=== PATIENT | male | born 1990 | race Caucasian/White ===

== ENCOUNTER 2016-06-25 06:15 | Emergency (ER) | payer SELFPAY ==
[2016-06-25] MEDS ORDERED: IPRATROPIUM/ALBUTEROL 0.5-2.5 MG/3 ML AMPUL NEB ONE (06:36)
[2016-06-25] MEDS ORDERED: NORMAL SALINE 1000 ML 1,000 ML IV ONE ×2 (06:36→07:51)
--- NOTE | 2016-06-25 06:57 | ER Document Report ---
ED Respiratory Problem - General Mode of Arrival: Medic Information source: Patient, Emergency Med Personnel TRAVEL OUTSIDE OF THE [place] IN LAST 30 DAYS: No - HPI Patient complains to provider of: Asthma Onset: Last week Duration: Continuous, Worse/persistent Initiating Event: Allergy - Possible dog allergy Context: Hx asthma, Hx COPD At home treatment: Bronchodilators EMS treatments: Bronchodilators, CPAP, Solumedrol Associated symptoms: Congestion, Cough, Difficulty breathing, Short of breath, Wheezing <PERLA MORGAN - Last Filed: 06/25/16 06:51> <COLETTE ENRIQUE - Last Filed: 06/25/16 10:31> - General Chief Complaint: Breathing Difficulty Stated Complaint: RESPIRATORY DISTRESS Notes: Patient is a 26-year-old male, with history including asthma and COPD, presenting to the emergency department via EMS with concerns of difficulty breathing onset last week, acutely worse this morning. Patient reports taking 150 "hits" on his inhaler, and it has stopped working. EMS administered 125 Solu-Medrol, 2 g magnesium, 1 A&A, 2 albuterol, patient on CPAP en route. EMS reports patient's O2 saturation being in the 80s when they first arrived. Patient states that he now is feeling much better. Patient admits to cough, but states he cannot get anything out. Patient does not know if he has been sick, but he does admit that his dog has been staying inside because he ran away last week, and he is allergic to dog and cat dander. Patient quit smoking in 2014, takes Advair and albuterol at home, and states that it has been 6 months since he was last on prednisone. (PERLA MORGAN) - Related Data Allergies/Adverse Reactions: peanut [Peanut] Allergy (Intermediate, Verified 10/08/15 09:58) ITCHY THROAT Past Medical History - General Information source: Patient - Social History Smoking Status: Former Smoker - Quit 2014 Family History: Reviewed & Not Pertinent Pulmonary Medical History: Reports: Hx Asthma, Hx COPD GI Medical History: Reports: Hx Gastroesophageal Reflux Disease Skin Medical History: Reports Hx Eczema - Immunizations Hx Diphtheria, Pertussis, Tetanus Vaccination: No Hx Pneumococcal Vaccination: 03/03/13 <PERLA MORGAN - Last Filed: 06/25/16 06:51> Review of Systems - Review of Systems Constitutional: No symptoms reported EENT: No symptoms reported Cardiovascular: No symptoms reported Respiratory: See HPI, Cough, Short of breath, Wheezing Gastrointestinal: No symptoms reported Genitourinary: No symptoms reported Male Genitourinary: No symptoms reported Musculoskeletal: No symptoms reported Skin: No symptoms reported Hematologic/Lymphatic: No symptoms reported Neurological/Psychological: No symptoms reported -: Yes All other systems reviewed and negative <PERLA MORGAN - Last Filed: 06/25/16 06:51> Physical Exam - General General appearance: Appears well, Alert - HEENT Head: Normocephalic, Atraumatic Eyes: Normal Pupils: PERRL - Respiratory Respiratory status: No respiratory distress Chest status: Nontender Breath sounds: Wheezing - Right-mild wheezes and rhonchi. Left- Very tight with more significant wheezing Chest palpation: Normal - Cardiovascular Rhythm: Regular Heart sounds: Normal auscultation Murmur: No - Abdominal Inspection: Normal Distension: No distension Bowel sounds: Normal Tenderness: Nontender Organomegaly: No organomegaly - Back Back: Normal, Nontender - Extremities General upper extremity: Normal inspection, Nontender General lower extremity: Normal inspection, Nontender - Neurological Neuro grossly intact: Yes Cognition: Normal Orientation: AAOx4 Wallace Coma Scale Eye Opening: Spontaneous Wallace Coma Scale Verbal: Oriented Clinton Coma Scale Motor: Obeys Commands Wallace Coma Scale Total: 15 Speech: Normal - Psychological Associated symptoms: Normal affect, Normal mood - Skin Skin Temperature: Warm Skin Moisture: Dry Skin Color: Normal <PERLA MORGAN - Last Filed: 06/25/16 06:51> Course <PERLA MORGAN - Last Filed: 06/25/16 06:51> - Laboratory Result Diagrams: 06/25/16 06:20 06/25/16 06:20 - Diagnostic Test Radiology reviewed: Image reviewed, Reports reviewed - Chest x-ray does not show an acute process - EKG Interpretation by Nc EKG shows normal: Sinus rhythm, Lutz, Intervals, QRS Complexes, ST-T Waves Rate: Normal - 99 Rhythm: Arrthymia <COLETTE ENRIQUE - Last Filed: 06/25/16 10:31> - Re-evaluation Re-evalutation: 06/25/16 10:28 At this time the patient states his breathing feels back to normal for him. There is only very slight faint wheezes noted. His pulse ox is 90% on room air , but he states this feels normal to him. He understands the need to have the dog outside of the house. He states he still has plenty of Advair at this time. (COLETTE ENRIQUE) - Vital Signs Vital signs: Temp Pulse Resp BP Pulse Ox 98.1 F 104 H 25 H 113/71 94 06/25/16 07:58 06/25/16 07:45 06/25/16 09:01 06/25/16 09:01 06/25/16 09:01 - Laboratory Laboratory results interpreted by me: 06/25/16 06/25/16 06/25/16 06:20 06:20 08:18 WBC 10.8 H Eosinophils % 6.7 H Absolute Eosinophils 0.7 H Sodium 146.6 H Chloride 108 H Urine Ketones TRACE H Discharge <PERLA MORGAN - Last Filed: 06/25/16 06:51> <COLETTE ENRIQUE - Last Filed: 06/25/16 10:31> - Discharge Clinical Impression: Acute severe exacerbation of asthma Condition: Stable Disposition: HOME, SELF-CARE Additional Instructions: Start the prednisone as prescribed tomorrow. Continue your Advair. Use the albuterol inhaler as needed for wheezing. Follow-up with a local medical doctor to help manage your asthma. RETURN TO THE EMERGENCY ROOM IF ANY NEW OR WORSENING SYMPTOMS. Prescriptions: Albuterol Sulfate [Proair HFA] 1 - 2 puff IH Q4 PRN #1 inhaler PRN Reason: Prednisone [Deltasone 10 mg Tablet] 10 mg PO ASDIR PRN #21 tablet PRN Reason: Scribe Attestation: 06/25/16 10:31 I personally performed the services described in the documentation, reviewed and edited the documentation which was dictated to the scribe in my presence, and it accurately records my words and actions. (COLETTE ENRIQUE)
[2016-06-25] MEDS ORDERED: PREDNISONE 20 MG TABLET PO ONE (07:45)
[2016-06-25 08:03] LABS: ABSOLUTE BASOPHILS # (AUTO) 0.1 10^3/uL (0.0-0.2); ABSOLUTE EOSINOPHILS # (AUTO) 0.7 10^3/uL (0.0-0.6); ABSOLUTE LYMPHOCYTES (AUTO) 1.8 10^3/uL (0.5-4.7); ABSOLUTE MONOCYTES (AUTO) 0.7 10^3/uL (0.1-1.4); ABSOLUTE NEUT (AUTO) 7.5 10^3/uL (1.7-8.2); BASOPHILS % (AUTO) 0.6 % (0-2); EOSINOPHILS % (AUTO) 6.7 % (0-6); HEMATOCRIT 46.5 % (37.9-51.0); HEMOGLOBIN 16.2 g/dL (13.5-17.0); HGB HCT DIFFERENCE 2.1; LYMPHOCYTES % (AUTO) 16.8 % (13-45); MEAN CORPUSCULAR HEMOGLOBIN 29.5 pg (27.0-33.4); MEAN CORPUSCULAR HGB CONC 34.8 g/dL (32.0-36.0); MEAN CORPUSCULAR VOLUME 85 fl (80-97); MONOCYTES % (AUTO) 6.8 % (3-13); RED BLOOD COUNT 5.48 10^6/uL (4.35-5.55); SEGMENTED NEUTROPHILS % (AUTO) 69.1 % (42-78); WHITE BLOOD COUNT 10.8 10^3/uL (4.0-10.5)
[2016-06-25 08:22] LABS: ALANINE AMINOTRANSFERASE 34 U/L (21-72); ALBUMIN 4.5 g/dL (3.5-5.0); ALKALINE PHOSPHATASE 108 U/L (38-126); ANION GAP 15 (5-19); ASPARTATE AMINO TRANSFERASE 23 U/L (17-59); BILIRUBIN,DIRECT 0.2 mg/dL (0.0-0.4); BILIRUBIN,TOTAL 0.7 mg/dL (0.2-1.3); BLOOD UREA NITROGEN 8 mg/dL (7-20); CALCIUM 9.6 mg/dL (8.4-10.2); CARBON DIOXIDE 24 mmol/L (22-30); CHLORIDE 108 mmol/L (98-107); CREATININE RESULT 0.97 mg/dL (0.52-1.25); GLUCOSE 94 mg/dL (75-110); POTASSIUM 4.3 mmol/L (3.6-5.0); SODIUM 146.6 mmol/L (137-145); TOTAL PROTEIN 7.3 g/dL (6.3-8.2)
[2016-06-25 08:42] LABS: APPEARANCE,URINE CLEAR; BILIRUBIN,URINE NEGATIVE (NEGATIVE); GLUCOSE, URINE NEGATIVE (NEGATIVE); KETONES,URINE TRACE mg/dL (NEGATIVE); LEUKOCYTE ESTERASE,URINE NEGATIVE (NEGATIVE); NITRITE,URINE NEGATIVE (NEGATIVE); PROTEIN,URINE NEGATIVE (NEGATIVE); URINE SPECIFIC GRAVITY 1.008; UROBILINOGEN,URINE NEGATIVE mg/dL (<2.0)
[2016-06-25] MEDS ORDERED: ALBUTEROL SULFATE 0.083% NEB 2.5 MG/3 ML AMPUL NEB ONE (09:13)
[2016-06-25 10:33] VITALS: BP 123/86
[2016-06-25] MEDS ORDERED: ALBUTEROL SULFATE HFA (90 MCG/PUFF) 8 GM MDI (1 MDI/ER DISP) IH ONE (10:37)
== END 2016-06-25 10:46 | disposition home or self-care (01) ==
LOC: ER 06:15
DX: J45.901 Unspecified asthma with (acute) exacerbation (principal); R06.02 Shortness of breath; J44.9 Chronic obstructive pulmonary disease, unspecified; Z79.899 Other long term (current) drug therapy; Z87.891 Personal history of nicotine dependence
CPT/HCPCS: 94640 ×2; 99285; 96360; 96361; 36415; 85025; 80053; 81001; 71010; J7512; J7030; J3490; J7620

== ENCOUNTER 2017-04-04 01:03 | Inpatient (IN) | payer SELFPAY ==
[2017-04-04] MEDS ORDERED: NORMAL SALINE 1000 ML 1,000 ML IV ONE (01:24)
[2017-04-04] MEDS ORDERED: MAGNESIUM SULFATE/D5W 1 GM/100 ML RTUPB IV SCH (01:30)
[2017-04-04] MEDS ORDERED: IPRATROPIUM/ALBUTEROL 0.5-2.5 MG/3 ML AMPUL NEB ONE ×2 (01:31→03:39)
--- NOTE | 2017-04-04 01:31 | ER Document Report ---
ED Respiratory Problem - General Mode of Arrival: Ambulatory Information source: Patient TRAVEL OUTSIDE OF THE [place] IN LAST 30 DAYS: No <MARCO WOLFF - Last Filed: 04/04/17 03:01> <VIRGINIA AUGUST - Last Filed: 04/04/17 05:50> - General Stated Complaint: FEVER Time Seen by Provider: 04/04/17 01:20 Notes: Patient is a 27 year old male that presents to the emergency department today with complaints of shortness of breath. Patient states he woke up from a sleep "drenched in sweat". He has a history of asthma. Patient complains of nasal congestion. (MARCO WOLFF) - Related Data Allergies/Adverse Reactions: peanut [Peanut] Allergy (Intermediate, Verified 10/08/15 09:58) ITCHY THROAT Past Medical History - General Information source: Patient - Social History Smoking Status: Never Smoker Cigarette use (# per day): No Frequency of alcohol use: None Drug Abuse: None Lives with: Family Family History: Reviewed & Not Pertinent Pulmonary Medical History: Reports: Hx Asthma, Hx COPD GI Medical History: Reports: Hx Gastroesophageal Reflux Disease Skin Medical History: Reports Hx Eczema Surgical Hx: Negative - Immunizations Hx Diphtheria, Pertussis, Tetanus Vaccination: No Hx Pneumococcal Vaccination: 03/03/13 <MARCO WOLFF - Last Filed: 04/04/17 03:01> Review of Systems - Review of Systems Constitutional: See HPI, Fever EENT: No symptoms reported Cardiovascular: No symptoms reported Respiratory: See HPI, Short of breath Gastrointestinal: No symptoms reported Genitourinary: No symptoms reported Male Genitourinary: No symptoms reported Musculoskeletal: No symptoms reported Skin: No symptoms reported Hematologic/Lymphatic: No symptoms reported Neurological/Psychological: No symptoms reported -: Yes All other systems reviewed and negative <MARCO WOLFF - Last Filed: 04/04/17 03:01> Physical Exam - Vital signs Interpretation: Tachycardic, Tachypneic, Febrile <MARCO WOLFF - Last Filed: 04/04/17 03:01> <VIRGINIA AUGUST - Last Filed: 04/04/17 05:50> - Vital signs Vitals: Resp Pulse Ox 23 H 92 04/04/17 01:11 04/04/17 01:11 - Notes Notes: Physical Exam: General: Alert, mild distress. HEENT: Normocephalic. Atraumatic. PERRL. Extraocular movements intact. Oropharynx clear. Neck: Supple. Non-tender. Respiratory: Mild respiratory distress. Wheezing throughout bilaterally. Tachypneic. Cardiovascular: Tachycardic, regular rhythm.3 Abdominal: Normal Inspection. Non-tender. No distension. Normal Bowel Sounds. Back: Non-tender. No deformity or step off. Extremities: Moves all four extremities. Upper extremities: Normal inspection. Normal ROM. Lower extremities: Normal inspection. No edema. Normal ROM. Neurological: Normal cognition. AAOx4. Normal speech. Psychological: Normal affect. Normal Mood. Skin: Warm. Dry. Normal color. (MARCO WOLFF) Course - Laboratory Result Diagrams: 04/04/17 01:45 04/04/17 01:45 <MARCO WOLFF - Last Filed: 04/04/17 03:01> - Laboratory Result Diagrams: 04/04/17 01:45 04/04/17 01:45 - Diagnostic Test Radiology reviewed: Image reviewed, Reports reviewed <VIRGINIA AUGUST - Last Filed: 04/04/17 05:50> - Re-evaluation Re-evalutation: 04/04/17 Patient is a 27-year-old male who comes in with upper respiratory symptoms. Flu swab negative. Blood work within normal limits. Patient has been intubated in the past for flu. Blood gas within normal limits however the patient is still wheezing. Ambulated in the department and oxygen saturation drops to 80s. Patient will be admitted. Placed on BiPAP so that the patient could rest. Discussed with the hospitalist service and will accept the patient for admission. Patient agrees with this plan. Stable time of admission. (VIRGINIA AUGUST) - Vital Signs Vital signs: Temp Pulse Resp BP Pulse Ox 100.6 F H 128 H 14 115/75 96 04/04/17 01:30 04/04/17 01:30 04/04/17 05:01 04/04/17 05:01 04/04/17 05:01 - Laboratory Laboratory results interpreted by nv: 04/04/17 04/04/17 04/04/17 01:45 01:45 01:45 Plt Count 134 L Seg Neuts % (Manual) 95 H Band Neutrophils % 1 L Lymphocytes % (Manual) 2 L Monocytes % (Manual) 2 L Abs Lymphs (Manual) 0.1 L VBG pCO2 34.8 L Potassium 3.3 L Glucose 167 H Critical Care Note - Critical Care Note Total time excluding time spent on procedures (mins): 45 - Evaluation and management of respiratory distress with multiple re-evaluations, management of status asthmaticus, coordination of admission, counseling of patient <VIRGINIA AUGUST - Last Filed: 04/04/17 05:50> Discharge <MARCO WOLFF - Last Filed: 04/04/17 03:01> - Discharge Admitting Provider: [facility] Unit Admitted: [facility] <VIRGINIA AUGUST - Last Filed: 04/04/17 05:50> - Discharge Clinical Impression: Status asthmaticus Qualifiers: Asthma severity: moderate Asthma persistence: persistent Qualified Code(s): J45.42 - Moderate persistent asthma with status asthmaticus Fever Qualifiers: Fever type: unspecified Qualified Code(s): R50.9 - Fever, unspecified Condition: Stable Disposition: ADMITTED INPATIENT Scribe Attestation: 04/04/17 05:50 I personally performed the services described in the documentation, reviewed and edited the documentation which was dictated to the scribe in my presence, and it accurately records my words and actions. (VIRGINIA AUGUST) Scribe Documentation - Scribe Written by Brittaneyibramirez:: Katharine Paige, 04/04/2017 0258 acting as scribe for :: Pooja <MARCO WOLFF - Last Filed: 04/04/17 03:01>
--- NOTE | 2017-04-04 02:21 | RADIOLOGY REPORT (SQ) ---
EXAM DESCRIPTION: CHEST SINGLE VIEW COMPLETED DATE/TIME: 04/04/2017 1:46 am REASON FOR STUDY: sob COMPARISON: Chest x-ray 06/25/2016. EXAM PARAMETERS: NUMBER OF VIEWS: One view. TECHNIQUE: 2 frontal radiographic views of the chest acquired. RADIATION DOSE: NA LIMITATIONS: None. FINDINGS: LUNGS AND PLEURA: No consolidation, pneumothorax or pleural effusion. MEDIASTINUM AND HILAR STRUCTURES: No masses. Contour normal. HEART AND VASCULAR STRUCTURES: Heart normal in size. Normal vasculature. BONES: No acute findings. HARDWARE: None in the chest. IMPRESSION: No acute radiographic finding in the chest. TECHNICAL DOCUMENTATION: JOB ID: [id number] 2010 [employer]- All Rights Reserved
[2017-04-04 02:22] LABS: HEMATOCRIT 41.3 % (37.9-51.0); HEMOGLOBIN 14.3 g/dL (13.5-17.0); MEAN CORPUSCULAR HEMOGLOBIN 29.8 pg (27.0-33.4); MEAN CORPUSCULAR HGB CONC 34.6 g/dL (32.0-36.0); MEAN CORPUSCULAR VOLUME 86 fl (80-97); PLATELET COUNT 134 10^3/uL (150-450); RED BLOOD COUNT 4.79 10^6/uL (4.35-5.55); WHITE BLOOD COUNT 6.8 10^3/uL (4.0-10.5)
[2017-04-04 02:24] LABS: INTERNATIONAL RATION (INR) 1.05; PROTHROMBIN TIME 14.4 SEC (11.4-15.4)
[2017-04-04 02:37] LABS: A TYPE INFLUENZA AG NEGATIVE (NEGATIVE); B INFLUENZA AG NEGATIVE (NEGATIVE)
[2017-04-04 02:52] LABS: VENOUS BLOOD BASE EXCESS -1.9 mmol/L; VENOUS BLOOD HCO3 21.9 mmol/L (20-32); VENOUS BLOOD PCO2 34.8 mmHg (35-63); VENOUS BLOOD PH 7.42 (7.30-7.42)
[2017-04-04 02:56] LABS: ABSOLUTE LYMPHOCYTES# (MANUAL) 0.1 10^3/uL (0.5-4.7); ABSOLUTE MONOCYTES # (MANUAL) 0.1 10^3/uL (0.1-1.4); ABSOLUTE NEUTROPHILS# (MANUAL) 6.5 10^3/uL (1.7-8.2); BAND NEUTROPHILS % (MANUAL) 1 % (3-5); BASOPHILS % (MANUAL) 0 % (0-2); EOSINOPHILS % (MANUAL) 0 % (0-6); LYMPHOCYTES % (MANUAL) 2 % (13-45); MONOCYTES % (MANUAL) 2 % (3-13); SEGMENTED NEUTROPHILS % (MAN) 95 % (42-78); TOTAL CELLS COUNTED 100
[2017-04-04 02:57] LABS: OVALOCYTES SLIGHT; POIKILOCYTOSIS SLIGHT
[2017-04-04 02:58] LABS: PLATELET COMMENT DECREASED; TEAR DROP CELLS SLIGHT
[2017-04-04 03:15] LABS: ALANINE AMINOTRANSFERASE 29 U/L (21-72); ALBUMIN 4.3 g/dL (3.5-5.0); ALKALINE PHOSPHATASE 78 U/L (38-126); ANION GAP 13 (5-19); ASPARTATE AMINO TRANSFERASE 25 U/L (17-59); BILIRUBIN,DIRECT 0.2 mg/dL (0.0-0.4); BILIRUBIN,TOTAL 0.6 mg/dL (0.2-1.3); BLOOD UREA NITROGEN 10 mg/dL (7-20); CARBON DIOXIDE 22 mmol/L (22-30); CHLORIDE 105 mmol/L (98-107); GLUCOSE 167 mg/dL (75-110); POTASSIUM 3.3 mmol/L (3.6-5.0); SODIUM 139.5 mmol/L (137-145); TOTAL PROTEIN 6.7 g/dL (6.3-8.2)
[2017-04-04] MEDS ORDERED: TERBUTALINE SULFATE INJ/PF 1 MG/1 ML SDV SUBCUT ONE (03:39)
[2017-04-04 03:41] LABS: APPEARANCE,URINE CLEAR; BILIRUBIN,URINE NEGATIVE (NEGATIVE); COLOR,URINE YELLOW; GLUCOSE, URINE NEGATIVE (NEGATIVE); KETONES,URINE NEGATIVE (NEGATIVE); LEUKOCYTE ESTERASE,URINE NEGATIVE (NEGATIVE); NITRITE,URINE NEGATIVE (NEGATIVE); PROTEIN,URINE NEGATIVE (NEGATIVE); URINE SPECIFIC GRAVITY 1.008; UROBILINOGEN,URINE NEGATIVE mg/dL (<2.0)
[2017-04-04] MEDS ORDERED: ALBUTEROL SULFATE 0.083% NEB 2.5 MG/3 ML AMPUL NEB ONE (04:13)
[2017-04-04] MEDS ORDERED: HYDRALAZINE HCL INJ/PF 20 MG/1 ML SDV IV PRN (04:40)
[2017-04-04] MEDS ORDERED: ACETAMINOPHEN 325 MG TABLET PO PRN (04:40)
[2017-04-04] MEDS ORDERED: AZITHROMYCIN INJ 500 MG VIAL IV ONE (04:40)
[2017-04-04] MEDS ORDERED: IPRATROPIUM/ALBUTEROL 0.5-2.5 MG/3 ML AMPUL NEB PRN (04:40)
[2017-04-04] MEDS ORDERED: CEFTRIAXONE 1 GM/D5W RTU 1 GM/50 ML RTUPB IV ONE (04:40)
[2017-04-04] MEDS ORDERED: CHLORPHENIRAMINE MALEATE 4 MG TABLET PO ONE (04:40)
[2017-04-04] MEDS ORDERED: NORMAL SALINE 1000 ML 1,000 ML IV PRN (04:45)
[2017-04-04] MEDS ORDERED: FLUTICASONE NASAL SPRAY 50 MCG/SPRY 120 SPRAY/16 GM NASL ONE (05:00)
[2017-04-04] MEDS ORDERED: METHYLPREDNISOLONE INJ 125 MG/2 ML SDV IV ONE (05:00)
[2017-04-04] MEDS ORDERED: FLUTICASONE NASAL SPRAY 50 MCG/SPRY 120 SPRAY/16 GM ONE (05:37)
[2017-04-04] MEDS ORDERED: CHLORPHENIRAMINE MALEATE 4 MG TABLET ONE (05:37)
[2017-04-04] MEDS ORDERED: CEFTRIAXONE INJ 1000 MG VIAL IV ONE (05:47)
--- NOTE | 2017-04-04 06:15 | PDOC H&P ---
History of Present Illness Admission Date/PCP: 04/04/17 04:50 Patient complains of: Shortness of breath and wheeze History of Present Illness: NIGEL RAMOS is a 27 year old male with a past medical history of exercise and cold weather induced asthma. Patient presents with 12 hours of rhinorrhea fever and shortness of breath. He admits history of requiring intubation for asthma exacerbation 2 years ago. He denies change in medications and otherwise client with medication regiment. In the emergency room he is found to have severe tachypnea with poor air movement, global wheeze, fever, paroxysms of cough and unable to speak full sentences. He receives continuous albuterol and placed on BiPAP and referred to the hospitalist for admission. Past Medical History Pulmonary Medical History: Reports: Asthma, Chronic Obstructive Pulmonary Disease (COPD) Denies: Tuberculosis GI Medical History: Reports: Gastroesophageal Reflux Disease Skin Medical History: Reports: Eczema Psychiatric Medical History: Denies: Depression Social History Lives with: Family Smoking Status: Never Smoker Frequency of Alcohol Use: None Hx Recreational Drug Use: Yes Drugs: Marijuana Hx Prescription Drug Abuse: No - Advance Directive Resuscitation Status: Full Code Family History Family History: COPD Parental Family History Reviewed: Yes Children Family History Reviewed: Yes Sibling(s) Family History Reviewed.: Yes Medication/Allergy Home Medications: Albuterol Sulfate [Albuterol Sulfate Hfa] 1 - 2 puff IH Q4 PRN 08/13/14 Fluticasone/Salmeterol [Advair 250-50 Diskus 28 dose] 1 inh IH Q12H #1 inhaler 10/10/15 Ipratropium/Albuterol Sulfate [Duoneb 3 ml Ampul] 3 ml NEB RTQ3HP PRN #60 vial.neb 10/10/15 Prednisone [Sterapred Ds] 1 pkg PO ASDIR PRN 12 Days tab.ds.pk 10/10/15 Ipratropium/Albuterol Sulfate [Duoneb 3 ml Ampul] 3 ml NEB RTQ2HP PRN #30 vial.neb 01/08/16 Prednisone 40 mg PO DAILY #8 tablet 01/08/16 Albuterol Sulfate [Proair HFA] 1 - 2 puff IH Q4 PRN #1 inhaler 06/25/16 Prednisone [Deltasone 10 mg Tablet] 10 mg PO ASDIR PRN #21 tablet 06/25/16 Allergies/Adverse Reactions: peanut [Peanut] Allergy (Intermediate, Verified 10/08/15 09:58) ITCHY THROAT Review of Systems Constitutional: ABSENT: chills, fever(s), headache(s), weight gain, weight loss Eyes: ABSENT: visual disturbances Ears: ABSENT: hearing changes Cardiovascular: ABSENT: chest pain, dyspnea on exertion, edema, orthropnea, palpitations Respiratory: ABSENT: cough, hemoptysis Gastrointestinal: ABSENT: abdominal pain, constipation, diarrhea, hematemesis, hematochezia, nausea, vomiting Genitourinary: ABSENT: dysuria, hematuria Musculoskeletal: ABSENT: joint swelling Integumentary: ABSENT: rash, wounds Neurological: ABSENT: abnormal gait, abnormal speech, confusion, dizziness, focal weakness, syncope Psychiatric: ABSENT: anxiety, depression, homidical ideation, suicidal ideation Endocrine: ABSENT: cold intolerance, heat intolerance, polydipsia, polyuria Hematologic/Lymphatic: ABSENT: easy bleeding, easy bruising Physical Exam Vital Signs: Temp Pulse Resp BP Pulse Ox 100.6 F H 128 H 14 115/75 96 04/04/17 01:30 04/04/17 01:30 04/04/17 05:01 04/04/17 05:01 04/04/17 05:01 General appearance: PRESENT: cooperative, severe distress Head exam: PRESENT: atraumatic, normocephalic Eye exam: PRESENT: conjunctiva pink, EOMI, PERRLA. ABSENT: scleral icterus Ear exam: PRESENT: normal external ear exam Mouth exam: PRESENT: moist, tongue midline Neck exam: ABSENT: carotid bruit, JVD, lymphadenopathy, thyromegaly Respiratory exam: PRESENT: accessory muscle use, crackles, prolonged expiratory phas, retraction, symmetrical, tachypnea, wheezes. ABSENT: chest wall tenderness, clear to auscultation charanjit, stridor Cardiovascular exam: PRESENT: RRR. ABSENT: diastolic murmur, rubs, systolic murmur Pulses: PRESENT: normal dorsalis pedis pul Vascular exam: PRESENT: normal capillary refill GI/Abdominal exam: PRESENT: normal bowel sounds, soft. ABSENT: distended, guarding, mass, organolmegaly, rebound, tenderness Rectal exam: PRESENT: deferred Extremities exam: PRESENT: full ROM. ABSENT: calf tenderness, clubbing, pedal edema Neurological exam: PRESENT: alert, awake, oriented to person, oriented to place , oriented to time, oriented to situation, CN II-XII grossly intact. ABSENT: motor sensory deficit Psychiatric exam: PRESENT: appropriate affect, normal mood. ABSENT: homicidal ideation, suicidal ideation Skin exam: PRESENT: dry, intact, warm. ABSENT: cyanosis, rash Results Impressions: Chest X-Ray 04/04/17 00:00 IMPRESSION: No acute radiographic finding in the chest. Assessment & Plan - Diagnosis (1) Asthma exacerbation Is this a current diagnosis for this admission?: Yes Plan: Albuterol and Atrovent, incentive spirometry, Solu-Medrol, peak flow evaluation. (2) Acute bronchitis Is this a current diagnosis for this admission?: Yes Plan: Flutter valve and empiric antibiotics, Flonase, (3) Tobacco abuse Is this a current diagnosis for this admission?: Yes Plan: Tobacco Dependence patient received tobacco cessation counseling and offered nicotine replacement options - Time Time Spent: 50 to 70 Minutes - Inpatient Certification Medical Necessity: Need Close Monitoring Due to Risk of Patient Decompensation
[2017-04-04] MEDS: LANSOPRAZOLE 30 MG TAB.RAP.DR PO SCH ×2 (07:03→18:09)
[2017-04-04] MEDS: HEPARIN SOD (PORCINE) 5,000 UNIT/ML 1 ML SYRINGE SUBCUT SCH ×3 (07:03→21:04)
[2017-04-04] MEDS: IPRATROPIUM/ALBUTEROL 0.5-2.5 MG/3 ML AMPUL NEB SCH ×3 (07:58→19:53)
--- NOTE | 2017-04-04 08:06 | EKG REPORT ---
SEVERITY:- ABNORMAL ECG - SINUS TACHYCARDIA BORDERLINE RIGHT AXIS DEVIATION NONSPECIFIC REPOL ABNORMALITY, INFERIOR LEADS : Confirmed by: Denzel Drake MD 04-Apr-2017 08:05:53
[2017-04-04] MEDS: LEVOFLOXACIN 750 MG/D5W RTU 750 MG/150 ML RTUPB IV SCH (09:46)
[2017-04-04] MEDS: METHYLPREDNISOLONE INJ 125 MG/2 ML SDV IV SCH ×2 (13:45→21:03)
[2017-04-04] MEDS ORDERED: INFLUENZA ADLT QUAD (36MOS+) 2017-18 VAC 0.5 ML SYR IM PRN (14:46)
--- NOTE | 2017-04-04 18:39 | Progress Note ---
Provider Note Provider Note: This is a 27 yo man with hx asthma and intubation for exacerbation who was admitted to hospitalist service today for PNA and asthma excaerbation after being exposed to sick coworkers. THis am on my eval he is breathing better, no new dyspnea, has dry burning cough, no phlegm, no fever or chills. No other acute pain. Has been able to eat today. Feels exhausted. On exam he si AAO and in NAD, on bipapa but takes it off and does well for a few minutes. EOMi, mucous membranes somewhat dry, neck supple, with tigh neck musculature. Fair air movement with no wheezes, ronchi or rales. Cardica mild tachy and no murmurs. AD soft NT and ND with normal bowel sounds. No LE edema. Assessment and plan: overall imrpoved and will cont orders entered on admission, await cultures. Encoursge po intake. Possible DC tomorrow.
[2017-04-04] MEDS: FLUTICASONE NASAL SPRAY 50 MCG/SPRY 120 SPRAY/16 GM NASL SCH (21:48)
[2017-04-05] MEDS: IPRATROPIUM/ALBUTEROL 0.5-2.5 MG/3 ML AMPUL NEB SCH ×4 (01:27→20:08)
[2017-04-05] MEDS: HEPARIN SOD (PORCINE) 5,000 UNIT/ML 1 ML SYRINGE SUBCUT SCH ×3 (05:04→22:21)
[2017-04-05] MEDS: LANSOPRAZOLE 30 MG TAB.RAP.DR PO SCH ×2 (05:08→16:07)
[2017-04-05] MEDS: METHYLPREDNISOLONE INJ 125 MG/2 ML SDV IV SCH ×3 (05:08→22:25)
[2017-04-05 08:00] LABS: ABSOLUTE LYMPHOCYTES (AUTO) 0.9 10^3/uL (0.5-4.7); ABSOLUTE MONOCYTES (AUTO) 0.5 10^3/uL (0.1-1.4); ABSOLUTE NEUT (AUTO) 14.5 10^3/uL (1.7-8.2); HEMATOCRIT 40.9 % (37.9-51.0); LYMPHOCYTES % (AUTO) 5.5 % (13-45); MEAN CORPUSCULAR HEMOGLOBIN 29.8 pg (27.0-33.4); MEAN CORPUSCULAR HGB CONC 34.2 g/dL (32.0-36.0); MEAN CORPUSCULAR VOLUME 87 fl (80-97); MONOCYTES % (AUTO) 3.2 % (3-13); PLATELET COUNT 165 10^3/uL (150-450); RED CELL DISTRIBUTION WIDTH 13.2 % (11.5-14.0); SEGMENTED NEUTROPHILS % (AUTO) 91.3 % (42-78); TOTAL CELLS COUNTED % (AUTO) 100 %
[2017-04-05 08:02] LABS: WHITE BLOOD COUNT 15.9 10^3/uL (4.0-10.5)
[2017-04-05 08:10] LABS: ANION GAP 12 (5-19); BLOOD UREA NITROGEN 14 mg/dL (7-20); CALCIUM 9.2 mg/dL (8.4-10.2); CARBON DIOXIDE 27 mmol/L (22-30); CHLORIDE 107 mmol/L (98-107); GLUCOSE 152 mg/dL (75-110); POTASSIUM 4.1 mmol/L (3.6-5.0); SODIUM 146.1 mmol/L (137-145)
[2017-04-05] MEDS: FLUTICASONE NASAL SPRAY 50 MCG/SPRY 120 SPRAY/16 GM NASL SCH ×2 (10:16→22:26)
[2017-04-05] MEDS: LEVOFLOXACIN 750 MG/D5W RTU 750 MG/150 ML RTUPB IV SCH (10:16)
--- NOTE | 2017-04-05 16:45 | PDOC PROGRESS REPORT ---
Subjective Progress Note for:: 04/05/17 Subjective:: Feeling better but not back to baseline. Continues to be wheezy. Notes that he had sick contacts at home which likely tipped off acute asthma exacerbation. Denies fevers, chills, CP, NV. PO intake decent. NO other complaints. Reason For Visit: ASTHMA ATTACK, PNEUMONIA Physical Exam Vital Signs: Temp Pulse Resp BP Pulse Ox 97.4 F 101 H 16 121/71 95 04/05/17 16:05 04/05/17 16:05 04/05/17 16:05 04/05/17 16:05 04/05/17 16:05 Intake & Output 04/04/17 04/05/17 04/06/17 06:59 06:59 06:59 Intake Total 10 780 Output Total 1485 Balance -1475 780 Weight 90.7 kg General appearance: PRESENT: no acute distress Head exam: PRESENT: atraumatic, normocephalic Mouth exam: PRESENT: moist Respiratory exam: PRESENT: unlabored, wheezes, other - On Supplemental O2 Cardiovascular exam: PRESENT: +S1, +S2, tachycardia Neurological exam: PRESENT: alert, awake, CN II-XII grossly intact Psychiatric exam: ABSENT: anxious Results Laboratory Results: 04/05/17 06:26 04/05/17 06:26 04/05/17 04/05/17 06:26 06:26 WBC 15.9 H D RBC 4.70 Hgb 14.0 Hct 40.9 MCV 87 MCH 29.8 MCHC 34.2 RDW 13.2 Plt Count 165 Seg Neutrophils % 91.3 H Lymphocytes % 5.5 L Monocytes % 3.2 Eosinophils % 0.0 Basophils % 0.0 Absolute Neutrophils 14.5 H Absolute Lymphocytes 0.9 Absolute Monocytes 0.5 Absolute Eosinophils 0.0 Absolute Basophils 0.0 Sodium 146.1 H Potassium 4.1 Chloride 107 Carbon Dioxide 27 Anion Gap 12 BUN 14 Creatinine 0.89 Est GFR ( Amer) > 60 Est GFR (Non-Af Amer) > 60 Glucose 152 H Calcium 9.2 Impressions: Chest X-Ray 04/04/17 00:00 IMPRESSION: No acute radiographic finding in the chest. Assessment & Plan - Diagnosis (1) Asthma exacerbation Qualifiers: Asthma severity: moderate Asthma persistence: persistent Qualified Code(s ): J45.41 - Moderate persistent asthma with (acute) exacerbation Is this a current diagnosis for this admission?: Yes Plan: Improving, continue treatment for acute asthma exacerbation - Will d/c IV steroid tonight and start PO Prednisone 60mg daily for 5 additional days - Continue Duonebs, Flonase, - On Levaquin, will continue for 5 day course - Wean O2 as tolerated - Encouraged to ambulate (2) Acute bronchitis Is this a current diagnosis for this admission?: Yes Plan: Will continue to treated with Levaquin for 5 days total - Blood cultures NGTD - Treatment per above (3) Leukocytosis Qualifiers: Leukocytosis type: other Qualified Code(s): D72.828 - Other elevated white blood cell count Is this a current diagnosis for this admission?: Yes Plan: Due to steroid use. - Time Time Spent with patient: Less than 15 minutes Anticipated discharge: Home Within: within 24 hours
[2017-04-06] MEDS: IPRATROPIUM/ALBUTEROL 0.5-2.5 MG/3 ML AMPUL NEB SCH ×2 (02:01→08:49)
[2017-04-06 04:53] LABS: HEMATOCRIT 40.2 % (37.9-51.0); HEMOGLOBIN 13.7 g/dL (13.5-17.0); MEAN CORPUSCULAR HEMOGLOBIN 29.8 pg (27.0-33.4); MEAN CORPUSCULAR HGB CONC 34.2 g/dL (32.0-36.0); MEAN CORPUSCULAR VOLUME 87 fl (80-97); PLATELET COUNT 159 10^3/uL (150-450); RED BLOOD COUNT 4.61 10^6/uL (4.35-5.55); RED CELL DISTRIBUTION WIDTH 13.3 % (11.5-14.0); WHITE BLOOD COUNT 12.8 10^3/uL (4.0-10.5)
[2017-04-06] MEDS: HEPARIN SOD (PORCINE) 5,000 UNIT/ML 1 ML SYRINGE SUBCUT SCH ×2 (05:08→13:17)
[2017-04-06] MEDS: LANSOPRAZOLE 30 MG TAB.RAP.DR PO SCH (05:19)
[2017-04-06] MEDS: FLUTICASONE NASAL SPRAY 50 MCG/SPRY 120 SPRAY/16 GM NASL SCH (09:29)
[2017-04-06] MEDS: LEVOFLOXACIN 750 MG/D5W RTU 750 MG/150 ML RTUPB IV SCH (09:29)
[2017-04-06] MEDS ORDERED: PREDNISONE 20 MG TABLET PO SCH (10:00)
[2017-04-06 12:10] VITALS: BP 126/70
--- NOTE | 2017-04-06 18:38 | PDOC DISCHARGE SUMMARY ---
General - Admit/Disc Date/PCP Admission Date/Primary Care Provider: 04/04/17 04:50 Discharge Date: 04/06/17 - Discharge Diagnosis (1) Asthma exacerbation Is this a current diagnosis for this admission?: Yes Summary: Severe asthma with frequent admission. Less over last year now that he stopped smoking and out of house with mold. On day of discharge, Improved Outpatient plan - Script given for PO Prednisone 60mg daily for 4 additional days. Also gave script for Singulair 10mg PO at night - SCript given for Levofloxacin for 4 additional day - Continue home Advair and Albuterol PNR - Should follow up with PCP, list of local providers given (2) Acute bronchitis Is this a current diagnosis for this admission?: Yes Summary: Improved. Will continue to treated with Levaquin for 5 days total, Blood cultures NGTD (3) Leukocytosis Is this a current diagnosis for this admission?: Yes Summary: Downtrending, due to steroids, has been afebrile - Additional Information Resuscitation Status: Full Code Discharge Diet: Regular Discharge Activity: Activity As Tolerated Prescriptions: Montelukast Sodium [Singulair] 10 mg PO QHS 30 Days #30 tablet Prednisone [Deltasone 20 mg Tablet] 60 mg PO DAILY 4 Days #12 tablet Home Medications: Albuterol Sulfate [Proair HFA] 1 puff IH Q4HP PRN 04/04/17 Fluticasone/Salmeterol [Advair 250-50 Diskus 28 dose] 1 puff IH Q12 04/04/17 Multivitamin [Multiple Vitamins] 1 tab PO DAILY 04/04/17 Montelukast Sodium [Singulair] 10 mg PO QHS 30 Days #30 tablet 04/06/17 Prednisone [Deltasone 20 mg Tablet] 60 mg PO DAILY 4 Days #12 tablet 04/06/17 History of Present Illness Patient complains of: SOB History of Present Illness: NIGEL RAMOS is a 27 year old male with a past medical history of exercise and cold weather induced asthma. Patient presents with 12 hours of rhinorrhea fever and shortness of breath. He admits history of requiring intubation for asthma exacerbation 2 years ago. He denies change in medications and otherwise client with medication regiment. In the emergency room he is found to have severe tachypnea with poor air movement, global wheeze, fever, paroxysms of cough and unable to speak full sentences. He receives continuous albuterol and placed on BiPAP and referred to the hospitalist for admission. Physical Exam Vital Signs: Temp Pulse Resp BP Pulse Ox 98.0 F 92 16 126/70 H 94 04/06/17 12:52 04/06/17 12:52 04/06/17 12:52 04/06/17 12:52 04/06/17 12:52 Intake & Output 04/05/17 04/06/17 04/07/17 06:59 06:59 06:59 Intake Total 10 1664 720 Output Total 1485 Balance -1475 1664 720 Weight 90.7 kg 90.7 kg General appearance: PRESENT: no acute distress, well-developed, well-nourished Mouth exam: PRESENT: moist Respiratory exam: PRESENT: unlabored, wheezes - Scattered inspiratory, other - Off supplemental O2. ABSENT: crackles, stridor Cardiovascular exam: ABSENT: systolic murmur, tachycardia GI/Abdominal exam: PRESENT: soft Musculoskeletal exam: PRESENT: ambulatory Neurological exam: PRESENT: alert, awake, CN II-XII grossly intact Psychiatric exam: ABSENT: anxious Results Laboratory Results: 04/06/17 03:56 04/05/17 06:26 04/06/17 03:56 WBC 12.8 H RBC 4.61 Hgb 13.7 Hct 40.2 MCV 87 MCH 29.8 MCHC 34.2 RDW 13.3 Plt Count 159 Impressions: Chest X-Ray 04/04/17 00:00 IMPRESSION: No acute radiographic finding in the chest.
== END 2017-04-06 13:49 | disposition home or self-care (01) | DRG 202 ==
LOC: ER 01:03 → EH 04:50 → 5 14:11
PROVIDERS: ADMIT Internal Medicine; ATTEND Internal Medicine
DX: J20.9 Acute bronchitis, unspecified (principal); J45.41 Moderate persistent asthma with (acute) exacerbation; T38.0X5A Adverse effect of glucocorticoids and synthetic analogues, initial encounter; D72.829 Elevated white blood cell count, unspecified; Z87.891 Personal history of nicotine dependence
CPT/HCPCS: 36415; 71045; 80048; 80053; 81001; 82803; 83605; 85025; 85027; 85610; 87040; 87086; 87804; 90686; 93005; 93010; 94640; 94660; 96360; 96372; 99291; J0456; J0696; J1644; J1956; J2930; J3105; J3490; J7030; J7512; J7620

== ENCOUNTER 2017-10-01 04:59 | Emergency (ER) | payer SELFPAY ==
[2017-10-01] MEDS ORDERED: ALBUTEROL SULFATE 0.083% NEB 2.5 MG/3 ML AMPUL NEB ONE (05:06)
--- NOTE | 2017-10-01 05:09 | ER Document Report ---
Doctor's Note Notes: 10/01/17 05:07 Performed a quick triage evaluation the patient. Patient is a pleasant 27-year- old male who presents with complaint of difficulty breathing, tightness in the lungs, wheezing, rhonchorous breath sounds. He says for the last 1-2 days he has had worsening difficulty breathing as have been using his inhaler much more frequently. Tonight he went to bed and then woke up with significant distress. He is sweating and working very hard to breathe. He called the ambulance. Paramedics gave him 2 DuoNeb treatments as well as Solu-Medrol. Apparently when they arrived he was in a tripod position working very hard.. On exam now the patient is able speak in full sentences while seeing his current breathing treatment. His lung weldon are still tight and wheezing with fair air movement. I have ordered magnesium IV. I have ordered baseline blood work. I have ordered repeat breathing treatments. Dictation of this chart was performed using voice recognition software; therefore, there may be some unintended grammatical errors. 10/01/17 05:09
[2017-10-01] MEDS: MAGNESIUM SULFATE/D5W 1 GM/100 ML RTUPB IV SCH ×2 (05:22→06:31)
[2017-10-01 05:54] LABS: ABSOLUTE EOSINOPHILS # (AUTO) 0.6 10^3/uL (0.0-0.6); ABSOLUTE LYMPHOCYTES (AUTO) 1.3 10^3/uL (0.5-4.7); ABSOLUTE MONOCYTES (AUTO) 0.5 10^3/uL (0.1-1.4); ABSOLUTE NEUT (AUTO) 8.2 10^3/uL (1.7-8.2); BASOPHILS % (AUTO) 0.2 % (0-2); EOSINOPHILS % (AUTO) 5.5 % (0-6); HEMATOCRIT 42.9 % (37.9-51.0); HEMOGLOBIN 14.7 g/dL (13.5-17.0); LYMPHOCYTES % (AUTO) 11.8 % (13-45); MEAN CORPUSCULAR HEMOGLOBIN 29.6 pg (27.0-33.4); MEAN CORPUSCULAR HGB CONC 34.2 g/dL (32.0-36.0); MEAN CORPUSCULAR VOLUME 87 fl (80-97); PLATELET COUNT 168 10^3/uL (150-450); RED BLOOD COUNT 4.95 10^6/uL (4.35-5.55); RED CELL DISTRIBUTION WIDTH 13.6 % (11.5-14.0); SEGMENTED NEUTROPHILS % (AUTO) 77.5 % (42-78); TOTAL CELLS COUNTED % (AUTO) 100 %; WHITE BLOOD COUNT 10.6 10^3/uL (4.0-10.5)
[2017-10-01 06:15] LABS: ANION GAP 13 (5-19); BLOOD UREA NITROGEN 8 mg/dL (7-20); CARBON DIOXIDE 23 mmol/L (22-30); CHLORIDE 111 mmol/L (98-107); GLUCOSE 88 mg/dL (75-110); POTASSIUM 3.8 mmol/L (3.6-5.0); SODIUM 146.9 mmol/L (137-145)
[2017-10-01] MEDS ORDERED: METHYLPREDNISOLONE INJ 125 MG/2 ML SDV IV ONE (06:46)
--- NOTE | 2017-10-01 07:25 | RADIOLOGY REPORT (SQ) ---
EXAM DESCRIPTION: XR CHEST 1 VIEW COMPLETED DATE/TME: 10/01/2017 06:44 CLINICAL HISTORY: 27 years Male, sob COMPARISON: 2.2.18 NUMBER OF VIEWS/TECHNIQUE: 1/AP FINDINGS: Increased lung volume, clear parenchyma, normal cardiac silhouette, and intact bony thorax. IMPRESSION: No acute cardiopulmonary findings.
--- NOTE | 2017-10-01 07:26 | ER Document Report ---
ED Respiratory Problem - General Chief Complaint: Asthma Exacerbation Stated Complaint: DIFFICULTY BREATHING Time Seen by Provider: 10/01/17 05:06 TRAVEL OUTSIDE OF THE [place] IN LAST 30 DAYS: No - HPI Notes: 27-year-old male who presents with complaint of difficulty breathing, tightness in the chest, wheezing, breath sounds. He says for the last 1-2 days he has had worsening difficulty breathing as have been using his inhaler much more frequently. Tonight he went to bed and then woke up with significant distress. He is sweating and working very hard to breathe. He called the ambulance. Paramedics gave him 2 DuoNeb treatments as well as Solu-Medrol. Apparently when they arrived he was in a tripod position. Patient stated the aerosol treatments at the medics gave him has significantly helped he is able to move some air in breathe. He denies any fever chills sore throat. Denies calf pain or leg swelling. Denies any recent hospitalizations or long trips. - Related Data Allergies/Adverse Reactions: peanut [Peanut] Allergy (Intermediate, Verified 10/08/15 09:58) ITCHY THROAT Past Medical History - Social History Smoking Status: Never Smoker Chew tobacco use (# tins/day): No Frequency of alcohol use: None Drug Abuse: Marijuana Family History: COPD Patient has suicidal ideation: No Patient has homicidal ideation: No Pulmonary Medical History: Reports: Hx Asthma, Hx COPD Denies: Hx Tuberculosis Renal/ Medical History: Denies: Hx Peritoneal Dialysis GI Medical History: Reports: Hx Gastroesophageal Reflux Disease Skin Medical History: Reports Hx Eczema, Denies Hx MRSA Psychiatric Medical History: Reports: Hx Depression - Immunizations Hx Diphtheria, Pertussis, Tetanus Vaccination: No Hx Pneumococcal Vaccination: 03/03/13 Review of Systems - Review of Systems Constitutional: denies: Chills, Fever Cardiovascular: denies: Chest pain, Palpitations Respiratory: Short of breath, Wheezing Gastrointestinal: denies: Abdominal pain, Nausea, Vomiting Skin: denies: Rash -: Yes All other systems reviewed and negative Physical Exam - Vital signs Vitals: Pulse Ox 100 10/01/17 05:04 - Notes Notes: GENERAL_APPEARANCE: well_nourished, alert, cooperative, obvious respiratory distress VITALS: reviewed, see vital signs table. HEAD: no_swelling\tenderness on the head. EYES: PERRL, EOMI, conjunctiva_clear. NOSE: no_nasal_discharge. MOUTH: (-)decreased moisture. THROAT: no_throat_inflammation, no_airway_obstruction. no_lymphadenopathy NECK: supple, no_neck_tenderness, (-)thyromegaly. BACK: no_back_tenderness. CHEST_WALL: no_chest_tenderness. LUNGS: Scattered_wheezing, no_rales, no_rhonchi, positive accessory muscle use , there air exchange bilateral. HEART: normal_rate, normal_rhythm, normal_S1, normal_S2, (-)S3, (-)S4, no_ murmur, no_rub. ABDOMEN: soft, no_abd_tenderness, (-)guarding, (-)rebound, no_organomegaly, no_ abd_masses. EXTREMITIES: good pulses in all_extremities, no_swelling\tenderness in the extremities, no_edema. SKIN: warm, dry, good_color, no_rash. MENTAL_STATUS: speech_clear, oriented_X_3, normal_affect, responds_ appropriately to questions. Course - Re-evaluation Re-evalutation: 10/01/17 07:25 27-year-old male presents with acute asthma exacerbation. Patient given aerosol treatment steroids. Chest x-ray suspicion is low for PE. He has improved with treatment. - Vital Signs Vital signs: Temp Pulse Resp BP Pulse Ox 98.0 F 27 H 143/82 H 100 10/01/17 05:10 10/01/17 06:02 10/01/17 06:02 10/01/17 06:02 - Laboratory Result Diagrams: 10/01/17 05:35 10/01/17 05:35 Laboratory results interpreted by me: 10/01/17 10/01/17 05:35 05:35 WBC 10.6 H Lymphocytes % 11.8 L Sodium 146.9 H Chloride 111 H - Diagnostic Test Radiology reviewed: Image reviewed Radiology results interpreted by me: 10/01/17 09:05 Chest X-Ray 10/01/17 06:44 IMPRESSION: No acute cardiopulmonary findings. Discharge - Discharge Clinical Impression: Asthma exacerbation Qualifiers: Asthma severity: moderate Asthma persistence: unspecified Qualified Code(s): J45.901 - Unspecified asthma with (acute) exacerbation Condition: Good Disposition: HOME, SELF-CARE Instructions: Asthma ([facility]), Inhaled Bronchodilators ([facility]) Prescriptions: Albuterol Sulfate [Proair HFA Inhalation Aerosol 8.5 gm MDI] 2 puff IH Q4H PRN # 1 mdi PRN Reason: Prednisone [Deltasone 20 mg Tablet] 3 tab PO DAILY 5 Days tablet
[2017-10-01] MEDS ORDERED: IPRATROPIUM/ALBUTEROL 0.5-2.5 MG/3 ML AMPUL NEB ONE (08:19)
[2017-10-01 09:26] VITALS: BP 131/87
--- NOTE | 2017-10-01 22:07 | EKG REPORT ---
SEVERITY:- NORMAL ECG - SINUS RHYTHM : Confirmed by: Belinda Pitts 01-Oct-2017 22:05:49
== END 2017-10-01 09:40 | disposition home or self-care (01) ==
LOC: ER 04:59
DX: J45.901 Unspecified asthma with (acute) exacerbation (principal); J44.9 Chronic obstructive pulmonary disease, unspecified; F12.10 Cannabis abuse, uncomplicated; R07.89 Other chest pain; R61 Generalized hyperhidrosis; Z91.010 Allergy to peanuts
CPT/HCPCS: 93005; 94640; 99285; 96365; 36415; 85025; 80048; 71045; 93010; J3475

== ENCOUNTER 2017-12-03 22:59 | Inpatient (IN) | payer SELFPAY ==
[2017-12-03] MEDS ORDERED: KETAMINE HCL INJ 500 MG/10 ML VIAL ONE ×2 (23:05→23:23)
[2017-12-03] MEDS ORDERED: EPINEPHRINE INJ/PF 1 MG/1 ML AMPULE ONE (23:23)
[2017-12-03] MEDS ORDERED: IPRATROPIUM/ALBUTEROL 0.5-2.5 MG/3 ML AMPUL NEB ONE (23:23)
[2017-12-03] MEDS ORDERED: MAGNESIUM SULFATE/D5W 1 GM/100 ML RTUPB IV ONE (23:23)
[2017-12-03] MEDS ORDERED: ETOMIDATE INJ/PF 20 MG/10 ML SDV IV ONE (23:23)
[2017-12-03] MEDS ORDERED: PROPOFOL 1,000 MG/100 ML INFUS..BTL IV ONE (23:25)
[2017-12-03] MEDS ORDERED: KETAMINE HCL INJ 500 MG/10 ML VIAL IV ONE (23:25)
[2017-12-03] MEDS ORDERED: PROPOFOL INJ 200 MG/20 ML VIAL IV ONE (23:25)
[2017-12-03 23:26] LABS: ABSOLUTE BASOPHILS # (AUTO) 0.1 10^3/uL (0.0-0.2); ABSOLUTE EOSINOPHILS # (AUTO) 1.4 10^3/uL (0.0-0.6); ABSOLUTE LYMPHOCYTES (AUTO) 3.6 10^3/uL (0.5-4.7); ABSOLUTE MONOCYTES (AUTO) 1.4 10^3/uL (0.1-1.4); ABSOLUTE NEUT (AUTO) 9.3 10^3/uL (1.7-8.2); BASOPHILS % (AUTO) 0.8 % (0-2); EOSINOPHILS % (AUTO) 8.7 % (0-6); HEMATOCRIT 46.9 % (37.9-51.0); LYMPHOCYTES % (AUTO) 22.5 % (13-45); MEAN CORPUSCULAR HEMOGLOBIN 29.6 pg (27.0-33.4); MEAN CORPUSCULAR HGB CONC 34.2 g/dL (32.0-36.0); MEAN CORPUSCULAR VOLUME 87 fl (80-97); MONOCYTES % (AUTO) 8.8 % (3-13); PLATELET COUNT 256 10^3/uL (150-450); RED BLOOD COUNT 5.42 10^6/uL (4.35-5.55); RED CELL DISTRIBUTION WIDTH 13.8 % (11.5-14.0); SEGMENTED NEUTROPHILS % (AUTO) 59.2 % (42-78); TOTAL CELLS COUNTED % (AUTO) 100 %; WHITE BLOOD COUNT 15.8 10^3/uL (4.0-10.5)
[2017-12-03] MEDS ORDERED: MIDAZOLAM HCL 50 MG/100 ML RTUINJ IV PRN (23:26)
[2017-12-03] MEDS ORDERED: ALBUTEROL SULFATE 0.083% NEB 2.5 MG/3 ML AMPUL NEB ONE (23:28)
[2017-12-03 23:32] LABS: INTERNATIONAL RATION (INR) 1.02; PROTHROMBIN TIME 13.9 SEC (11.4-15.4)
[2017-12-03 23:34] LABS: VENOUS BLOOD BASE EXCESS -5.6 mmol/L; VENOUS BLOOD HCO3 27.2 mmol/L (20-32)
[2017-12-03] MEDS ORDERED: KETAMINE HCL INJ 500 MG/10 ML VIAL IV PRN (23:34)
--- NOTE | 2017-12-03 23:38 | ER Document Report ---
ED General - General Chief Complaint: Shortness Of Breath Stated Complaint: BREATHING PROBLEMS Notes: Patient is a 27-year-old male who presents with severe respiratory distress. He is about asthmatic has been intubated several times. He does not see a compliance representative because he cannot afford one. He says he quit smoking about 5 years ago. He has had worsening difficulty breathing for last 2 days that became much worse tonight. He called the ambulance. When the paramedics arrived he was already very diaphoretic and working hard to breathe. They tried CPAP but is not tolerant to CPAP and. They placed him on continuous DuoNeb treatment, gave him Solu-Medrol 125 mg, and started 1 g of magnesium. The also gave him 0.3 mg IM of epinephrine. Patient is only able to speak in 2 word sentences therefore history is very short. He said that he "feels like he is going to ". TRAVEL OUTSIDE OF THE [place] IN LAST 30 DAYS: No - Related Data Allergies/Adverse Reactions: peanut [Peanut] Allergy (Intermediate, Verified 10/08/15 09:58) ITCHY THROAT Past Medical History - Social History Smoking Status: Former Smoker Frequency of alcohol use: None Drug Abuse: None Family History: COPD Pulmonary Medical History: Reports: Hx Asthma, Hx COPD Denies: Hx Tuberculosis Renal/ Medical History: Denies: Hx Peritoneal Dialysis GI Medical History: Reports: Hx Gastroesophageal Reflux Disease Skin Medical History: Reports Hx Eczema, Denies Hx MRSA Psychiatric Medical History: Reports: Hx Depression - Immunizations Hx Diphtheria, Pertussis, Tetanus Vaccination: No Hx Pneumococcal Vaccination: 03/03/13 Review of Systems - Review of Systems Notes: My Normal Review Basic REVIEW OF SYSTEMS: CONSTITUTIONAL : Denies fever, chills, or sweats. Denies recent illness. RESPIRATORY: Severe respiratory distress. Wheezing. GASTROINTESTINAL: Denies abdominal pain. Denies nausea, vomiting, or diarrhea. MUSCULOSKELETAL: Denies neck or back pain or joint pain or swelling. NEUROLOGICAL: Denies altered mental status or loss of consciousness. ALL OTHER SYSTEMS REVIEWED AND NEGATIVE. Physical Exam - Vital signs Vitals: Resp Pulse Ox 34 H 97 12/03/17 23:04 12/03/17 23:04 - Notes Notes: General Appearance: Severe respiratory distress. Patient able speak in 1-2 word sentences. Very diaphoretic and soaked with sweat. Fatigued appearing. Vitals: reviewed, See vital signs table. Head: no swelling or tenderness to the head Eyes: PERRL, EOMI, Conjuctiva clear Mouth: No decreasd moisture Throat: No tonsillar inflammation, No airway obstruction, No lymphadenopathy Neck: Supple, no neck swelling Lungs: Very poor air movement with tight wheezing on expiration. And very poor air intake on inspiration. Heart: Tachycardic rate, Regular rythm, No murmur, no rub Abdomen: Normal BS, soft, No rigidity, No abdominal tenderness, No guarding, no rebound, no abdominal masses, no organomegaly Extremities: good pulses in all extremities no edema. Skin: warm, dry, appropriate color, no rash Neuro: speech clear, oriented x 3, normal affect, responds appropriately to questions. Course - Re-evaluation Re-evalutation: 12/03/17 23:53 Patient came in in severe respiratory distress. Speaking 1-2 word sentences. Is very diaphoretic and sweating. He was already very fatigued. He did not tolerate CPAP on the ambiens. He has had to be intubated several times. He is already at the point where intubation was needed as he was already very fatigued. Patient given 25 mg of ketamine which calmed down some of his anxiety. Patient then intubated. Patient sedated with etomidate and succinylcholine. Patient placed on the ventilator. Patient initially started on propofol drip because his blood pressure was too high to do a ketamine drip. Patient initially, he had no medical allergies. I went back he has peanut allergy which has the possibility of causing allergic reaction. Although I think this possibility is very small the patient is already in a severe asthmatic and bronchospasm medics state and therefore I have stopped the propofol and place him on Versed. Patient started to espinoza against the vent and therefore gave him a dose of rocuronium which only lasted approximately 5 minutes. We will therefore place metabolic drip as the patient is much better ventilated when he is paralyzed. He is now on Versed with ketamine being that his pressure has improved. He still tachycardic. I have placed his ventilator with a quick inspiratory time so he has a prolonged expiratory phase to try to help prevent breath stacking. Currently there is not any breath stacking on a ventilator. I will obtain ABG in 10 minutes to see if these vent settings are improving him. 12/04/17 00:07 Patient's he has clear sounds upon inspiration. He still has wheezing and tightness with expiration but he is able to finish full expiration phase before the ventilator starts inhalation. His oxygen saturation has improved. I have been able to decrease his FiO2 from 60% to 50%. We will continue to slowly decrease his FiO2 as tolerated. He is now on a rocuronium drip and his ventilations are very well controlled. 12/04/17 00:33 Patient continues to improve on the vent. His heart rate is now down to the 130s-150s. His oxygen saturation is 98% with FiO2 of 50%. He is continuing to slowly improve his lung auscultation and having better air movement. 12/04/17 00:59 I called and spoke with Dr. Fish, compliance representative extrusion engineer. He feels comfortable keeping the patient here helping manage the patient here at our hospital. I did go over the vent settings with him. He says to make sure that the vent is on PRBC SIMV as this will help maintain a lower peak airway pressure. I did go back and recheck the vent and is currently on PRVC and his peak airway pressure is now 27. I will call the hospitalist for consideration for admission. 12/04/17 01:05 I called and spoke with the hospitalist, Dr. Pace, who agrees to evaluate the patient for admission. Dictation of this chart was performed using voice recognition software; therefore, there may be some unintended grammatical errors. - Vital Signs Vital signs: Temp Pulse Resp BP Pulse Ox 22 H 170/132 H 91 L 12/03/17 23:21 12/03/17 23:21 12/03/17 23:21 - Laboratory Result Diagrams: 12/03/17 23:10 12/03/17 23:10 Laboratory results interpreted by me: 12/03/17 12/03/17 12/03/17 23:10 23:10 23:10 WBC 15.8 H Eosinophils % 8.7 H Absolute Neutrophils 9.3 H Absolute Eosinophils 1.4 H Carbonic Acid ABG pH ABG pCO2 ABG O2 Saturation VBG pH 7.09 L* VBG pCO2 92.1 H* Chloride 108 H Glucose 159 H Magnesium 3.8 H 12/04/17 00:11 WBC Eosinophils % Absolute Neutrophils Absolute Eosinophils Carbonic Acid 2.07 H ABG pH 7.15 L* ABG pCO2 68.8 H ABG O2 Saturation 93.9 L VBG pH VBG pCO2 Chloride Glucose Magnesium - EKG Interpretation by Me Additional EKG results interpreted by me: 12/03/17 23:37 EKG is reviewed and interpreted by me. EKG shows sinus tachycardia with rate of [address] segment elevation or depression. No ischemic T wave inversions. DC interval, QRS duration, QTc intervals are within normal range. Procedures - Intubation Orotracheal Airway evaluation: Normal anatomy Mallampati Classification: Class 1 Medications: Etomidate, Succinylcholine Intubation method: Orotracheal Blade type: Mila Blade size: 4 ETT size: 7.5 Breath Sounds after Intubation: Equal End tidal CO2 confirmed: Yes Post Intubation Xray: Yes Intubation Complications: No complications Critical Care Note - Critical Care Note Total time excluding time spent on procedures (mins): 45 Comments: Critical care time for this patient not including time spent on procedures approximately 45 minutes due to frequent evaluations, management of the ventilator, management of sedation, management of status asthmaticus. Discharge - Discharge Clinical Impression: Status asthmaticus Qualifiers: Asthma severity: severe Asthma persistence: persistent Qualified Code(s): J45.52 - Severe persistent asthma with status asthmaticus Acute on chronic respiratory failure Qualifiers: Respiratory failure complication: hypoxia and hypercapnia Qualified Code(s): J96.21 - Acute and chronic respiratory failure with hypoxia; J96.22 - Acute and chronic respiratory failure with hypercapnia; J96.22 - Acute and chronic respiratory failure with hypercapnia; J96.22 - Acute and chronic respiratory failure with hypercapnia Condition: Serious Disposition: ADMITTED INPATIENT Admitting Provider: Hospitalist
[2017-12-03 23:39] LABS: VENOUS BLOOD PCO2 92.1 mmHg (35-63); VENOUS BLOOD PH 7.09 (7.30-7.42)
--- NOTE | 2017-12-03 23:43 | RADIOLOGY REPORT (SQ) ---
EXAM DESCRIPTION: XR CHEST 1 VIEW COMPLETED DATE/TME: 12/03/2017 23:17 CLINICAL HISTORY: sob, ett, ng placement COMPARISON: None. FINDINGS: Single view of the chest. Endotracheal tube with tip at the level of the clavicles with tip 6 cm above the gabi. NG tube with tip in the left lower lobe bronchus. The cardiomediastinal silhouette has normal size and contour. No consolidation, pneumothorax, or pleural effusion. No displaced rib fractures identified. Upper abdominal soft tissues are unremarkable. IMPRESSION: 1. NG tube with tip in the left lower lobe bronchus. Repositioning recommended. Urgent finding reported to Dr. Milad Kingston at 12/03/2017 10:36 PM CDT
[2017-12-03 23:45] LABS: ALANINE AMINOTRANSFERASE 31 U/L (21-72); ALBUMIN 4.7 g/dL (3.5-5.0); ALKALINE PHOSPHATASE 108 U/L (38-126); ANION GAP 11 (5-19); ASPARTATE AMINO TRANSFERASE 29 U/L (17-59); BILIRUBIN,DIRECT 0.3 mg/dL (0.0-0.4); BILIRUBIN,TOTAL 0.8 mg/dL (0.2-1.3); BLOOD UREA NITROGEN 8 mg/dL (7-20); CALCIUM 9.4 mg/dL (8.4-10.2); CARBON DIOXIDE 25 mmol/L (22-30); CHLORIDE 108 mmol/L (98-107); GLUCOSE 159 mg/dL (75-110); POTASSIUM 4.9 mmol/L (3.6-5.0); SODIUM 143.8 mmol/L (137-145); TOTAL PROTEIN 7.8 g/dL (6.3-8.2)
[2017-12-04] MEDS ORDERED: ROCURONIUM BROMIDE INJ 50 MG/5 ML VIAL IV ONE ×2 (00:27→10:45)
[2017-12-04 00:31] LABS: ARTERIAL BLOOD BASE EXCESS -7.1 mmol/L; ARTERIAL BLOOD H2CO3 2.07 mmol/L (1.05-1.35); ARTERIAL BLOOD HCO3 23.4 mmol/L (20-24); ARTERIAL BLOOD O2 SATURATION 93.9 % (94-98); ARTERIAL BLOOD PCO2 68.8 mmHg (35-45); ARTERIAL BLOOD PO2 89.4 mmHg (80-100); ARTERIAL BLOOD TOTAL CO2 25.5 mmol/L (23-27)
[2017-12-04 00:33] LABS: ARTERIAL BLOOD FIO2 100%
[2017-12-04 00:34] LABS: ARTERIAL BLOOD PH 7.15 (7.35-7.45)
--- NOTE | 2017-12-04 00:41 | RADIOLOGY REPORT (SQ) ---
EXAM DESCRIPTION: XR CHEST 1 VIEW COMPLETED DATE/TME: 12/04/2017 00:22 CLINICAL HISTORY: repositioned NG COMPARISON: December 03, 2017 FINDINGS: Image of the lower chest/upper abdomen was submitted for evaluation of an NG tube. NG tube ends at the level of the stomach. EKG leads project over the chest. IMPRESSION: The NG tube ends at the level of the stomach. Due to previous location of the NG tube at the level of the left airway follow-up image of the chest is recommended.
[2017-12-04] MEDS ORDERED: NORMAL SALINE 500 ML with ROCURONIUM BROMIDE 500 MG IV PRN ×2 (01:06)
--- NOTE | 2017-12-04 01:25 | RADIOLOGY REPORT (SQ) ---
EXAM DESCRIPTION: XR CHEST 1 VIEW COMPLETED DATE/TME: 12/04/2017 00:00 CLINICAL HISTORY: Repositioning NG tube. COMPARISON: 12/04/2017 FINDINGS: Single frontal view of the chest. Endotracheal tube with tip 6 cm above the gabi. NG tube with tip proceeding below the diaphragm. No consolidation, pneumothorax, or pleural effusion. No displaced rib fractures identified. Upper abdominal soft tissues are unremarkable. IMPRESSION: 1. No acute pulmonary process identified. Visualized tubes and lines in appropriate position.
[2017-12-04] MEDS ORDERED: ALBUTEROL SULFATE 0.083% NEB 2.5 MG/3 ML AMPUL NEB ONE (02:09)
[2017-12-04 02:41] LABS: APPEARANCE,URINE SLIGHTLY-CLOUDY; BILIRUBIN,URINE NEGATIVE (NEGATIVE); COLOR,URINE YELLOW; GLUCOSE, URINE NEGATIVE (NEGATIVE); KETONES,URINE NEGATIVE (NEGATIVE); LEUKOCYTE ESTERASE,URINE NEGATIVE (NEGATIVE); NITRITE,URINE NEGATIVE (NEGATIVE); PROTEIN,URINE NEGATIVE (NEGATIVE); URINE SPECIFIC GRAVITY 1.019; UROBILINOGEN,URINE NEGATIVE mg/dL (<2.0)
[2017-12-04] MEDS: LEVALBUTEROL HCL NEB 1.25 MG/3 ML AMPUL NEB SCH ×3 (02:42→08:17)
[2017-12-04 03:00] LABS: URINE AMPHETAMINES SCREEN NEGATIVE; URINE BARBITURATES SCREEN NEGATIVE; URINE BENZODIAZEPINES SCREEN UNCONFIRMED POSITIVE; URINE COCAINE SCREEN NEGATIVE; URINE MARIJUANA (THC) SCREEN UNCONFIRMED POSITIVE; URINE METHADONE SCREEN NEGATIVE; URINE PHENCYCLIDINE SCREEN NEGATIVE
[2017-12-04] MEDS ORDERED: KETAMINE HCL 500 MG in NORMAL SALINE 500 ML IV PRN ×2 (05:36→06:00)
[2017-12-04] MEDS: MIDAZOLAM HCL 50 MG/100 ML RTUINJ IV PRN ×6 (05:54→21:05)
[2017-12-04 06:12] LABS: ARTERIAL BLOOD BASE EXCESS -5.7 mmol/L; ARTERIAL BLOOD FIO2 50%; ARTERIAL BLOOD H2CO3 1.63 mmol/L (1.05-1.35); ARTERIAL BLOOD HCO3 22.5 mmol/L (20-24); ARTERIAL BLOOD O2 SATURATION 95.4 % (94-98); ARTERIAL BLOOD PCO2 54.3 mmHg (35-45); ARTERIAL BLOOD PH 7.24 (7.35-7.45); ARTERIAL BLOOD PO2 91.2 mmHg (80-100); ARTERIAL BLOOD TOTAL CO2 24.2 mmol/L (23-27)
--- NOTE | 2017-12-04 07:14 | PDOC H&P ---
History of Present Illness Admission Date/PCP: 12/04/17 01:21 Patient complains of: acute respiratory failure History of Present Illness: NIGEL RAMOS is a 27 year old male presented to the emergency room secondary to acute distress distress. Patient has a known past medical history of poorly controlled asthma with history of hospitalization and intubation in past. Presented to the emergency department with complaint of worsening shortness of breath and difficulty breathing for the past 2 days that became significantly worsened overnight. Patient himself called EMS. Upon arrival to the emergency department patient was found to be diaphoretic with increased work of breathing. Patient was significantly tachypneic upon arrival to emergency department at which point decision was made by the ED physician to intubate patient. Patient is intubated, sedated. According to ER physician, patient is unable to afford pulmonary care. Past Medical History Pulmonary Medical History: Reports: Asthma, Chronic Obstructive Pulmonary Disease (COPD) Denies: Tuberculosis GI Medical History: Reports: Gastroesophageal Reflux Disease Skin Medical History: Reports: Eczema Psychiatric Medical History: Reports: Depression Past Surgical History Past Surgical History: Reports: None Social History Smoking Status: Former Smoker Frequency of Alcohol Use: None Hx Recreational Drug Use: No Drugs: Marijuana Hx Prescription Drug Abuse: No - Advance Directive Resuscitation Status: Full Code Family History Family History: COPD Parental Family History Reviewed: No Children Family History Reviewed: No Sibling(s) Family History Reviewed.: No Medication/Allergy Home Medications: Albuterol Sulfate [Proair HFA] 1 puff IH Q4HP PRN 04/04/17 Fluticasone/Salmeterol [Advair 250-50 Diskus 28 dose] 1 puff IH Q12 04/04/17 Multivitamin [Multiple Vitamins] 1 tab PO DAILY 04/04/17 Montelukast Sodium [Singulair] 10 mg PO QHS 30 Days #30 tablet 04/06/17 Prednisone [Deltasone 20 mg Tablet] 60 mg PO DAILY 4 Days #12 tablet 04/06/17 Albuterol Sulfate [Proair HFA Inhalation Aerosol 8.5 gm MDI] 2 puff IH Q4H PRN # 1 mdi 10/01/17 Prednisone [Deltasone 20 mg Tablet] 3 tab PO DAILY 5 Days tablet 10/01/17 Allergies/Adverse Reactions: peanut [Peanut] Allergy (Intermediate, Verified 10/08/15 09:58) ITCHY THROAT Review of Systems ROS unobtainable: Due to endotracheal tube Physical Exam Vital Signs: Temp Pulse Resp BP Pulse Ox 98.4 F 123 H 16 133/79 H 95 12/04/17 06:35 12/04/17 04:43 12/04/17 06:35 12/04/17 06:35 12/04/17 06:35 Intake & Output 12/03/17 12/04/17 12/05/17 06:59 06:59 06:59 Intake Total 45 Output Total 490 Balance -445 Weight 88.1 kg General appearance: PRESENT: mild distress Head exam: PRESENT: atraumatic, normocephalic Eye exam: PRESENT: conjunctiva pink, EOMI, PERRLA. ABSENT: scleral icterus Respiratory exam: PRESENT: prolonged expiratory phas, tachypnea, wheezes Cardiovascular exam: PRESENT: tachycardia. ABSENT: diastolic murmur, irregular rhythm, systolic murmur GI/Abdominal exam: PRESENT: normal bowel sounds, soft. ABSENT: distended, guarding, mass, organolmegaly, rebound, tenderness Neurological exam: PRESENT: other - intubated, sedated Results Laboratory Results: 12/04/17 12/04/17 02:15 06:00 Carbonic Acid 1.63 H HCO3/H2CO3 Ratio 13:1 ABG pH 7.24 L ABG pCO2 54.3 H ABG pO2 91.2 ABG HCO3 22.5 ABG O2 Saturation 95.4 ABG Base Excess -5.7 FiO2 50% Urine Color YELLOW Urine Appearance SLIGHTLY-CLOUDY Urine pH 5.0 Ur Specific [place] 1.019 Urine Protein NEGATIVE Urine Glucose (UA) NEGATIVE Urine Ketones NEGATIVE Urine Blood NEGATIVE Urine Nitrite NEGATIVE Ur Leukocyte Esterase NEGATIVE Urine WBC (Auto) 1 Urine RBC (Auto) 1 Impressions: Chest X-Ray 12/04/17 00:03 IMPRESSION: The NG tube ends at the level of the stomach. Due to previous location of the NG tube at the level of the left airway follow-up image of the chest is recommended. Assessment & Plan - Diagnosis (1) Acute on chronic respiratory failure Qualifiers: Respiratory failure complication: hypoxia and hypercapnia Qualified Code(s) : J96.21 - Acute and chronic respiratory failure with hypoxia; J96.22 - Acute and chronic respiratory failure with hypercapnia; J96.22 - Acute and chronic respiratory failure with hypercapnia; J96.22 - Acute and chronic respiratory failure with hypercapnia Is this a current diagnosis for this admission?: Yes (2) Status asthmaticus Qualifiers: Asthma severity: severe Asthma persistence: persistent Qualified Code(s) : J45.52 - Severe persistent asthma with status asthmaticus Is this a current diagnosis for this admission?: Yes - Time Critical Time spent with patient: 15-24 minutes Medications reviewed and adjusted accordingly: Yes Anticipated discharge: Home - Inpatient Certification Medical Necessity: Need Close Monitoring Due to Risk of Patient Decompensation - Plan Summary Plan Summary: Patient to be admitted to the intensive care unit, currently intubated/sedated. Patient family is very well-known to this service for multiple episodes of very similar presentation resulting in intubation as well. Apparently patient does not have a physiotherapy practice manager because he cannot afford one. Pulmonology consultation pending this a.m. PRVC vent settings, respiratory therapy to manage. Wean sedation as tolerated. Scheduled breathing treatments. Strict I' s and O's. Repeat CBC, BMP this a.m. We will continue to monitor closely and adjust accordingly.
[2017-12-04] MEDS ORDERED: DEXTROSE 5%-LACTATED RINGERS 1,000 ML IV PRN (08:22)
[2017-12-04] MEDS ORDERED: KETAMINE HCL INJ 500 MG/10 ML VIAL IV PRN (08:25)
[2017-12-04] MEDS ORDERED: BUDESONIDE NEB 0.5 MG/2 ML AMPUL NEB SCH (09:00)
[2017-12-04] MEDS ORDERED: IPRATROPIUM BROMIDE 0.02% NEB 0.5 MG/2.5 ML AMPUL NEB SCH (09:00)
--- NOTE | 2017-12-04 09:09 | EKG REPORT ---
SEVERITY:- OTHERWISE NORMAL ECG - SINUS TACHYCARDIA BORDERLINE RIGHT AXIS DEVIATION : Confirmed by: Belinda Pitts 04-Dec-2017 09:08:33
[2017-12-04] MEDS ORDERED: METHYLPREDNISOLONE INJ 125 MG/2 ML SDV IV ONE (09:10)
[2017-12-04] MEDS: FAMOTIDINE INJ/PF 20 MG/2 ML SDV IV SCH ×2 (10:28→21:05)
[2017-12-04] MEDS: ENOXAPARIN SODIUM INJ 40 MG/0.4 ML DISP.SYRIN SUBCUT SCH (10:29)
[2017-12-04] MEDS: BUDESONIDE NEB 0.5 MG/2 ML AMPUL NEB SCH ×2 (10:41→20:36)
[2017-12-04] MEDS ORDERED: SUCCINYLCHOLINE CHLORIDE INJ 200 MG/10 ML VIAL ONE (10:45)
[2017-12-04 11:09] LABS: ARTERIAL BLOOD BASE EXCESS -5.3 mmol/L; ARTERIAL BLOOD H2CO3 1.95 mmol/L (1.05-1.35); ARTERIAL BLOOD HCO3 24.3 mmol/L (20-24); ARTERIAL BLOOD O2 SATURATION 92.6 % (94-98); ARTERIAL BLOOD PCO2 64.7 mmHg (35-45); ARTERIAL BLOOD PO2 79.6 mmHg (80-100); ARTERIAL BLOOD TOTAL CO2 26.3 mmol/L (23-27)
[2017-12-04 11:11] LABS: ARTERIAL BLOOD FIO2 40%
[2017-12-04 11:12] LABS: ARTERIAL BLOOD PH 7.19 (7.35-7.45)
--- NOTE | 2017-12-04 11:31 | PDOC PROGRESS REPORT ---
Subjective Progress Note for:: 12/04/17 Subjective:: NIGEL AKERS is a 27 year old male who presented to the emergency room with a 2-day history of progressively worsening dyspnea with wheezing. He has a known past medical history of poorly controlled asthma requiring hospitalization and intubation in past. He admitted that his dyspnea had worsened over the 12 hours prior to his presentation to the point where it had become extremely severe and he called for the ambulance himself. Upon arrival to the emergency department he was found to be diaphoretic with increased work of breathing and severely tachypneic which resulted in his intubation by the ED physician. 12/04/17: Mr. Akers is seen today in the ICU. He is currently sedated and intubated on a ventilator for respiratory support. His records have been reviewed and his medications and treatments have been noted. Pulmonology is consulting and performing ventilator management. He is stable and somewhat improved on the ventilator today. Bolus doses of IV Solu-Medrol with an initial dose of 125 mg followed by 40 mg every 8 hours are ordered. An aggressive pulmonary toilet was ordered by the roll out manager. Reason For Visit: ACUTE RESPIRATORY DISTRESS Physical Exam Vital Signs: Temp Pulse Resp BP Pulse Ox 97.7 F 131 H 20 164/97 H 97 12/04/17 10:35 12/04/17 08:17 12/04/17 10:35 12/04/17 10:35 12/04/17 10:35 Intake & Output 12/03/17 12/04/17 12/05/17 06:59 06:59 06:59 Intake Total 45 209 Output Total 490 755 Balance -445 -546 Weight 88.1 kg General appearance: PRESENT: other - Intubated and on the ventilator Head exam: PRESENT: atraumatic, normocephalic Eye exam: PRESENT: conjunctiva pink. ABSENT: conjunctival injection, periorbital swelling, scleral icterus Ear exam: PRESENT: normal external ear exam. ABSENT: bleeding, drainage Mouth exam: PRESENT: dry mucosa, tongue midline, other - Endotracheal tube in good position Neck exam: ABSENT: thyromegaly, tracheal deviation Respiratory exam: PRESENT: symmetrical, other - Intubated and on ventilatory support. ABSENT: decreased breath sounds Cardiovascular exam: PRESENT: RRR, tachycardia. ABSENT: clicks, diastolic murmur, gallop, rubs, systolic murmur Vascular exam: PRESENT: normal capillary refill. ABSENT: pallor GI/Abdominal exam: PRESENT: normal bowel sounds, soft Rectal exam: PRESENT: deferred Extremities exam: ABSENT: joint swelling, pedal edema Musculoskeletal exam: ABSENT: ambulatory, deformity, dislocation Neurological exam: PRESENT: altered - Sedated for intubation and ventilatory support, CN II-XII grossly intact. ABSENT: motor sensory deficit Psychiatric exam: PRESENT: other - Sedated and intubated preventing evaluation Skin exam: PRESENT: other - Multiple IV injection sites are noted in the bilateral antecubital spaces and surrounding areas. ABSENT: jaundice, rash, urticaria Results Laboratory Results: 12/04/17 12/04/17 02:15 06:00 Carbonic Acid 1.63 H HCO3/H2CO3 Ratio 13:1 ABG pH 7.24 L ABG pCO2 54.3 H ABG pO2 91.2 ABG HCO3 22.5 ABG O2 Saturation 95.4 ABG Base Excess -5.7 FiO2 50% Urine Color YELLOW Urine Appearance SLIGHTLY-CLOUDY Urine pH 5.0 Ur Specific [place] 1.019 Urine Protein NEGATIVE Urine Glucose (UA) NEGATIVE Urine Ketones NEGATIVE Urine Blood NEGATIVE Urine Nitrite NEGATIVE Ur Leukocyte Esterase NEGATIVE Urine WBC (Auto) 1 Urine RBC (Auto) 1 EKG Comments: Sinus tachycardia is noted Right axis deviation Impressions: Chest X-Ray 12/04/17 00:03 IMPRESSION: The NG tube ends at the level of the stomach. Due to previous location of the NG tube at the level of the left airway follow-up image of the chest is recommended. Assessment & Plan - Diagnosis (1) Status asthmaticus Qualifiers: Asthma severity: severe Asthma persistence: persistent Qualified Code(s) : J45.52 - Severe persistent asthma with status asthmaticus Is this a current diagnosis for this admission?: Yes Plan: Patient will be maintained on ventilatory support via endotracheal intubation until such time as he can be weaned from support at the direction of the pulmonary environmental remediation consultant. He will in the meantime be treated with a very aggressive pulmonary toilet utilizing DuoNeb every 6 hours and budesonide every 12 hours and will additionally be given intravenous steroids with Solu-Medrol 125 mg IV stat followed by 40 mg IV every 8 hours until discontinued. IV fluid support maintenance will be continued until he is able to be awake and alert and eat and drink without respiratory difficulty. (2) Acute hypercapnic respiratory failure Is this a current diagnosis for this admission?: Yes Plan: Patient has been intubated and is on ventilatory support which will be managed by pulmonology. - Time Time Spent with patient: 35 or more minutes Anticipated discharge: Home
[2017-12-04] MEDS ORDERED: LEVALBUTEROL HCL NEB 1.25 MG/3 ML AMPUL NEB SCH (12:00)
[2017-12-04 13:18] LABS: ARTERIAL BLOOD BASE EXCESS -5.6 mmol/L; ARTERIAL BLOOD H2CO3 1.42 mmol/L (1.05-1.35); ARTERIAL BLOOD HCO3 21.4 mmol/L (20-24); ARTERIAL BLOOD O2 SATURATION 95.7 % (94-98); ARTERIAL BLOOD PCO2 47.2 mmHg (35-45); ARTERIAL BLOOD PH 7.27 (7.35-7.45); ARTERIAL BLOOD PO2 89.2 mmHg (80-100); ARTERIAL BLOOD TOTAL CO2 22.8 mmol/L (23-27)
[2017-12-04 13:21] LABS: ARTERIAL BLOOD FIO2 40%
[2017-12-04] MEDS: IPRATROPIUM/ALBUTEROL 0.5-2.5 MG/3 ML AMPUL NEB SCH ×2 (13:36→20:36)
[2017-12-04] MEDS: METHYLPREDNISOLONE INJ 40 MG/1 ML SDV IV SCH ×2 (14:32→21:05)
--- NOTE | 2017-12-04 14:33 | PDOC CONSULTATION ---
Consultation Consult Date: 12/04/17 Attending physician:: LINDA BERMUDEZ Consult reason:: status asthmaticus History of Present Illness Admission Date/PCP: 12/04/17 01:21 History of Present Illness: NIGEL RAMOS is a 27 year old male with known history of asthma presented the emergency room with increasing shortness of breath and combative he was subsequently intubated and sedated and started on intensive asthmatic therapy he is currently in ICU intubated and sedated Minimal endotracheal aspirate is is being reported thus far FiO2 requirements but his airway pressures appear to be normal at this time Past Medical History Pulmonary Medical History: Reports: Asthma, Chronic Obstructive Pulmonary Disease (COPD) Denies: Tuberculosis GI Medical History: Reports: Gastroesophageal Reflux Disease Skin Medical History: Reports: Eczema Psychiatric Medical History: Reports: Depression Past Surgical History Past Surgical History: Reports: None Social History Information Source: [facility] Records Smoking Status: Former Smoker Frequency of Alcohol Use: None Hx Recreational Drug Use: No Drugs: Marijuana Hx Prescription Drug Abuse: No - Advance Directive Resuscitation Status: Full Code Family History Family History: COPD Parental Family History Reviewed: No Children Family History Reviewed: No Sibling(s) Family History Reviewed.: No Medication/Allergy Home Medications: Albuterol Sulfate [Proair HFA Inhalation Aerosol 8.5 gm MDI] 2 puff IH Q4HP PRN 12/04/17 Cetirizine HCl [Zyrtec 10 mg Tablet] 10 mg PO DAILY 12/04/17 Fluticasone Propionate [Flonase Nasal [place] 50 Mcg/[place] 16 gm] 2 spray NASL DAILY 12/04/17 Allergies/Adverse Reactions: peanut [Peanut] Allergy (Intermediate, Verified 10/08/15 09:58) ITCHY THROAT Review of Systems ROS unobtainable: Due to endotracheal tube Physical Exam Vital Signs: Temp Pulse Resp BP Pulse Ox 98.2 F 123 H 16 133/79 H 95 12/04/17 07:51 12/04/17 04:43 12/04/17 06:35 12/04/17 06:35 12/04/17 06:35 Intake & Output 12/03/17 12/04/17 12/05/17 06:59 06:59 06:59 Intake Total 45 Output Total 490 35 Balance -445 -35 Weight 88.1 kg General appearance: PRESENT: no acute distress, disheveled, well-developed, well -nourished. ABSENT: cooperative Head exam: PRESENT: atraumatic, normocephalic Eye exam: PRESENT: conjunctiva pale, EOMI. ABSENT: nystagmus, scleral icterus Mouth exam: PRESENT: dry mucosa, neck supple, tongue midline, other - ET tube in place Neck exam: ABSENT: carotid bruit, JVD, lymphadenopathy, thyromegaly, tracheal deviation, tracheostomy Respiratory exam: PRESENT: decreased breath sounds, prolonged expiratory phas, rhonchi, stridor, tachypnea, unlabored, wheezes. ABSENT: rales, retraction Cardiovascular exam: PRESENT: RRR, +S1, +S2 Pulses: PRESENT: normal radial pulses GI/Abdominal exam: PRESENT: soft. ABSENT: tenderness Gentrourinary exam: PRESENT: indwelling catheter Extremities exam: ABSENT: calf tenderness, clubbing, joint swelling Musculoskeletal exam: ABSENT: ambulatory, deformity, dislocation Neurological exam: ABSENT: awake Skin exam: PRESENT: dry, warm Results Laboratory Results: 12/04/17 12/04/17 02:15 06:00 Carbonic Acid 1.63 H HCO3/H2CO3 Ratio 13:1 ABG pH 7.24 L ABG pCO2 54.3 H ABG pO2 91.2 ABG HCO3 22.5 ABG O2 Saturation 95.4 ABG Base Excess -5.7 FiO2 50% Urine Color YELLOW Urine Appearance SLIGHTLY-CLOUDY Urine pH 5.0 Ur Specific [place] 1.019 Urine Protein NEGATIVE Urine Glucose (UA) NEGATIVE Urine Ketones NEGATIVE Urine Blood NEGATIVE Urine Nitrite NEGATIVE Ur Leukocyte Esterase NEGATIVE Urine WBC (Auto) 1 Urine RBC (Auto) 1 Impressions: Chest X-Ray 12/04/17 00:03 IMPRESSION: The NG tube ends at the level of the stomach. Due to previous location of the NG tube at the level of the left airway follow-up image of the chest is recommended. Assessment & Plan - Diagnosis (1) Status asthmaticus Qualifiers: Asthma severity: severe Asthma persistence: persistent Qualified Code(s) : J45.52 - Severe persistent asthma with status asthmaticus Is this a current diagnosis for this admission?: Yes Plan: Generic Name Dose Route Start Last Admin Trade Name Freq PRN Reason Stop Dose Admin Methylprednisolone Sodium Succinate 40 mg 12/04/17 14:00 Solu-Medrol Inj/Pf 40 Mg/1 Ml Sdv IV 01/03/18 13:59 Q8 PATY Albuterol/Ipratropium 3 ml 12/04/17 14:00 12/04/17 13:36 Duoneb 3 Ml Ampul NEB 01/03/18 13:59 3 ml RTQ6 [facility] Famotidine 20 mg 12/04/17 10:00 12/04/17 10:28 Pepcid Inj/Pf 20 Mg/2 Ml Sdv IV 01/03/18 09:59 20 mg Q12 PATY Suggest adding inhaled corticosteroid Pulmicort 0.5 (2) Acute hypercapnic respiratory failure Is this a current diagnosis for this admission?: Yes Plan: We will increase tidal volume and respiratory rate hopefully increase in minute ventilation will blow off extra CO2 and improve the pH - Time Total Critical Time (Minutes): 55
[2017-12-04] MEDS: POTASSI CL 20 MEQ/D5-1/2NS 1L 1000 ML IV PRN ×2 (15:19→21:05)
[2017-12-04] MEDS: NORMAL SALINE 500 ML with ROCURONIUM BROMIDE 500 MG IV PRN ×2 (15:55)
[2017-12-05] MEDS ORDERED: VANCOMYCIN HCL INJ 1000 MG VIAL IV PRN (00:35)
[2017-12-05] MEDS ORDERED: [UNRECOGNIZED DRUG - REMARK] MC PRN (00:37)
[2017-12-05] MEDS: IPRATROPIUM/ALBUTEROL 0.5-2.5 MG/3 ML AMPUL NEB PRN ×2 (00:45→04:31)
[2017-12-05] MEDS ORDERED: VANCOMYCIN HCL 1,250 MG in DEXTROSE 5%-WATER 250 ML IV ONE (01:00)
[2017-12-05] MEDS: KETAMINE HCL INJ 500 MG/10 ML VIAL IV PRN (01:01)
[2017-12-05] MEDS: IPRATROPIUM/ALBUTEROL 0.5-2.5 MG/3 ML AMPUL NEB SCH ×4 (01:57→19:40)
[2017-12-05] MEDS ORDERED: VANCOMYCIN HCL INJ 1000 MG VIAL ONE (02:12)
[2017-12-05] MEDS ORDERED: VANCOMYCIN HCL INJ 500 MG VIAL ONE (02:12)
[2017-12-05] MEDS: MIDAZOLAM HCL 50 MG/100 ML RTUINJ IV PRN ×8 (02:47→22:35)
[2017-12-05] MEDS: NORMAL SALINE 500 ML with ROCURONIUM BROMIDE 500 MG IV PRN ×4 (02:50→16:27)
[2017-12-05] MEDS: POTASSI CL 20 MEQ/D5-1/2NS 1L 1000 ML IV PRN ×3 (02:51→19:45)
[2017-12-05 04:17] LABS: HEMATOCRIT 40.3 % (37.9-51.0); MEAN CORPUSCULAR HEMOGLOBIN 29.6 pg (27.0-33.4); MEAN CORPUSCULAR HGB CONC 33.9 g/dL (32.0-36.0); MEAN CORPUSCULAR VOLUME 87 fl (80-97); PLATELET COUNT 176 10^3/uL (150-450); RED BLOOD COUNT 4.62 10^6/uL (4.35-5.55); RED CELL DISTRIBUTION WIDTH 14.3 % (11.5-14.0); WHITE BLOOD COUNT 17.2 10^3/uL (4.0-10.5)
[2017-12-05 04:22] LABS: ALANINE AMINOTRANSFERASE 29 U/L (21-72); ALBUMIN 3.5 g/dL (3.5-5.0); ALKALINE PHOSPHATASE 74 U/L (38-126); ANION GAP 11 (5-19); ASPARTATE AMINO TRANSFERASE 15 U/L (17-59); BILIRUBIN,DIRECT 0.2 mg/dL (0.0-0.4); BILIRUBIN,TOTAL 0.4 mg/dL (0.2-1.3); BLOOD UREA NITROGEN 11 mg/dL (7-20); CALCIUM 8.8 mg/dL (8.4-10.2); CARBON DIOXIDE 22 mmol/L (22-30); CHLORIDE 112 mmol/L (98-107); GLUCOSE 146 mg/dL (75-110); HEMOGLOBIN 13.7 g/dL (13.5-17.0); PHOSPHORUS 3.2 mg/dL (2.5-4.5); POTASSIUM 4.8 mmol/L (3.6-5.0); SODIUM 144.8 mmol/L (137-145); TOTAL PROTEIN 5.9 g/dL (6.3-8.2)
[2017-12-05 04:41] LABS: ABSOLUTE MONOCYTES # (MANUAL) 0.3 10^3/uL (0.1-1.4); ABSOLUTE NEUTROPHILS# (MANUAL) 15.8 10^3/uL (1.7-8.2); BASOPHILS % (MANUAL) 0 % (0-2); EOSINOPHILS % (MANUAL) 0 % (0-6); LYMPHOCYTES % (MANUAL) 5 % (13-45); MONOCYTES % (MANUAL) 2 % (3-13); SEGMENTED NEUTROPHILS % (MAN) 92 % (42-78); TOTAL CELLS COUNTED 100
[2017-12-05 04:42] LABS: PLATELET COMMENT ADEQUATE; RBC MORPHOLOGY COMMENT NORMO-CYTIC/CHROMIC
[2017-12-05] MEDS: METHYLPREDNISOLONE INJ 40 MG/1 ML SDV IV SCH ×3 (06:05→17:20)
[2017-12-05 06:22] LABS: ARTERIAL BLOOD BASE EXCESS -2.7 mmol/L; ARTERIAL BLOOD H2CO3 1.47 mmol/L (1.05-1.35); ARTERIAL BLOOD O2 SATURATION 95.8 % (94-98); ARTERIAL BLOOD PH 7.31 (7.35-7.45); ARTERIAL BLOOD PO2 87.7 mmHg (80-100); ARTERIAL BLOOD TOTAL CO2 25.5 mmol/L (23-27)
[2017-12-05 06:26] LABS: ARTERIAL BLOOD FIO2 40%
--- NOTE | 2017-12-05 06:28 | RADIOLOGY REPORT (SQ) ---
EXAM DESCRIPTION: X-ray single view chest. CLINICAL HISTORY: 27 years Male, resp failure COMPARISON: 12/04/2017. TECHNIQUE: Single portable view of the chest performed on 12/05/2017 at 6:15 AM FINDINGS: The lungs are well expanded and are clear. There is no evidence of a pneumothorax. The cardiac silhouette is normal in size and configuration. The mediastinal contours are normal. No acute osseous abnormality is identified. No focal soft tissue abnormalities are seen. Lines and tubes: The tip of the endotracheal tube terminates just below the clavicular heads. The feeding tube extends below the diaphragm and the tip overlies the region of the stomach. IMPRESSION: No evidence of acute intrathoracic disease. The life support lines and tubes are grossly stable in position.
[2017-12-05] MEDS ORDERED: FENTANYL CITRATE INJ/PF 100 MCG/2 ML AMPUL IV ONE ×2 (07:30→17:15)
[2017-12-05] MEDS: BUDESONIDE NEB 0.5 MG/2 ML AMPUL NEB SCH ×2 (08:03→19:40)
[2017-12-05] MEDS: FAMOTIDINE INJ/PF 20 MG/2 ML SDV IV SCH ×2 (09:19→22:34)
[2017-12-05] MEDS: ENOXAPARIN SODIUM INJ 40 MG/0.4 ML DISP.SYRIN SUBCUT SCH (09:19)
[2017-12-05] MEDS ORDERED: NORMAL SALINE 1000 ML 1,000 ML IV ONE (10:00)
--- NOTE | 2017-12-05 10:16 | EKG REPORT ---
SEVERITY:- ABNORMAL ECG - SINUS TACHYCARDIA BORDERLINE RIGHT AXIS DEVIATION BORDERLINE Q WAVES IN INFERIOR LEADS INFERIOR Q WAVES, PROBABLY NORMAL VARIATION : Confirmed by: Belinda Pitts 05-Dec-2017 10:14:26
[2017-12-05] MEDS: MONTELUKAST SODIUM 10 MG TABLET GT SCH (10:17)
[2017-12-05] MEDS: DOCUSATE SODIUM 100 MG/10 ML UDC PO SCH (10:17)
[2017-12-05] MEDS: VANCOMYCIN HCL 1,500 MG in DEXTROSE 5%-WATER 250 ML IV SCH ×2 (10:19→17:20)
--- NOTE | 2017-12-05 16:11 | PDOC PROGRESS REPORT ---
Subjective Progress Note for:: 12/05/17 Subjective:: NIGEL AKERS is a 27 year old male who presented to the emergency room with a 2-day history of progressively worsening dyspnea with wheezing. He has a known past medical history of poorly controlled asthma requiring hospitalization and intubation in past. He admitted that his dyspnea had worsened over the 12 hours prior to his presentation to the point where it had become extremely severe and he called for the ambulance himself. Upon arrival to the emergency department he was found to be diaphoretic with increased work of breathing and severely tachypneic which resulted in his intubation by the ED physician. 12/04/17: Mr. Akers is seen today in the ICU. He is currently sedated and intubated on a ventilator for respiratory support. His records have been reviewed and his medications and treatments have been noted. Pulmonology is consulting and performing ventilator management. He is stable and somewhat improved on the ventilator today. Bolus doses of IV Solu-Medrol with an initial dose of 125 mg followed by 40 mg every 8 hours are ordered. An aggressive pulmonary toilet was ordered by the supervisor production managing. 12/05/17: Mr. Akers is again seen in the ICU intubated and on a ventilator with respiratory support. His blood gases were improved today and he has been able to tolerate a decrease in his FiO2 down to 35%. He has been able to maintain a good oxygen saturation following this change. Pulmonology has also changed some of his paralytics and sedatives as well as analgesics to help to alleviate the rather chronic hypotension and tachycardia. He has been receiving large fluid volume and his urine output has improved since his Pedro catheter which was apparently obstructed with urinary sediment was changed. His examination today shows a significant improvement in air movement throughout his chest and this has resulted in increased wheezing specifically because the air movement is substantially improved there is a significant prolongation of his expiratory phase and this will hopefully correct as his IV steroids are continued. As his bronchoconstriction is reduced he will be more able to be taken off of ventilatory support. IV fluids will be continued at 167 mL/h and daily laboratory evaluations will be continued. Reason For Visit: ACUTE RESPIRATORY DISTRESS Physical Exam Vital Signs: Temp Pulse Resp BP Pulse Ox 97.3 F 107 H 0 L 114/64 93 12/05/17 14:00 12/05/17 13:38 12/05/17 14:00 12/05/17 13:51 12/05/17 15:37 Intake & Output 12/03/17 12/04/17 12/05/17 23:59 23:59 23:59 Intake Total 3309 4917 Output Total 1759 9509 Balance 1554 2992 Weight 88.1 kg 87.5 kg General appearance: PRESENT: well-developed, well-nourished, other - Intubated and on ventilatory support Head exam: PRESENT: atraumatic, normocephalic Eye exam: ABSENT: conjunctival injection, periorbital swelling, scleral icterus Ear exam: PRESENT: normal external ear exam. ABSENT: bleeding, drainage Mouth exam: PRESENT: tongue midline, other - ET tube in good position Neck exam: ABSENT: thyromegaly, tracheal deviation Respiratory exam: PRESENT: symmetrical, wheezes - Prominent expiratory wheezes are noted., other - Intubated with ventilator support for breathing. ABSENT: rales, rhonchi Cardiovascular exam: PRESENT: RRR, tachycardia. ABSENT: clicks, diastolic murmur, gallop, rubs, systolic murmur Vascular exam: PRESENT: normal capillary refill. ABSENT: pallor GI/Abdominal exam: PRESENT: normal bowel sounds, soft Rectal exam: PRESENT: deferred Extremities exam: ABSENT: joint swelling, pedal edema Musculoskeletal exam: ABSENT: ambulatory, deformity, dislocation Neurological exam: PRESENT: other - Sedated for intubation Psychiatric exam: PRESENT: other - Sedated for intubation Skin exam: ABSENT: jaundice, rash, urticaria Results Laboratory Results: 12/05/17 03:49 12/05/17 03:49 12/05/17 12/05/17 12/05/17 03:49 03:49 06:00 WBC 17.2 H RBC 4.62 Hgb 13.7 D Hct 40.3 MCV 87 MCH 29.6 MCHC 33.9 RDW 14.3 H Plt Count 176 Seg Neutrophils % Not Reportable Lymphocytes % Not Reportable Monocytes % Not Reportable Eosinophils % Not Reportable Basophils % Not Reportable Absolute Neutrophils Not Reportable Absolute Lymphocytes Not Reportable Absolute Monocytes Not Reportable Absolute Eosinophils Not Reportable Absolute Basophils Not Reportable Carbonic Acid 1.47 H HCO3/H2CO3 Ratio 16:1 ABG pH 7.31 L ABG pCO2 49.0 H ABG pO2 87.7 ABG HCO3 24.0 ABG O2 Saturation 95.8 ABG Base Excess -2.7 FiO2 40% Sodium 144.8 Potassium 4.8 Chloride 112 H Carbon Dioxide 22 Anion Gap 11 BUN 11 Creatinine 0.88 Est GFR ( Amer) > 60 Est GFR (Non-Af Amer) > 60 Glucose 146 H Calcium 8.8 Phosphorus 3.2 Magnesium 2.0 Total Bilirubin 0.4 AST 15 L ALT 29 Alkaline Phosphatase 74 Total Protein 5.9 L Albumin 3.5 Impressions: Chest X-Ray 12/05/17 06:00 IMPRESSION: No evidence of acute intrathoracic disease. The life support lines and tubes are grossly stable in position. Assessment & Plan - Diagnosis (1) Status asthmaticus Qualifiers: Asthma severity: severe Asthma persistence: persistent Qualified Code(s) : J45.52 - Severe persistent asthma with status asthmaticus Is this a current diagnosis for this admission?: Yes Plan: Patient will be maintained on ventilatory support via endotracheal intubation until such time as he can be weaned from support at the direction of the pulmonary leadership development consultant. He will in the meantime be treated with a very aggressive pulmonary toilet utilizing DuoNeb every 6 hours and budesonide every 12 hours and will additionally be given intravenous steroids with Solu-Medrol 125 mg IV stat followed by 40 mg IV every 8 hours until discontinued. IV fluid support maintenance will be continued until he is able to be awake and alert and eat and drink without respiratory difficulty. (2) Acute hypercapnic respiratory failure Is this a current diagnosis for this admission?: Yes Plan: Patient has been intubated and is on ventilatory support which will be managed by pulmonology. His hypercapnia and acidosis have essentially resolved at this point with ventillatory support. - Time Time Spent with patient: 25-34 minutes Medications reviewed and adjusted accordingly: No Anticipated discharge: Home
[2017-12-05] MEDS ORDERED: FENTANYL CITRATE INJ/PF 100 MCG/2 ML AMPUL ONE (17:16)
--- NOTE | 2017-12-05 19:53 | XCELERA REPORT ---
[address] [address] Transthoracic Echocardiogram Report Name: NIGEL RAMOS Age: 27 yrs Gender: Male : 1990 Patient Status: Inpatient Patient Location: ICU^608^A Study Date: 12/05/2017 11:25 AM Height: 74 in Weight: 192 lb BSA: 2.1 m2 Procedure: A two-dimensional transthoracic echocardiogram with color flow and Doppler was performed. The study was technically difficult with many images being suboptimal in quality. Images were not obtained from all of the standard acoustic windows due to the limited scope of the study. Reason For Study: Resp. Failre History: RESPIRATORY FAILURE / MURMUR. Ordering Physician: NAVEED LOYOLA Performed By: Rosemary Solorio Interpretation Summary The left ventricle is normal in size. There is normal left ventricular wall thickness. No True apical 2 chamber views obtained.Hence cannot comment on the apical anterior , the basal anterior, the basal inferior and apical inferior reyes.The mid anterior , the mid inferior and the rest of the LV reyes contract normally. .Normal LVEF at 65% in the limited views. Doppler measurements suggest impaired left ventricular relaxation, which is associated with grade I/IV or mild diastolic dysfunction There is no thrombus. The right ventricle is normal in size and function. The left atrial size is normal. There is no mitral valve stenosis. There is a mild amount of mitral regurgitation There is no evidence of mitral valve prolapse. There is no LVOT obstruction. There is no aortic valve stenosis No aortic regurgitation is present. There is no tricuspid stenosis. There is a mild amount of tricuspid regurgitation There is mild pulmonary hypertension by echo rvsp IS 43 MM OF hG , WITH ra MEAN OF 20. sMALL rIGHT SIDED PERICARDIAL EFFUSION. There are no echocardiographic or Doppler indications for cardiac tamponade MMode/2D Measurements & Calculations RVDd: 2.6 cm LVIDd: 4.8 cm FS: 39.4 % Ao root diam: 2.0 cm IVSd: 0.78 cm LVIDs: 2.9 cm EDV(Teich): 110.0 ml Ao root area: 3.2 cm2 LVPWd: 0.85 cm ESV(Teich): 33.2 ml LA dimension: 2.9 cm EF(Teich): 69.8 % Doppler Measurements & Calculations MV E max miguelina: MV P1/2t max miguelina: Ao V2 max: LV V1 max P.8 cm/sec 69.3 cm/sec 136.4 cm/sec 5.7 mmHg MV A max miguelina: MV P1/2t: 35.5 msec Ao max P.4 mmHgLV V1 max: 89.6 cm/sec MVA(P1/2t): 6.2 cm2 119.5 cm/sec MV E/A: 0.77 MV dec slope: 571.5 cm/sec2 MV dec time: 0.12 sec PA V2 max: TR max miguelina: MV P1/2t-pr_phl: 119.4 cm/sec 238.9 cm/sec 35.5 msec PA max P.7 mmHgTR max P.8 mmHg Left Ventricle The left ventricle is normal in size. There is normal left ventricular wall thickness. No True apical 2 chamber views obtained.Hence cannot comment on the apical anterior , the basal anterior, the basal inferior and apical inferior reyes.The mid anterior , the mid inferior and the rest of the LV reyes contract normally. .Normal LVEF at 65% in the limited views. Doppler measurements suggest impaired left ventricular relaxation, which is associated with grade I/IV or mild diastolic dysfunction. There is no thrombus. Right Ventricle The right ventricle is not well visualized secondary to technical limitations. The right ventricle is normal in size and function. Atria The right atrium is normal. The left atrial size is normal. Mitral Valve There is no evidence of mitral valve prolapse. There is no vegetation seen on the mitral valve. There is no mitral valve stenosis. There is a mild amount of mitral regurgitation. Aortic Valve There is no aortic valve stenosis. There is no LVOT obstruction. No aortic regurgitation is present. Tricuspid Valve There is no tricuspid stenosis. There is a mild amount of tricuspid regurgitation. There is mild pulmonary hypertension by echo. rvsp IS 43 MM OF hG , WITH ra MEAN OF 20. Pulmonic Valve There is no pulmonic valvular stenosis. There is no pulmonic valvular regurgitation. Effusions sMALL rIGHT SIDED PERICARDIAL EFFUSION. There are no echocardiographic or Doppler indications for cardiac tamponade. : NAVEED LOYOLA > Queenie Macedo
[2017-12-06] MEDS ORDERED: FENTANYL CITRATE INJ/PF 100 MCG/2 ML AMPUL ONE (00:55)
[2017-12-06] MEDS: IPRATROPIUM/ALBUTEROL 0.5-2.5 MG/3 ML AMPUL NEB PRN ×3 (00:58→11:51)
[2017-12-06] MEDS: VANCOMYCIN HCL 1,500 MG in DEXTROSE 5%-WATER 250 ML IV SCH ×2 (01:03→10:00)
[2017-12-06] MEDS: METHYLPREDNISOLONE INJ 40 MG/1 ML SDV IV SCH ×4 (01:04→18:03)
[2017-12-06] MEDS: IPRATROPIUM/ALBUTEROL 0.5-2.5 MG/3 ML AMPUL NEB SCH ×4 (02:29→19:46)
[2017-12-06] MEDS: FENTANYL CITRATE INJ/PF 100 MCG/2 ML AMPUL IV PRN ×4 (04:20→22:20)
[2017-12-06] MEDS: NORMAL SALINE 500 ML with ROCURONIUM BROMIDE 500 MG IV PRN ×2 (04:28)
[2017-12-06] MEDS: MIDAZOLAM HCL 50 MG/100 ML RTUINJ IV PRN ×6 (04:29→22:16)
[2017-12-06] MEDS: KETAMINE HCL INJ 500 MG/10 ML VIAL IV PRN (04:30)
[2017-12-06 04:49] LABS: HEMOGLOBIN 14.2 g/dL (13.5-17.0); MEAN CORPUSCULAR HEMOGLOBIN 29.6 pg (27.0-33.4); MEAN CORPUSCULAR HGB CONC 33.9 g/dL (32.0-36.0); MEAN CORPUSCULAR VOLUME 87 fl (80-97); PLATELET COUNT 158 10^3/uL (150-450); RED BLOOD COUNT 4.81 10^6/uL (4.35-5.55); RED CELL DISTRIBUTION WIDTH 14.3 % (11.5-14.0)
[2017-12-06 05:00] LABS: ALANINE AMINOTRANSFERASE 23 U/L (21-72); ALBUMIN 3.9 g/dL (3.5-5.0); ALKALINE PHOSPHATASE 74 U/L (38-126); ANION GAP 9 (5-19); ASPARTATE AMINO TRANSFERASE 16 U/L (17-59); BILIRUBIN,DIRECT 0.4 mg/dL (0.0-0.4); BILIRUBIN,TOTAL 0.5 mg/dL (0.2-1.3); BLOOD UREA NITROGEN 15 mg/dL (7-20); CARBON DIOXIDE 25 mmol/L (22-30); CHLORIDE 107 mmol/L (98-107); GLUCOSE 143 mg/dL (75-110); POTASSIUM 4.8 mmol/L (3.6-5.0); SODIUM 140.8 mmol/L (137-145); TOTAL PROTEIN 6.5 g/dL (6.3-8.2)
[2017-12-06 05:23] LABS: ABSOLUTE LYMPHOCYTES# (MANUAL) 0.2 10^3/uL (0.5-4.7); ABSOLUTE MONOCYTES # (MANUAL) 0.7 10^3/uL (0.1-1.4); ABSOLUTE NEUTROPHILS# (MANUAL) 17.1 10^3/uL (1.7-8.2); BASOPHILS % (MANUAL) 0 % (0-2); EOSINOPHILS % (MANUAL) 0 % (0-6); LYMPHOCYTES % (MANUAL) 1 % (13-45); MONOCYTES % (MANUAL) 4 % (3-13); PLATELET COMMENT ADEQUATE; RBC MORPHOLOGY COMMENT NORMO-CYTIC/CHROMIC; SEGMENTED NEUTROPHILS % (MAN) 95 % (42-78); TOTAL CELLS COUNTED 100
[2017-12-06 06:11] LABS: ARTERIAL BLOOD BASE EXCESS -0.9 mmol/L; ARTERIAL BLOOD H2CO3 1.53 mmol/L (1.05-1.35); ARTERIAL BLOOD HCO3 25.8 mmol/L (20-24); ARTERIAL BLOOD O2 SATURATION 97.2 % (94-98); ARTERIAL BLOOD PCO2 50.8 mmHg (35-45); ARTERIAL BLOOD PH 7.32 (7.35-7.45); ARTERIAL BLOOD TOTAL CO2 27.3 mmol/L (23-27)
[2017-12-06 06:14] LABS: ARTERIAL BLOOD FIO2 60%
[2017-12-06] MEDS: POTASSI CL 20 MEQ/D5-1/2NS 1L 1000 ML IV PRN ×2 (06:23→22:21)
--- NOTE | 2017-12-06 07:26 | RADIOLOGY REPORT (SQ) ---
EXAM DESCRIPTION: CHEST SINGLE VIEW COMPLETED DATE/TIME: 12/06/2017 7:00 am REASON FOR STUDY: resp failure COMPARISON: 12/05/2017. EXAM PARAMETERS: NUMBER OF VIEWS: One view. TECHNIQUE: Single frontal radiographic view of the chest acquired. RADIATION DOSE: NA LIMITATIONS: None. FINDINGS: LUNGS AND PLEURA: No acute infiltrates or effusions. MEDIASTINUM AND HILAR STRUCTURES: No masses. Contour normal. HEART AND VASCULAR STRUCTURES: Heart normal in size. Normal vasculature. BONES: Bony structures are intact. HARDWARE: The endotracheal tube is above the gabi. The NG tube is passing toward the stomach. OTHER: No other significant finding. IMPRESSION: NO ACUTE DISEASE. TECHNICAL DOCUMENTATION: JOB ID: [id number] SC-[id number] 2010 [employer]- All Rights Reserved Reading location - IP/workstation name: [email or web address]
[2017-12-06] MEDS: BUDESONIDE NEB 0.5 MG/2 ML AMPUL NEB SCH ×2 (07:51→19:46)
[2017-12-06] MEDS: ENOXAPARIN SODIUM INJ 40 MG/0.4 ML DISP.SYRIN SUBCUT SCH (09:27)
[2017-12-06] MEDS: DOCUSATE SODIUM 100 MG/10 ML UDC PO SCH (09:27)
[2017-12-06] MEDS: MONTELUKAST SODIUM 10 MG TABLET GT SCH (09:27)
[2017-12-06] MEDS: FAMOTIDINE INJ/PF 20 MG/2 ML SDV IV SCH ×2 (09:27→22:20)
[2017-12-06] MEDS ORDERED: PROPOFOL 1,000 MG/100 ML INFUS..BTL IV ONE (10:32)
[2017-12-06] MEDS ORDERED: BISACODYL 10 MG SUPP.RECT PR PRN (10:33)
[2017-12-06] MEDS: PROPOFOL 1,000 MG/100 ML INFUS..BTL IV PRN ×3 (10:35→22:20)
[2017-12-06 10:51] LABS: VANCOMYCIN,TROUGH 11.9 ug/mL (5.0-20.0)
--- NOTE | 2017-12-06 11:00 | PDOC PROGRESS REPORT ---
Subjective Progress Note for:: 12/05/17 Subjective:: unchanged Reason For Visit: ACUTE RESPIRATORY DISTRESS Physical Exam Vital Signs: Temp Pulse Resp BP Pulse Ox 98.6 F 115 H 24 H 115/50 L 96 12/05/17 06:21 12/05/17 08:03 12/05/17 08:03 12/05/17 06:21 12/05/17 08:03 Intake & Output 12/04/17 12/05/17 12/06/17 06:59 06:59 06:59 Intake Total 45 4715 950 Output Total 490 2505 Balance -445 2210 950 Weight 88.1 kg 87.5 kg General appearance: PRESENT: no acute distress, disheveled, well-developed, well -nourished. ABSENT: cooperative Head exam: PRESENT: atraumatic, normocephalic Eye exam: PRESENT: conjunctiva pink. ABSENT: nystagmus, periorbital swelling, scleral icterus Neck exam: PRESENT: other - ET tube. ABSENT: carotid bruit, JVD, lymphadenopathy, thyromegaly, tracheal deviation, tracheostomy Respiratory exam: PRESENT: decreased breath sounds, prolonged expiratory phas, rhonchi, symmetrical, tachypnea, unlabored, wheezes. ABSENT: retraction, stridor Cardiovascular exam: PRESENT: RRR, +S1, +S2 Pulses: PRESENT: normal radial pulses GI/Abdominal exam: PRESENT: soft. ABSENT: tenderness Extremities exam: PRESENT: pedal edema. ABSENT: calf tenderness, clubbing, joint swelling Musculoskeletal exam: ABSENT: ambulatory, deformity, dislocation Neurological exam: ABSENT: awake Skin exam: PRESENT: dry, warm Results Laboratory Results: 12/05/17 03:49 12/05/17 03:49 12/04/17 12/04/17 12/04/17 10:55 12:30 13:00 WBC RBC Hgb Hct MCV MCH MCHC RDW Plt Count Seg Neutrophils % Lymphocytes % Monocytes % Eosinophils % Basophils % Absolute Neutrophils Absolute Lymphocytes Absolute Monocytes Absolute Eosinophils Absolute Basophils Carbonic Acid 1.95 H 1.42 H HCO3/H2CO3 Ratio 12:1 15:1 ABG pH 7.19 L* 7.27 L ABG pCO2 64.7 H 47.2 H ABG pO2 79.6 L 89.2 ABG HCO3 24.3 H 21.4 ABG O2 Saturation 92.6 L 95.7 ABG Base Excess -5.3 -5.6 FiO2 40% 40% Sodium Potassium Chloride Carbon Dioxide Anion Gap BUN Creatinine Est GFR ( Amer) Est GFR (Non-Af Amer) Glucose Calcium Phosphorus Magnesium Total Bilirubin AST ALT Alkaline Phosphatase Total Protein Albumin 12/05/17 12/05/17 12/05/17 03:49 03:49 06:00 WBC 17.2 H RBC 4.62 Hgb 13.7 D Hct 40.3 MCV 87 MCH 29.6 MCHC 33.9 RDW 14.3 H Plt Count 176 Seg Neutrophils % Not Reportable Lymphocytes % Not Reportable Monocytes % Not Reportable Eosinophils % Not Reportable Basophils % Not Reportable Absolute Neutrophils Not Reportable Absolute Lymphocytes Not Reportable Absolute Monocytes Not Reportable Absolute Eosinophils Not Reportable Absolute Basophils Not Reportable Carbonic Acid 1.47 H HCO3/H2CO3 Ratio 16:1 ABG pH 7.31 L ABG pCO2 49.0 H ABG pO2 87.7 ABG HCO3 24.0 ABG O2 Saturation 95.8 ABG Base Excess -2.7 FiO2 40% Sodium 144.8 Potassium 4.8 Chloride 112 H Carbon Dioxide 22 Anion Gap 11 BUN 11 Creatinine 0.88 Est GFR ( Amer) > 60 Est GFR (Non-Af Amer) > 60 Glucose 146 H Calcium 8.8 Phosphorus 3.2 Magnesium 2.0 Total Bilirubin 0.4 AST 15 L ALT 29 Alkaline Phosphatase 74 Total Protein 5.9 L Albumin 3.5 Impressions: Chest X-Ray 12/05/17 06:00 IMPRESSION: No evidence of acute intrathoracic disease. The life support lines and tubes are grossly stable in position. Assessment & Plan - Diagnosis (1) Status asthmaticus Qualifiers: Asthma severity: severe Asthma persistence: persistent Qualified Code(s) : J45.52 - Severe persistent asthma with status asthmaticus Is this a current diagnosis for this admission?: Yes Plan: unchanged (2) Acute hypercapnic respiratory failure Is this a current diagnosis for this admission?: Yes Plan: improved - Time Total Critical Time (Minutes): 50
[2017-12-06] MEDS: LEVOFLOXACIN 750 MG/D5W RTU 750 MG/150 ML RTUPB IV SCH (11:45)
[2017-12-06] MEDS: ACETYLCYSTEINE 20% SOLN 800 MG/4 ML VIAL.NEB NEB SCH ×2 (11:51→19:46)
[2017-12-06] MEDS ORDERED: METOPROLOL TARTRATE PF/INJ 5 MG/5 ML SDV IV ONE (12:09)
[2017-12-06] MEDS ORDERED: METOPROLOL TARTRATE PF/INJ 5 MG/5 ML SDV IV PRN (12:46)
--- NOTE | 2017-12-06 12:49 | PDOC PROGRESS REPORT ---
Subjective Progress Note for:: 12/06/17 Subjective:: KIET RAMOS is a 27 year old male who presented to the emergency room with a 2-day history of progressively worsening dyspnea with wheezing. He has a known past medical history of poorly controlled asthma requiring hospitalization and intubation in past. He admitted that his dyspnea had worsened over the 12 hours prior to his presentation to the point where it had become extremely severe and he called for the ambulance himself. Upon arrival to the emergency department he was found to be diaphoretic with increased work of breathing and severely tachypneic which resulted in his intubation by the ED physician. 12/04/17: Mr. Ramos is seen today in the ICU. He is currently sedated and intubated on a ventilator for respiratory support. His records have been reviewed and his medications and treatments have been noted. Pulmonology is consulting and performing ventilator management. He is stable and somewhat improved on the ventilator today. Bolus doses of IV Solu-Medrol with an initial dose of 125 mg followed by 40 mg every 8 hours are ordered. An aggressive pulmonary toilet was ordered by the chipper. 12/05/17: Mr. Ramos is again seen in the ICU intubated and on a ventilator with respiratory support. His blood gases were improved today and he has been able to tolerate a decrease in his FiO2 down to 35%. He has been able to maintain a good oxygen saturation following this change. Pulmonology has also changed some of his paralytics and sedatives as well as analgesics to help to alleviate the rather chronic hypotension and tachycardia. He has been receiving large fluid volume and his urine output has improved since his Pedro catheter which was apparently obstructed with urinary sediment was changed. His examination today shows a significant improvement in air movement throughout his chest and this has resulted in increased wheezing specifically because the air movement is substantially improved there is a significant prolongation of his expiratory phase and this will hopefully correct as his IV steroids are continued. As his bronchoconstriction is reduced he will be more able to be taken off of ventilatory support. IV fluids will be continued at 167 mL/h and daily laboratory evaluations will be continued. 12/06/17: Reynold continues to require intubation and respiratory support and has actually had somewhat of a decrease in his respiratory function overnight currently requiring 100% FiO2. For this reason after personally discussing the case with his Dr. Fish (pulmonology) we have agreed that discontinuation of ketamine would be a good plan and also reduction in his rocuronium infusion would be desirable. Propofol will be used for ventilatory sedation. I will start fentanyl IV 75 mcg every 2 hours as needed for pain or obvious discomfort. Additionally I will add metoprolol 5 mg IV every 4 hours as needed tachycardia ( as I would expect he will develop his tachycardia again when rocuronium is withdrawn). I have personally evaluated his chest x-ray and note that his pulmonary hyperinflation is persistent with no evidence of infiltrate or pleural effusions. His CBC shows a stable hemoglobin and an elevation of his white blood count 18,000, but the leukocytosis is most likely due to steroid therapy as is the mild hyperglycemia noted on his metabolic profile. We will continue to obtain daily chest x-rays while he is on ventilator and I will continue to review them each day that I am providing his care. We will continue to provide IV steroids and after discussion with Dr. Fish we will also treat him with IV antibiotics as his course has not been as expected with steady improvement in his pulmonary function to the point where he could be extubated. My review of previous records shows that in the past he has had similar episodes but has generally been able to be taken off interventional respiratory support after approximately 1-2 days. On examination today his wheezing is somewhat decreased in volume and with reduced prolongation of his expiratory phase the wheezing cycle is shorter, thus clinical exam would indicate overall improvement as what his arterial blood gases which showed improvement in his pH and a reduction in his PCO2. IV fluids will be continued at a maintenance rate of 125 mL/h as the patient's urine output has significantly improved. Reason For Visit: ACUTE RESPIRATORY DISTRESS Physical Exam Vital Signs: Temp Pulse Resp BP Pulse Ox 98.8 F 102 H 24 H 101/60 94 12/06/17 11:08 12/06/17 10:00 12/06/17 11:08 12/06/17 11:08 12/06/17 11:08 Intake & Output 12/04/17 12/05/17 12/06/17 23:59 23:59 23:59 Intake Total 3309 9552 2460 Output Total 1755 3400 1195 Balance 1554 3072 1265 Weight 88.1 kg 87.5 kg 90.8 kg General appearance: PRESENT: well-developed, well-nourished, other - Intubated with ventilatory support, sedated for ventilation Head exam: PRESENT: atraumatic, normocephalic Eye exam: PRESENT: conjunctiva pink. ABSENT: conjunctival injection - Is he does work as well as Benadryl basically sleep, periorbital swelling, scleral icterus Ear exam: PRESENT: normal external ear exam. ABSENT: bleeding, drainage Mouth exam: PRESENT: moist, tongue midline - I did ask to stop her proton gave her liquid is is is is this dictation is 100 200 her is is there is no virtually worthless of history mostly for just terribly strong in the there is no there is no no and so there is no Felipa is may be a Dockery is once here to we do not want to do him Neck exam: ABSENT: thyromegaly, tracheal deviation - Acute change in the is good to see to go the same place with the mouth every time changed Respiratory exam: PRESENT: prolonged expiratory phas - Moderately prolonged but improved since previous exam., symmetrical, wheezes - Moderate wheezing improved from previous exam, other - Paralyzed and sedated with an endotracheal tube and ventilator support for breathing.. ABSENT: rales, rhonchi Cardiovascular exam: PRESENT: RRR, tachycardia. ABSENT: clicks, diastolic murmur, gallop, rubs, systolic murmur Pulses: PRESENT: normal radial pulses, normal dorsalis pedis pul Vascular exam: PRESENT: normal capillary refill. ABSENT: pallor GI/Abdominal exam: PRESENT: normal bowel sounds, soft Rectal exam: PRESENT: deferred Extremities exam: PRESENT: pedal edema - Trace bipedal edema. ABSENT: joint swelling Musculoskeletal exam: ABSENT: ambulatory, deformity, dislocation Neurological exam: PRESENT: other - Sedated and paralyzed for intubation Psychiatric exam: PRESENT: other - Sedated with examination not possible Skin exam: ABSENT: jaundice, rash, urticaria Results Laboratory Results: 12/06/17 04:20 12/06/17 04:20 12/06/17 12/06/17 12/06/17 04:20 04:20 06:00 WBC 18.0 H RBC 4.81 Hgb 14.2 Hct 42.0 MCV 87 MCH 29.6 MCHC 33.9 RDW 14.3 H Plt Count 158 Seg Neutrophils % Not Reportable Lymphocytes % Not Reportable Monocytes % Not Reportable Eosinophils % Not Reportable Basophils % Not Reportable Absolute Neutrophils Not Reportable Absolute Lymphocytes Not Reportable Absolute Monocytes Not Reportable Absolute Eosinophils Not Reportable Absolute Basophils Not Reportable Carbonic Acid 1.53 H HCO3/H2CO3 Ratio 16:1 ABG pH 7.32 L ABG pCO2 50.8 H ABG pO2 103.0 H ABG HCO3 25.8 H ABG O2 Saturation 97.2 ABG Base Excess -0.9 FiO2 60% Sodium 140.8 Potassium 4.8 Chloride 107 Carbon Dioxide 25 Anion Gap 9 BUN 15 Creatinine 0.82 Est GFR ( Amer) > 60 Est GFR (Non-Af Amer) > 60 Glucose 143 H Calcium 9.0 Magnesium 2.3 Total Bilirubin 0.5 AST 16 L ALT 23 Alkaline Phosphatase 74 Total Protein 6.5 Albumin 3.9 Impressions: Chest X-Ray 12/06/17 06:00 IMPRESSION: NO ACUTE DISEASE. Assessment & Plan - Diagnosis (1) Status asthmaticus Qualifiers: Asthma severity: severe Asthma persistence: persistent Qualified Code(s) : J45.52 - Severe persistent asthma with status asthmaticus Is this a current diagnosis for this admission?: Yes Plan: Patient will be maintained on ventilatory support via endotracheal intubation, with appropriate sedation/paralytic drugs, until such time as he can be weaned from support at the direction of Dr. Fish, the pulmonary sr risk management consultant. He will in the meantime be treated with a very aggressive pulmonary toilet utilizing DuoNeb every 6 hours and budesonide every 12 hours and will additionally be given intravenous steroids with Solu-Medrol 125 mg IV stat followed by 40 mg IV every 8 hours until discontinued. IV fluid support maintenance will be continued until he is able to be awake and alert and eat and drink without respiratory difficulty. Daily chest x-rays, ABGs, CBCs and BMP's will be obtained to follow and manage the patient's care while he is intubated and in the post intubation period. (2) Acute hypercapnic respiratory failure Is this a current diagnosis for this admission?: Yes Plan: Patient has been intubated and is on ventilatory support which will be managed by Dr. Fish, the chipper. His hypercapnia and acidosis have essentially resolved at this point with ventillatory support. Ventilatory support will continue until such time as he has significant improvement in his respiratory status but he may be extubated. His respiratory status will continue to be monitored throughout his entire hospital course. (3) Tachycardia Is this a current diagnosis for this admission?: Yes Plan: Kiet has had a moderate tachycardia since his admission, however his tachycardia was significantly reduced when he was placed on a rocuronium infusion. The few episodes of tachycardia that he has had, prior to the discontinuation of his rocuronium infusion today, were resolved with IV fentanyl and were felt to be associated with the patient's discomfort due to intubation and ventilation requiring sedation and paralysis. The etiology of the tachycardia is probably multifactorial including beta agonist drugs, anxiety associated with respiratory distress, hypovolemia and possible substances of abuse. His tachycardia will most likely recur when he is taken off rocuronium and it will be treated with metoprolol 5 mg IV every 4 hours as needed heart rate greater than 110. (4) Leukocytosis Qualifiers: Leukocytosis type: unspecified Qualified Code(s): D72.829 - Elevated white blood cell count, unspecified Is this a current diagnosis for this admission?: Yes Plan: Patient has been noted to have a leukocytosis that has increased since admission. This is most likely due to the use of steroid therapy. This will be observed throughout the remainder of his hospital course with daily laboratory evaluations and will most likely need to be followed at his post hospital evaluations with his primary care provider. - Time Time Spent with patient: 35 or more minutes Medications reviewed and adjusted accordingly: Yes Anticipated discharge: Home
--- NOTE | 2017-12-06 13:22 | RADIOLOGY REPORT (SQ) ---
EXAM DESCRIPTION: CTA CHEST COMPLETED DATE/TIME: 12/06/2017 12:47 pm REASON FOR STUDY: sob COMPARISON: None. TECHNIQUE: CT scan of the chest performed using helical scanning technique with dynamic intravenous contrast injection. Images reviewed with lung, soft tissue and bone windows. Reconstructed coronal and sagittal MPR images reviewed. Additional 3 dimensional post-processing performed to develop Maximal Intensity Projection images ([place] P). All images stored on PACS. All CT scanners at this facility use dose modulation, iterative reconstruction, and/or weight based d osing when appropriate to reduce radiation dose to as low as reasonably achievable (ALARA). [facility]: Dose Right [facility]: CareDose [facility]: Dose Right [facility]: Teradose 4D [facility]: Adomos CONTRAST TYPE AND DOSE: contrast/concentration: Isovue 350.00 mg/ml; Total Contrast Delivered: 77.0 ml; Total Saline Delivered: 80.0 ml Contrast bolus optimized for the pulmonary arteries. Not diagnostic for the aorta. RENAL FUNCTION: Creatinine: 0.82. RADIATION DOSE: CT Rad equipment meets quality standard of care and radiation dose reduction techniq ues were employed. CTDIvol: 6.6 - 33.1 mGy. DLP: 2730 mGy-cm. . LIMITATIONS: None. FINDINGS: LUNGS AND PLEURA: Chronic subpleural interstitial scarring lingula. Ground-glass infiltra te right middle lobe and anterior segment right upper lobe. Pneumonia not excluded. Right pleural t hickening. There is evidence of fluid and or mucoid secretions within bronchi to the lower lobes. AORTA AND GREAT VESSELS: No aneurysm. Contrast bolus not optimized for the aorta. HEART: No pericardial effusion. No significant coronary artery calcifications. PULMONARY ARTERIES: No emboli visualized in the main pulmonary arteries or the segmental branches. HILAR AND MEDIASTINAL STRUCTURES: No identified masses or abnormal nodes. HARDWARE: None in the chest. UPPER ABDOMEN: Ascites noted. THYROID AND OTHER SOFT TISSUES: No masses. No adenopathy. BONES: Dorsal scoliosis convex left. 3D MIPS: Confirm above findings. OTHER: Endotracheal tube above gabi. Feeding tube passing toward stomach. IMPRESSION: 1. Ground-glass infiltrate right upper lobe and right 0 which could represent pneumonia . Endobronchial secretions node with in the lower lobes bilaterally. No pulmonary embolus. 2. Asc ites. COMMENT: Quality ID # [id number]: Final reports with documentation of one or more dose reduction techniques (e.g., Automated exposure control, adjustment of the mA and/or kV according to patient size, use of iterative reconstruction technique) TECHNICAL DOCUMENTATION: JOB ID: [id number] SC-69 2010 [employer]- All Rights Reserved Reading location - IP/workstation name: [email or web address]
--- NOTE | 2017-12-06 13:34 | RADIOLOGY REPORT (SQ) ---
EXAM DESCRIPTION: CT ABD/PELVIS WITH IV ONLY COMPLETED DATE/TIME: 12/06/2017 12:47 pm REASON FOR STUDY: POSSIBLE OBSTRUCTION COMPARISON: None. TECHNIQUE: CT scan of the abdomen and pelvis performed using helical scanning technique with dynamic intravenous contrast injection. No oral contrast. Images reviewed with lung, soft tissue, and bone windows. Reconstructed coronal and sagittal MPR images reviewed. Delayed images for evaluation of the urinary system also acquired. All images stored on PACS. All CT scanners at this facility use dose modulation, iterative reconstruction, and/or weight based d osing when appropriate to reduce radiation dose to as low as reasonably achievable (ALARA). [facility]: Dose Right [facility]: CareDose [facility]: Dose Right [facility]: Teradose 4D [facility]: [facility] CONTRAST TYPE AND DOSE: I Omnipaque 350. 77 mL. RENAL FUNCTION: Creatinine: 0.82 RADIATION DOSE: 2730.12 LIMITATIONS: None. FINDINGS: LIVER: Borderline hepatomegaly. Evidence of periportal lucencies. These findings are non specific sign duct can be associated with congestive heart failure, hepatitis, cholangitis. SPLEEN: No abnormality. PANCREAS: No masses. No significant calcifications. No adjacent inflammation or peripancreatic fluid collections. Pancreatic duct not dilated. GALLBLADDER: Pericholecystic ascites. . ADRENAL GLANDS: No significant masses or asymmetry. RIGHT KIDNEY AND URETER: No abnormality. LEFT KIDNEY AND URETER: No abnormality. AORTA AND VESSELS: No abnormality. No dissection. Renal arteries, SMA, celiac without stenosis. RETROPERITONEUM: No retroperitoneal adenopathy, hemorrhage or masses. BOWEL AND PERITONEAL CAVITY: No masses or inflammatory changes. No free fluid or peritoneal masses. APPENDIX: Normal. PELVIS: Urinary bladder: Pedro catheter in bladder base small amount air in bladder secondary to Fol ey catheter placement. ABDOMINAL WALL: No masses. No hernias. BONES: Small holes node superior and clip of L1, L2-L4. . OTHER: Abdominal and pelvic ascites. IMPRESSION: 1. Borderline hepatomegaly. Periportal lucencies. The findings could be seen with con gestive failure hepatitis, or cholangitis 2. Abdominal and pelvic ascites. TECHNICAL DOCUMENTATION: JOB ID: [id number] Quality ID # [id number]: Final reports with documentation of one or more dose reduction techniques (e.g., Au tomated exposure control, adjustment of the mA and/or kV according to patient size, use of iterative reconstruction technique) 2010 [employer]- All Rights Reserved Reading location - IP/workstation name: [email or web address]
[2017-12-06] MEDS: CEFEPIME 2 GM/D5W RTU 2 GM/50 ML RTUPB IV SCH ×2 (14:10→22:27)
[2017-12-06] MEDS: VANCOMYCIN HCL 1,250 MG in DEXTROSE 5%-WATER 250 ML IV SCH ×2 (15:34→22:27)
[2017-12-06 19:24] LABS: BLOOD UREA NITROGEN 18 mg/dL (7-20); CARBON DIOXIDE 30 mmol/L (22-30); CHLORIDE 106 mmol/L (98-107); GLUCOSE 140 mg/dL (75-110); POTASSIUM 4.9 mmol/L (3.6-5.0); SODIUM 140.4 mmol/L (137-145)
[2017-12-06 20:25] LABS: ANION GAP 5 (5-19)
[2017-12-07] MEDS: PROPOFOL 1,000 MG/100 ML INFUS..BTL IV PRN ×5 (00:59→22:08)
[2017-12-07] MEDS: METHYLPREDNISOLONE INJ 40 MG/1 ML SDV IV SCH ×4 (00:59→17:12)
[2017-12-07] MEDS ORDERED: SUCRALFATE SUSP 1 GM/10 ML UDCUP PO ONE (01:50)
[2017-12-07] MEDS: IPRATROPIUM/ALBUTEROL 0.5-2.5 MG/3 ML AMPUL NEB SCH ×4 (02:36→20:52)
[2017-12-07 04:24] LABS: HEMATOCRIT 37.5 % (37.9-51.0); HEMOGLOBIN 12.9 g/dL (13.5-17.0); MEAN CORPUSCULAR HEMOGLOBIN 30.2 pg (27.0-33.4); MEAN CORPUSCULAR HGB CONC 34.4 g/dL (32.0-36.0); MEAN CORPUSCULAR VOLUME 88 fl (80-97); PLATELET COUNT 158 10^3/uL (150-450); RED BLOOD COUNT 4.27 10^6/uL (4.35-5.55); WHITE BLOOD COUNT 10.6 10^3/uL (4.0-10.5)
[2017-12-07 04:50] LABS: ALANINE AMINOTRANSFERASE 37 U/L (21-72); ALBUMIN 3.1 g/dL (3.5-5.0); ALKALINE PHOSPHATASE 66 U/L (38-126); ANION GAP 7 (5-19); ASPARTATE AMINO TRANSFERASE 33 U/L (17-59); BILIRUBIN,DIRECT 0.3 mg/dL (0.0-0.4); BILIRUBIN,TOTAL 0.4 mg/dL (0.2-1.3); BLOOD UREA NITROGEN 20 mg/dL (7-20); CALCIUM 8.8 mg/dL (8.4-10.2); CARBON DIOXIDE 28 mmol/L (22-30); CHLORIDE 108 mmol/L (98-107); GLUCOSE 135 mg/dL (75-110); POTASSIUM 4.7 mmol/L (3.6-5.0); SODIUM 142.9 mmol/L (137-145); TOTAL PROTEIN 5.5 g/dL (6.3-8.2)
[2017-12-07 05:13] LABS: ABSOLUTE LYMPHOCYTES# (MANUAL) 0.2 10^3/uL (0.5-4.7); ABSOLUTE MONOCYTES # (MANUAL) 0.5 10^3/uL (0.1-1.4); ABSOLUTE NEUTROPHILS# (MANUAL) 9.9 10^3/uL (1.7-8.2); BASOPHILS % (MANUAL) 0 % (0-2); EOSINOPHILS % (MANUAL) 0 % (0-6); LYMPHOCYTES % (MANUAL) 2 % (13-45); MONOCYTES % (MANUAL) 5 % (3-13); SEGMENTED NEUTROPHILS % (MAN) 93 % (42-78); TOTAL CELLS COUNTED 100
[2017-12-07 05:14] LABS: PLATELET COMMENT ADEQUATE; RBC MORPHOLOGY COMMENT NORMO-CYTIC/CHROMIC
[2017-12-07] MEDS: VANCOMYCIN HCL 1,250 MG in DEXTROSE 5%-WATER 250 ML IV SCH ×4 (05:35→22:07)
[2017-12-07 06:51] LABS: ARTERIAL BLOOD BASE EXCESS 0.5 mmol/L; ARTERIAL BLOOD H2CO3 1.34 mmol/L (1.05-1.35); ARTERIAL BLOOD HCO3 25.9 mmol/L (20-24); ARTERIAL BLOOD PCO2 44.6 mmHg (35-45); ARTERIAL BLOOD PH 7.38 (7.35-7.45); ARTERIAL BLOOD PO2 71.1 mmHg (80-100); ARTERIAL BLOOD TOTAL CO2 27.3 mmol/L (23-27)
[2017-12-07 06:52] LABS: ARTERIAL BLOOD FIO2 40%
--- NOTE | 2017-12-07 08:03 | RADIOLOGY REPORT (SQ) ---
EXAM DESCRIPTION: CHEST SINGLE VIEW COMPLETED DATE/TIME: 12/07/2017 6:23 am REASON FOR STUDY: resp failure COMPARISON: Portable chest 12/06/2017. CTA of chest 12/06/2017. EXAM PARAMETERS: NUMBER OF VIEWS: One view. TECHNIQUE: Single frontal radiographic view of the chest acquired. RADIATION DOSE: NA LIMITATIONS: None. FINDINGS: LUNGS AND PLEURA: No acute infiltrates or effusions. Previously described infiltrate see n on CT scan 12/06/2017 are not apparent . MEDIASTINUM AND HILAR STRUCTURES: No masses. Contour normal. HEART AND VASCULAR STRUCTURES: The heart is normal. The pulmonary vasculature is normal. BONES: No acute findings. HARDWARE: None in the chest. OTHER: Endotracheal tube above the gabi. NG tube overlying stomach. IMPRESSION: NO ACUTE RADIOGRAPHIC FINDING IN THE CHEST. TECHNICAL DOCUMENTATION: JOB ID: [id number] 2010 [employer]- All Rights Reserved Reading location - IP/workstation name: [email or web address]
[2017-12-07] MEDS: BUDESONIDE NEB 0.5 MG/2 ML AMPUL NEB SCH ×2 (08:13→20:52)
[2017-12-07] MEDS: ACETYLCYSTEINE 20% SOLN 800 MG/4 ML VIAL.NEB NEB SCH ×2 (08:13→20:52)
[2017-12-07] MEDS: SUCRALFATE SUSP 1 GM/10 ML UDCUP PO SCH ×3 (08:42→22:07)
[2017-12-07] MEDS: MONTELUKAST SODIUM 10 MG TABLET GT SCH (09:15)
[2017-12-07] MEDS ORDERED: ROCURONIUM BROMIDE INJ 50 MG/5 ML VIAL IV ONE (09:15)
[2017-12-07] MEDS: FAMOTIDINE INJ/PF 20 MG/2 ML SDV IV SCH ×2 (09:15→22:07)
[2017-12-07] MEDS: DOCUSATE SODIUM 100 MG/10 ML UDC PO SCH (09:16)
[2017-12-07] MEDS: ENOXAPARIN SODIUM INJ 40 MG/0.4 ML DISP.SYRIN SUBCUT SCH (09:16)
[2017-12-07 09:39] LABS: VANCOMYCIN,TROUGH 32.4 ug/mL (5.0-20.0)
[2017-12-07] MEDS: CEFEPIME 2 GM/D5W RTU 2 GM/50 ML RTUPB IV SCH (11:21)
[2017-12-07] MEDS: POTASSI CL 20 MEQ/D5-1/2NS 1L 1000 ML IV PRN (12:29)
[2017-12-07] MEDS: LEVOFLOXACIN 750 MG/D5W RTU 750 MG/150 ML RTUPB IV SCH (12:31)
--- NOTE | 2017-12-07 13:45 | PDOC PROGRESS REPORT ---
Subjective Progress Note for:: 12/06/17 Subjective:: increased FI2 req Reason For Visit: ACUTE RESPIRATORY DISTRESS Physical Exam Vital Signs: Temp Pulse Resp BP Pulse Ox 98.8 F 102 H 24 H 114/67 94 12/06/17 10:00 12/06/17 10:00 12/06/17 10:00 12/06/17 10:00 12/06/17 10:00 Intake & Output 12/05/17 12/06/17 12/07/17 06:59 06:59 06:59 Intake Total 4715 6648 715 Output Total 2505 3005 350 Balance 2210 3643 365 Weight 87.5 kg 90.8 kg General appearance: PRESENT: no acute distress, well-developed, well-nourished. ABSENT: cooperative, disheveled Head exam: PRESENT: atraumatic, normocephalic Eye exam: ABSENT: nystagmus, periorbital swelling, scleral icterus Mouth exam: PRESENT: dry mucosa, neck supple, tongue midline, other - ET tube Neck exam: ABSENT: carotid bruit, JVD, lymphadenopathy, thyromegaly, tracheal deviation, tracheostomy Respiratory exam: PRESENT: decreased breath sounds, prolonged expiratory phas, rhonchi, symmetrical, tachypnea, wheezes. ABSENT: rales, retraction, stridor, unlabored Cardiovascular exam: PRESENT: RRR, +S1, +S2 Pulses: PRESENT: normal radial pulses GI/Abdominal exam: PRESENT: soft. ABSENT: tenderness Extremities exam: PRESENT: pedal edema. ABSENT: calf tenderness, clubbing, joint swelling Neurological exam: ABSENT: awake Skin exam: PRESENT: dry, warm Results Laboratory Results: 12/06/17 04:20 12/06/17 04:20 12/06/17 12/06/17 12/06/17 04:20 04:20 06:00 WBC 18.0 H RBC 4.81 Hgb 14.2 Hct 42.0 MCV 87 MCH 29.6 MCHC 33.9 RDW 14.3 H Plt Count 158 Seg Neutrophils % Not Reportable Lymphocytes % Not Reportable Monocytes % Not Reportable Eosinophils % Not Reportable Basophils % Not Reportable Absolute Neutrophils Not Reportable Absolute Lymphocytes Not Reportable Absolute Monocytes Not Reportable Absolute Eosinophils Not Reportable Absolute Basophils Not Reportable Carbonic Acid 1.53 H HCO3/H2CO3 Ratio 16:1 ABG pH 7.32 L ABG pCO2 50.8 H ABG pO2 103.0 H ABG HCO3 25.8 H ABG O2 Saturation 97.2 ABG Base Excess -0.9 FiO2 60% Sodium 140.8 Potassium 4.8 Chloride 107 Carbon Dioxide 25 Anion Gap 9 BUN 15 Creatinine 0.82 Est GFR ( Amer) > 60 Est GFR (Non-Af Amer) > 60 Glucose 143 H Calcium 9.0 Magnesium 2.3 Total Bilirubin 0.5 AST 16 L ALT 23 Alkaline Phosphatase 74 Total Protein 6.5 Albumin 3.9 Impressions: Chest X-Ray 12/06/17 06:00 IMPRESSION: NO ACUTE DISEASE. Assessment & Plan - Diagnosis (1) Status asthmaticus Qualifiers: Asthma severity: severe Asthma persistence: persistent Qualified Code(s) : J45.52 - Severe persistent asthma with status asthmaticus Is this a current diagnosis for this admission?: Yes Plan: cxr unchanged ;fio2 req higher check CTA (2) Acute hypercapnic respiratory failure Is this a current diagnosis for this admission?: Yes Plan: Remains acidotic as well as requiring increased FiO2 - Time Total Critical Time (Minutes): 50
--- NOTE | 2017-12-07 13:51 | PDOC PROGRESS REPORT ---
Subjective Progress Note for:: 12/07/17 Subjective:: improved Reason For Visit: ACUTE RESPIRATORY DISTRESS Physical Exam Vital Signs: Temp Pulse Resp BP Pulse Ox 99.1 F 84 1 L 115/71 93 12/07/17 10:03 12/07/17 10:00 12/07/17 10:03 12/07/17 10:03 12/07/17 10:03 Intake & Output 12/06/17 12/07/17 12/08/17 06:59 06:59 06:59 Intake Total 6640 3191 959 Output Total 3005 3305 300 Balance 3643 -114 659 Weight 90.8 kg 91.6 kg General appearance: PRESENT: no acute distress, well-developed, well-nourished. ABSENT: disheveled Head exam: PRESENT: atraumatic, normocephalic Eye exam: ABSENT: nystagmus, periorbital swelling, scleral icterus Mouth exam: PRESENT: dry mucosa, neck supple, tongue midline, other - ET tube in place Neck exam: ABSENT: carotid bruit, JVD, lymphadenopathy, thyromegaly, tracheal deviation, tracheostomy Respiratory exam: PRESENT: prolonged expiratory phas, rales, rhonchi, tachypnea , unlabored, wheezes. ABSENT: retraction, stridor Cardiovascular exam: PRESENT: RRR, +S1, +S2 Pulses: PRESENT: normal radial pulses GI/Abdominal exam: PRESENT: soft. ABSENT: tenderness Extremities exam: ABSENT: calf tenderness, clubbing, joint swelling Musculoskeletal exam: ABSENT: ambulatory, deformity, dislocation Neurological exam: ABSENT: awake Skin exam: PRESENT: dry, warm Results Laboratory Results: 12/07/17 03:45 12/07/17 03:45 12/06/17 12/07/17 12/07/17 18:45 03:45 03:45 WBC 10.6 H RBC 4.27 L Hgb 12.9 L Hct 37.5 L MCV 88 MCH 30.2 MCHC 34.4 RDW 14.0 Plt Count 158 Seg Neutrophils % Not Reportable Lymphocytes % Not Reportable Monocytes % Not Reportable Eosinophils % Not Reportable Basophils % Not Reportable Absolute Neutrophils Not Reportable Absolute Lymphocytes Not Reportable Absolute Monocytes Not Reportable Absolute Eosinophils Not Reportable Absolute Basophils Not Reportable Carbonic Acid HCO3/H2CO3 Ratio ABG pH ABG pCO2 ABG pO2 ABG HCO3 ABG O2 Saturation ABG Base Excess FiO2 Sodium 140.4 142.9 Potassium 4.9 4.7 Chloride 106 108 H Carbon Dioxide 30 28 Anion Gap 5 7 BUN 18 20 Creatinine 0.92 0.84 Est GFR ( Amer) > 60 > 60 Est GFR (Non-Af Amer) > 60 > 60 Glucose 140 H 135 H Calcium 9.0 8.8 Magnesium 2.6 H 2.7 H Total Bilirubin 0.4 AST 33 ALT 37 Alkaline Phosphatase 66 Total Protein 5.5 L Albumin 3.1 L 12/07/17 05:30 WBC RBC Hgb Hct MCV MCH MCHC RDW Plt Count Seg Neutrophils % Lymphocytes % Monocytes % Eosinophils % Basophils % Absolute Neutrophils Absolute Lymphocytes Absolute Monocytes Absolute Eosinophils Absolute Basophils Carbonic Acid 1.34 HCO3/H2CO3 Ratio 19:1 ABG pH 7.38 ABG pCO2 44.6 ABG pO2 71.1 L ABG HCO3 25.9 H ABG O2 Saturation 94.0 ABG Base Excess 0.5 FiO2 40% Sodium Potassium Chloride Carbon Dioxide Anion Gap BUN Creatinine Est GFR ( Amer) Est GFR (Non-Af Amer) Glucose Calcium Magnesium Total Bilirubin AST ALT Alkaline Phosphatase Total Protein Albumin 12/04/17 06:11 Tracheal Aspirate Gram Stain - Final 12/04/17 06:11 Tracheal Aspirate Sputum Culture - Final NORMAL PAOLO 12/04/17 02:15 Catheterized Urine Urine Culture - Final NO GROWTH 2 DAYS Impressions: Abdomen/Pelvis CT 12/06/17 00:00 IMPRESSION: 1. Borderline hepatomegaly. Periportal lucencies. The findings could be seen with congestive failure hepatitis, or cholangitis 2. Abdominal and pelvic ascites. Chest/Abdomen CTA 12/06/17 10:33 IMPRESSION: 1. Ground-glass infiltrate right upper lobe and right 0 which could represent pneumonia. Endobronchial secretions node with in the lower lobes bilaterally. No pulmonary embolus. 2. Ascites. Chest X-Ray 12/07/17 06:00 IMPRESSION: NO ACUTE RADIOGRAPHIC FINDING IN THE CHEST. Assessment & Plan - Diagnosis (1) Status asthmaticus Qualifiers: Asthma severity: severe Asthma persistence: persistent Qualified Code(s) : J45.52 - Severe persistent asthma with status asthmaticus Is this a current diagnosis for this admission?: Yes Plan: cxr unchanged ;fio2 req Decreased (2) Acute hypercapnic respiratory failure Is this a current diagnosis for this admission?: Yes Plan: Improved - Time Total Critical Time (Minutes): 45
[2017-12-07 15:52] LABS: VANCOMYCIN,TROUGH 17.4 ug/mL (5.0-20.0)
[2017-12-07] MEDS ORDERED: MIDAZOLAM HCL 50 MG/100 ML RTUINJ ONE (16:20)
[2017-12-07] MEDS: FENTANYL CITRATE INJ/PF 100 MCG/2 ML AMPUL IV PRN (17:11)
--- NOTE | 2017-12-07 17:29 | PDOC PROGRESS REPORT ---
Subjective Progress Note for:: 12/07/17 Subjective:: KIET RAMOS is a 27 year old male who presented to the emergency room with a 2-day history of progressively worsening dyspnea with wheezing. He has a known past medical history of poorly controlled asthma requiring hospitalization and intubation in past. He admitted that his dyspnea had worsened over the 12 hours prior to his presentation to the point where it had become extremely severe and he called for the ambulance himself. Upon arrival to the emergency department he was found to be diaphoretic with increased work of breathing and severely tachypneic which resulted in his intubation by the ED physician. 12/04/17: Mr. Ramos is seen today in the ICU. He is currently sedated and intubated on a ventilator for respiratory support. His records have been reviewed and his medications and treatments have been noted. Pulmonology is consulting and performing ventilator management. He is stable and somewhat improved on the ventilator today. Bolus doses of IV Solu-Medrol with an initial dose of 125 mg followed by 40 mg every 8 hours are ordered. An aggressive pulmonary toilet was ordered by the entry driver operator. 12/05/17: Mr. Ramos is again seen in the ICU intubated and on a ventilator with respiratory support. His blood gases were improved today and he has been able to tolerate a decrease in his FiO2 down to 35%. He has been able to maintain a good oxygen saturation following this change. Pulmonology has also changed some of his paralytics and sedatives as well as analgesics to help to alleviate the rather chronic hypotension and tachycardia. He has been receiving large fluid volume and his urine output has improved since his Pedro catheter which was apparently obstructed with urinary sediment was changed. His examination today shows a significant improvement in air movement throughout his chest and this has resulted in increased wheezing specifically because the air movement is substantially improved there is a significant prolongation of his expiratory phase and this will hopefully correct as his IV steroids are continued. As his bronchoconstriction is reduced he will be more able to be taken off of ventilatory support. IV fluids will be continued at 167 mL/h and daily laboratory evaluations will be continued. 12/06/17: Reynold continues to require intubation and respiratory support and has actually had somewhat of a decrease in his respiratory function overnight currently requiring 100% FiO2. For this reason after personally discussing the case with his Dr. Fish (pulmonology) we have agreed that discontinuation of ketamine would be a good plan and also reduction in his rocuronium infusion would be desirable. Propofol will be used for ventilatory sedation. I will start fentanyl IV 75 mcg every 2 hours as needed for pain or obvious discomfort. Additionally I will add metoprolol 5 mg IV every 4 hours as needed tachycardia ( as I would expect he will develop his tachycardia again when rocuronium is withdrawn). I have personally evaluated his chest x-ray and note that his pulmonary hyperinflation is persistent with no evidence of infiltrate or pleural effusions. His CBC shows a stable hemoglobin and an elevation of his white blood count 18,000, but the leukocytosis is most likely due to steroid therapy as is the mild hyperglycemia noted on his metabolic profile. We will continue to obtain daily chest x-rays while he is on ventilator and I will continue to review them each day that I am providing his care. We will continue to provide IV steroids and after discussion with Dr. Fish we will also treat him with IV antibiotics as his course has not been as expected with steady improvement in his pulmonary function to the point where he could be extubated. My review of previous records shows that in the past he has had similar episodes but has generally been able to be taken off interventional respiratory support after approximately 1-2 days. On examination today his wheezing is somewhat decreased in volume and with reduced prolongation of his expiratory phase the wheezing cycle is shorter, thus clinical exam would indicate overall improvement as what his arterial blood gases which showed improvement in his pH and a reduction in his PCO2. IV fluids will be continued at a maintenance rate of 125 mL/h as the patient's urine output has significantly improved. 12/07/17: Reynold appears significantly improved today as he has significantly better chest rise with breathing and shows improved breath sounds in all lung weldon although he still has a somewhat prolonged expiration phase and a medium pitched wheezes throughout expiration. His blood gases are significantly improved with a pH of 7.38 PCO2 of 44.6 and a PO2 of 70.1 on 40% FiO2. His CBC shows a drop in his white blood count down to 10,600 and his basic metabolic profile is essentially normal. His chest x-ray shows no significant changes on today's evaluation as the previously noted hyperinflation persists. There are no other abnormalities on the chest x-ray to my evaluation. Patient's output continues to be adequate and his vital signs have been normal without tachycardia hypertension or hypotension most part over the last 12 hours. I would anticipate if the patient continues improvement as he is doing at present he will be extubated within the next 24-48 hours. Reason For Visit: ACUTE RESPIRATORY DISTRESS Physical Exam Vital Signs: Temp Pulse Resp BP Pulse Ox 98.2 F 59 L 24 H 129/81 H 96 12/07/17 16:00 12/07/17 16:00 12/07/17 16:00 12/07/17 16:00 12/07/17 16:24 Intake & Output 12/05/17 12/06/17 12/07/17 23:59 23:59 23:59 Intake Total 6472 4260 2446 Output Total 3400 3175 2125 Balance 3072 1085 321 Weight 87.5 kg 90.8 kg 91.6 kg Results Laboratory Results: 12/07/17 03:45 12/07/17 03:45 12/06/17 12/07/17 12/07/17 18:45 03:45 03:45 WBC 10.6 H RBC 4.27 L Hgb 12.9 L Hct 37.5 L MCV 88 MCH 30.2 MCHC 34.4 RDW 14.0 Plt Count 158 Seg Neutrophils % Not Reportable Lymphocytes % Not Reportable Monocytes % Not Reportable Eosinophils % Not Reportable Basophils % Not Reportable Absolute Neutrophils Not Reportable Absolute Lymphocytes Not Reportable Absolute Monocytes Not Reportable Absolute Eosinophils Not Reportable Absolute Basophils Not Reportable Carbonic Acid HCO3/H2CO3 Ratio ABG pH ABG pCO2 ABG pO2 ABG HCO3 ABG O2 Saturation ABG Base Excess FiO2 Sodium 140.4 142.9 Potassium 4.9 4.7 Chloride 106 108 H Carbon Dioxide 30 28 Anion Gap 5 7 BUN 18 20 Creatinine 0.92 0.84 Est GFR ( Amer) > 60 > 60 Est GFR (Non-Af Amer) > 60 > 60 Glucose 140 H 135 H Calcium 9.0 8.8 Magnesium 2.6 H 2.7 H Total Bilirubin 0.4 AST 33 ALT 37 Alkaline Phosphatase 66 Total Protein 5.5 L Albumin 3.1 L 12/07/17 05:30 WBC RBC Hgb Hct MCV MCH MCHC RDW Plt Count Seg Neutrophils % Lymphocytes % Monocytes % Eosinophils % Basophils % Absolute Neutrophils Absolute Lymphocytes Absolute Monocytes Absolute Eosinophils Absolute Basophils Carbonic Acid 1.34 HCO3/H2CO3 Ratio 19:1 ABG pH 7.38 ABG pCO2 44.6 ABG pO2 71.1 L ABG HCO3 25.9 H ABG O2 Saturation 94.0 ABG Base Excess 0.5 FiO2 40% Sodium Potassium Chloride Carbon Dioxide Anion Gap BUN Creatinine Est GFR ( Amer) Est GFR (Non-Af Amer) Glucose Calcium Magnesium Total Bilirubin AST ALT Alkaline Phosphatase Total Protein Albumin 12/04/17 06:11 Tracheal Aspirate Gram Stain - Final 12/04/17 06:11 Tracheal Aspirate Sputum Culture - Final NORMAL PAOLO Impressions: Abdomen/Pelvis CT 12/06/17 00:00 IMPRESSION: 1. Borderline hepatomegaly. Periportal lucencies. The findings could be seen with congestive failure hepatitis, or cholangitis 2. Abdominal and pelvic ascites. Chest/Abdomen CTA 12/06/17 10:33 IMPRESSION: 1. Ground-glass infiltrate right upper lobe and right 0 which could represent pneumonia. Endobronchial secretions node with in the lower lobes bilaterally. No pulmonary embolus. 2. Ascites. Chest X-Ray 12/07/17 06:00 IMPRESSION: NO ACUTE RADIOGRAPHIC FINDING IN THE CHEST. Assessment & Plan - Diagnosis (1) Status asthmaticus Qualifiers: Asthma severity: severe Asthma persistence: persistent Qualified Code(s) : J45.52 - Severe persistent asthma with status asthmaticus Is this a current diagnosis for this admission?: Yes (2) Acute hypercapnic respiratory failure Is this a current diagnosis for this admission?: Yes Plan: Patient has been intubated and is on ventilatory support which will be managed by Dr. Fish, the entry driver operator. His hypercapnia and acidosis have essentially resolved at this point with ventillatory support. Ventilatory support will continue until such time as he has significant improvement in his respiratory status but he may be extubated. His respiratory status will continue to be monitored throughout his entire hospital course. On the 2017 evaluation of blood gases the patient was noted to have a PCO2 of 44.7 and a pH of 7.38 with a PO2 of 71.7. Therefore his hypercapnia has resolved although he remains intubated and on the ventilator with an FiO2 of 40%. His ABGs will be repeated in the morning as well his CBC and chest x-ray. (3) Tachycardia Is this a current diagnosis for this admission?: Yes Plan: Kiet has had a moderate tachycardia since his admission, however his tachycardia was significantly reduced when he was placed on a rocuronium infusion. The few episodes of tachycardia that he has had, prior to the discontinuation of his rocuronium infusion today, were resolved with IV fentanyl and were felt to be associated with the patient's discomfort due to intubation and ventilation requiring sedation and paralysis. The etiology of the tachycardia is probably multifactorial including beta agonist drugs, anxiety associated with respiratory distress, hypovolemia and possible substances of abuse. His tachycardia will most likely recur when he is taken off rocuronium and it will be treated with metoprolol 5 mg IV every 4 hours as needed heart rate greater than 110. As of the morning of 12/07/2017 patient's tachycardia has been resolved utilizing 5 mg of metoprolol IV every 4 hours as needed for control of tachycardia or hypertension. (4) Leukocytosis Qualifiers: Leukocytosis type: unspecified Qualified Code(s): D72.829 - Elevated white blood cell count, unspecified Is this a current diagnosis for this admission?: Yes Plan: Patient has been noted to have a leukocytosis that has increased since admission. This is most likely due to the use of steroid therapy. This will be observed throughout the remainder of his hospital course with daily laboratory evaluations and will most likely need to be followed at his post hospital evaluations with his primary care provider. As of 12/07/2017 patient's white blood count dropped to 10,600 and will be followed on a daily basis. - Time Time Spent with patient: 25-34 minutes Anticipated discharge: Home
--- NOTE | 2017-12-07 20:43 | RADIOLOGY REPORT (SQ) ---
EXAM DESCRIPTION: CHEST SINGLE VIEW COMPLETED DATE/TIME: 12/07/2017 8:27 pm REASON FOR STUDY: patient re-intubated COMPARISON: AP chest 12/07/2017, 0610 hours EXAM PARAMETERS: NUMBER OF VIEWS: One view. TECHNIQUE: Single frontal radiographic view of the chest acquired. RADIATION DOSE: NA LIMITATIONS: None. FINDINGS: The endotracheal tube tip is above the clavicular heads, 7 cm above the gabi. This repo rt was called to the patient's nurse in ICU, 2030 hours 12/07/2017. LUNGS AND PLEURA: No opacities, masses or pneumothorax. No pleural effusion. MEDIASTINUM AND HILAR STRUCTURES: No masses. Contour normal. HEART AND VASCULAR STRUCTURES: Heart normal in size. Normal vasculature. BONES: No acute findings. HARDWARE: Nasogastric tube tip and side port in the stomach OTHER: No other significant finding. IMPRESSION: The endotracheal tube tip is above the clavicular heads, 7 cm above the gabi. This re port was called to the patient's nurse in ICU, 2030 hours 12/07/2017. TECHNICAL DOCUMENTATION: JOB ID: [id number] [employer]- All Rights Reserved Reading location - IP/workstation name: [email or web address]
[2017-12-07 21:16] LABS: ARTERIAL BLOOD BASE EXCESS 3.4 mmol/L; ARTERIAL BLOOD H2CO3 1.37 mmol/L (1.05-1.35); ARTERIAL BLOOD HCO3 28.6 mmol/L (20-24); ARTERIAL BLOOD O2 SATURATION 93.9 % (94-98); ARTERIAL BLOOD PCO2 45.6 mmHg (35-45); ARTERIAL BLOOD PH 7.42 (7.35-7.45); ARTERIAL BLOOD PO2 68.9 mmHg (80-100)
[2017-12-07 21:20] LABS: ARTERIAL BLOOD FIO2 40%
[2017-12-07] MEDS: MIDAZOLAM HCL 50 MG/100 ML RTUINJ IV PRN (22:09)
[2017-12-08] MEDS: METHYLPREDNISOLONE INJ 40 MG/1 ML SDV IV SCH ×5 (00:54→23:37)
[2017-12-08] MEDS: CEFEPIME 2 GM/D5W RTU 2 GM/50 ML RTUPB IV SCH ×3 (00:54→22:34)
[2017-12-08] MEDS: POTASSI CL 20 MEQ/D5-1/2NS 1L 1000 ML IV PRN ×2 (00:54→10:11)
[2017-12-08] MEDS: MIDAZOLAM HCL 50 MG/100 ML RTUINJ IV PRN ×6 (01:25→22:27)
[2017-12-08] MEDS: FENTANYL CITRATE INJ/PF 100 MCG/2 ML AMPUL IV PRN ×7 (02:10→23:34)
[2017-12-08] MEDS: IPRATROPIUM/ALBUTEROL 0.5-2.5 MG/3 ML AMPUL NEB SCH ×4 (02:16→20:35)
[2017-12-08] MEDS: VANCOMYCIN HCL 1,250 MG in DEXTROSE 5%-WATER 250 ML IV SCH ×4 (02:34→21:05)
[2017-12-08] MEDS: SUCRALFATE SUSP 1 GM/10 ML UDCUP PO SCH ×4 (02:34→21:05)
[2017-12-08 03:50] LABS: ABSOLUTE LYMPHOCYTES (AUTO) 0.7 10^3/uL (0.5-4.7); ABSOLUTE MONOCYTES (AUTO) 0.6 10^3/uL (0.1-1.4); ABSOLUTE NEUT (AUTO) 8.9 10^3/uL (1.7-8.2); BASOPHILS % (AUTO) 0.1 % (0-2); EOSINOPHILS % (AUTO) 0.1 % (0-6); HEMOGLOBIN 14.2 g/dL (13.5-17.0); LYMPHOCYTES % (AUTO) 6.9 % (13-45); MEAN CORPUSCULAR HEMOGLOBIN 29.9 pg (27.0-33.4); MEAN CORPUSCULAR HGB CONC 34.5 g/dL (32.0-36.0); MEAN CORPUSCULAR VOLUME 87 fl (80-97); MONOCYTES % (AUTO) 6.1 % (3-13); PLATELET COUNT 123 10^3/uL (150-450); RED BLOOD COUNT 4.73 10^6/uL (4.35-5.55); RED CELL DISTRIBUTION WIDTH 13.8 % (11.5-14.0); SEGMENTED NEUTROPHILS % (AUTO) 86.8 % (42-78); TOTAL CELLS COUNTED % (AUTO) 100 %; WHITE BLOOD COUNT 10.3 10^3/uL (4.0-10.5)
[2017-12-08 04:06] LABS: ANION GAP 8 (5-19); BLOOD UREA NITROGEN 27 mg/dL (7-20); CARBON DIOXIDE 26 mmol/L (22-30); CHLORIDE 109 mmol/L (98-107); GLUCOSE 131 mg/dL (75-110); PHOSPHORUS 3.3 mg/dL (2.5-4.5); POTASSIUM 4.4 mmol/L (3.6-5.0); SODIUM 143.2 mmol/L (137-145)
[2017-12-08 04:27] LABS: ARTERIAL BLOOD BASE EXCESS 3.6 mmol/L; ARTERIAL BLOOD HCO3 28.3 mmol/L (20-24); ARTERIAL BLOOD PCO2 43.3 mmHg (35-45); ARTERIAL BLOOD PH 7.43 (7.35-7.45); ARTERIAL BLOOD PO2 72.6 mmHg (80-100); ARTERIAL BLOOD TOTAL CO2 29.6 mmol/L (23-27)
[2017-12-08 05:02] LABS: ARTERIAL BLOOD FIO2 40%
--- NOTE | 2017-12-08 07:07 | RADIOLOGY REPORT (SQ) ---
EXAM DESCRIPTION: X-ray single view chest. CLINICAL HISTORY: 27 years Male, resp failure, patient re-intubated COMPARISON: 12/07/2017 TECHNIQUE: Single portable view of the chest performed on 12/08/2017 at 6:31 AM FINDINGS: The lungs are well expanded and are clear. There is no evidence of a pneumothorax. The cardiac silhouette is normal in size and configuration. The mediastinal contours are normal. No acute osseous abnormality is identified. No focal soft tissue abnormalities are seen. Lines and tubes: The tip of the endotracheal tube terminates just below the clavicular heads. The feeding tube tip projects over the left upper quadrant in the region of the stomach. IMPRESSION: 1. The tip of the endotracheal tube terminates just below the clavicular heads. 2. The tip of the feeding tube projects over the left upper quadrant in the region of the stomach. 3. No acute intrathoracic disease.
[2017-12-08] MEDS: BUDESONIDE NEB 0.5 MG/2 ML AMPUL NEB SCH ×2 (08:27→20:35)
[2017-12-08] MEDS: ACETYLCYSTEINE 20% SOLN 800 MG/4 ML VIAL.NEB NEB SCH ×2 (08:27→20:35)
[2017-12-08] MEDS: MONTELUKAST SODIUM 10 MG TABLET GT SCH (10:02)
[2017-12-08] MEDS: FAMOTIDINE INJ/PF 20 MG/2 ML SDV IV SCH ×2 (10:02→21:17)
[2017-12-08] MEDS: DOCUSATE SODIUM 100 MG/10 ML UDC PO SCH (10:02)
[2017-12-08] MEDS: ENOXAPARIN SODIUM INJ 40 MG/0.4 ML DISP.SYRIN SUBCUT SCH (10:04)
[2017-12-08] MEDS: LEVOFLOXACIN 750 MG/D5W RTU 750 MG/150 ML RTUPB IV SCH (11:27)
--- NOTE | 2017-12-08 13:11 | PDOC PROGRESS REPORT ---
Subjective Progress Note for:: 12/08/17 Subjective:: Proving Reason For Visit: ACUTE RESPIRATORY DISTRESS Physical Exam Vital Signs: Temp Pulse Resp BP Pulse Ox 97.9 F 50 L 13 132/87 H 94 12/08/17 07:34 12/08/17 08:00 12/08/17 05:00 12/08/17 05:04 12/08/17 06:00 Intake & Output 12/07/17 12/08/17 12/09/17 06:59 06:59 06:59 Intake Total 3191 3578 Output Total 3305 2975 100 Balance -114 603 -100 Weight 91.6 kg 90.9 kg General appearance: PRESENT: no acute distress, disheveled, well-developed, well -nourished Head exam: PRESENT: atraumatic, normocephalic Eye exam: PRESENT: conjunctiva pale. ABSENT: nystagmus, scleral icterus Mouth exam: PRESENT: dry mucosa, neck supple, tongue midline, other - ET tube in place Neck exam: ABSENT: carotid bruit, JVD, lymphadenopathy, thyromegaly, tracheal deviation, tracheostomy Respiratory exam: PRESENT: decreased breath sounds, prolonged expiratory phas, rhonchi, tachypnea, unlabored, wheezes. ABSENT: retraction, stridor Cardiovascular exam: PRESENT: RRR, +S1, +S2 Pulses: PRESENT: normal radial pulses GI/Abdominal exam: PRESENT: soft. ABSENT: tenderness Gentrourinary exam: PRESENT: indwelling catheter Extremities exam: PRESENT: pedal edema. ABSENT: calf tenderness, clubbing, joint swelling Musculoskeletal exam: ABSENT: deformity, dislocation Neurological exam: PRESENT: awake. ABSENT: oriented to person Skin exam: PRESENT: dry, warm Results Laboratory Results: 12/08/17 03:42 12/08/17 03:42 12/07/17 12/08/17 12/08/17 21:00 03:42 03:42 WBC 10.3 RBC 4.73 Hgb 14.2 Hct 41.0 MCV 87 MCH 29.9 MCHC 34.5 RDW 13.8 Plt Count 123 L Seg Neutrophils % 86.8 H Lymphocytes % 6.9 L Monocytes % 6.1 Eosinophils % 0.1 Basophils % 0.1 Absolute Neutrophils 8.9 H Absolute Lymphocytes 0.7 Absolute Monocytes 0.6 Absolute Eosinophils 0.0 Absolute Basophils 0.0 Carbonic Acid 1.37 H HCO3/H2CO3 Ratio 20:1 ABG pH 7.42 ABG pCO2 45.6 H ABG pO2 68.9 L ABG HCO3 28.6 H ABG O2 Saturation 93.9 L ABG Base Excess 3.4 FiO2 40% Sodium 143.2 Potassium 4.4 Chloride 109 H Carbon Dioxide 26 Anion Gap 8 BUN 27 H Creatinine 0.75 Est GFR ( Amer) > 60 Est GFR (Non-Af Amer) > 60 Glucose 131 H Calcium 9.0 Phosphorus 3.3 Magnesium 2.5 H 12/08/17 04:20 WBC RBC Hgb Hct MCV MCH MCHC RDW Plt Count Seg Neutrophils % Lymphocytes % Monocytes % Eosinophils % Basophils % Absolute Neutrophils Absolute Lymphocytes Absolute Monocytes Absolute Eosinophils Absolute Basophils Carbonic Acid 1.30 HCO3/H2CO3 Ratio 21:1 ABG pH 7.43 ABG pCO2 43.3 ABG pO2 72.6 L ABG HCO3 28.3 H ABG O2 Saturation 95.0 ABG Base Excess 3.6 FiO2 40% Sodium Potassium Chloride Carbon Dioxide Anion Gap BUN Creatinine Est GFR ( Amer) Est GFR (Non-Af Amer) Glucose Calcium Phosphorus Magnesium Impressions: Abdomen/Pelvis CT 12/06/17 00:00 IMPRESSION: 1. Borderline hepatomegaly. Periportal lucencies. The findings could be seen with congestive failure hepatitis, or cholangitis 2. Abdominal and pelvic ascites. Chest/Abdomen CTA 12/06/17 10:33 IMPRESSION: 1. Ground-glass infiltrate right upper lobe and right 0 which could represent pneumonia. Endobronchial secretions node with in the lower lobes bilaterally. No pulmonary embolus. 2. Ascites. Chest X-Ray 12/08/17 06:00 IMPRESSION: 1. The tip of the endotracheal tube terminates just below the clavicular heads. 2. The tip of the feeding tube projects over the left upper quadrant in the region of the stomach. 3. No acute intrathoracic disease. Assessment & Plan - Diagnosis (1) Status asthmaticus Qualifiers: Asthma severity: severe Asthma persistence: persistent Qualified Code(s) : J45.52 - Severe persistent asthma with status asthmaticus Is this a current diagnosis for this admission?: Yes Plan: Improving FiO2 down airway pressures diminished continue current Rx (2) Acute hypercapnic respiratory failure Is this a current diagnosis for this admission?: Yes Plan: Improved - Time Total Critical Time (Minutes): 40
[2017-12-08] MEDS: PROPOFOL 1,000 MG/100 ML INFUS..BTL IV PRN (14:18)
--- NOTE | 2017-12-08 16:47 | PDOC PROGRESS REPORT ---
Subjective Progress Note for:: 12/08/17 Subjective:: KIET RAMOS is a 27 year old male who presented to the emergency room with a 2-day history of progressively worsening dyspnea with wheezing. He has a known past medical history of poorly controlled asthma requiring hospitalization and intubation in past. He admitted that his dyspnea had worsened over the 12 hours prior to his presentation to the point where it had become extremely severe and he called for the ambulance himself. Upon arrival to the emergency department he was found to be diaphoretic with increased work of breathing and severely tachypneic which resulted in his intubation by the ED physician. 12/04/17: Mr. Ramos is seen today in the ICU. He is currently sedated and intubated on a ventilator for respiratory support. His records have been reviewed and his medications and treatments have been noted. Pulmonology is consulting and performing ventilator management. He is stable and somewhat improved on the ventilator today. Bolus doses of IV Solu-Medrol with an initial dose of 125 mg followed by 40 mg every 8 hours are ordered. An aggressive pulmonary toilet was ordered by the beer brewer. 12/05/17: Mr. Ramos is again seen in the ICU intubated and on a ventilator with respiratory support. His blood gases were improved today and he has been able to tolerate a decrease in his FiO2 down to 35%. He has been able to maintain a good oxygen saturation following this change. Pulmonology has also changed some of his paralytics and sedatives as well as analgesics to help to alleviate the rather chronic hypotension and tachycardia. He has been receiving large fluid volume and his urine output has improved since his Pedro catheter which was apparently obstructed with urinary sediment was changed. His examination today shows a significant improvement in air movement throughout his chest and this has resulted in increased wheezing specifically because the air movement is substantially improved there is a significant prolongation of his expiratory phase and this will hopefully correct as his IV steroids are continued. As his bronchoconstriction is reduced he will be more able to be taken off of ventilatory support. IV fluids will be continued at 167 mL/h and daily laboratory evaluations will be continued. 12/06/17: Reynold continues to require intubation and respiratory support and has actually had somewhat of a decrease in his respiratory function overnight currently requiring 100% FiO2. For this reason after personally discussing the case with his Dr. Fish (pulmonology) we have agreed that discontinuation of ketamine would be a good plan and also reduction in his rocuronium infusion would be desirable. Propofol will be used for ventilatory sedation. I will start fentanyl IV 75 mcg every 2 hours as needed for pain or obvious discomfort. Additionally I will add metoprolol 5 mg IV every 4 hours as needed tachycardia ( as I would expect he will develop his tachycardia again when rocuronium is withdrawn). I have personally evaluated his chest x-ray and note that his pulmonary hyperinflation is persistent with no evidence of infiltrate or pleural effusions. His CBC shows a stable hemoglobin and an elevation of his white blood count 18,000, but the leukocytosis is most likely due to steroid therapy as is the mild hyperglycemia noted on his metabolic profile. We will continue to obtain daily chest x-rays while he is on ventilator and I will continue to review them each day that I am providing his care. We will continue to provide IV steroids and after discussion with Dr. Fish we will also treat him with IV antibiotics as his course has not been as expected with steady improvement in his pulmonary function to the point where he could be extubated. My review of previous records shows that in the past he has had similar episodes but has generally been able to be taken off interventional respiratory support after approximately 1-2 days. On examination today his wheezing is somewhat decreased in volume and with reduced prolongation of his expiratory phase the wheezing cycle is shorter, thus clinical exam would indicate overall improvement as what his arterial blood gases which showed improvement in his pH and a reduction in his PCO2. IV fluids will be continued at a maintenance rate of 125 mL/h as the patient's urine output has significantly improved. 12/07/17: Reynold appears significantly improved today as he has significantly better chest rise with breathing and shows improved breath sounds in all lung weldon although he still has a somewhat prolonged expiration phase and a medium pitched wheezes throughout expiration. His blood gases are significantly improved with a pH of 7.38 PCO2 of 44.6 and a PO2 of 70.1 on 40% FiO2. His CBC shows a drop in his white blood count down to 10,600 and his basic metabolic profile is essentially normal. His chest x-ray shows no significant changes on today's evaluation as the previously noted hyperinflation persists. There are no other abnormalities on the chest x-ray to my evaluation. Patient's output continues to be adequate and his vital signs have been normal without tachycardia hypertension or hypotension most part over the last 12 hours. I would anticipate if the patient continues improvement as he is doing at present he will be extubated within the next 24-48 hours. 12/08/17: Reynold's status continues improving and he will most likely be extubated tomorrow. His expiratory phase has returned to normal duration and his wheezes are very faint in all weldon. There is excellent air motion in the lungs with ventilation. His ABG showed a pH of 7.43 with a normal PCO2 and a slightly depressed PO2 of 72 on 40% FiO2. His urine output has remained good and he has had no further difficulty with hypertension, hypotension or tachycardia. His CBC is essentially normal with the exception of a slightly depressed platelet count 125,000 and his BMP is essentially normal with the exception of a BUN 27. His chest x-ray shows no acute cardiopulmonary disease but his pulmonary hyperinflation is persistent. His tracheal tube is noted to be slightly higher in position than on previous films. I do not plan to change patient's medications or treatments today. Reason For Visit: ACUTE RESPIRATORY DISTRESS Physical Exam Vital Signs: Temp Pulse Resp BP Pulse Ox 97.7 F 75 17 125/72 95 12/08/17 15:51 12/08/17 13:59 12/08/17 14:05 12/08/17 14:05 12/08/17 14:05 Intake & Output 12/06/17 12/07/17 12/08/17 23:59 23:59 23:59 Intake Total 4260 3969 1917 Output Total 3175 3160 2065 Balance 1085 809 -148 Weight 90.8 kg 91.6 kg 90.9 kg General appearance: PRESENT: well-developed, well-nourished, other - Intubated and sedated for ventilation. Head exam: PRESENT: atraumatic, normocephalic Eye exam: ABSENT: conjunctival injection, periorbital swelling, scleral icterus Ear exam: PRESENT: normal external ear exam. ABSENT: drainage Mouth exam: PRESENT: neck supple, tongue midline, other - ET tube in good position Neck exam: ABSENT: thyromegaly, tracheal deviation Respiratory exam: PRESENT: symmetrical, wheezes - Minimal expiratory wheezes noted., other - Intubated and on mechanical ventilation Cardiovascular exam: PRESENT: RRR. ABSENT: clicks, diastolic murmur, gallop, rubs, systolic murmur Vascular exam: PRESENT: normal capillary refill. ABSENT: pallor GI/Abdominal exam: PRESENT: normal bowel sounds, soft Rectal exam: PRESENT: deferred - [id number] Extremities exam: ABSENT: joint swelling, pedal edema Musculoskeletal exam: ABSENT: ambulatory, deformity, dislocation Neurological exam: PRESENT: other - Intubated on and on mechanical ventilation requiring sedation thus significantly impairing exam Psychiatric exam: PRESENT: other - [id number] for ventilation thus precluding exam Skin exam: ABSENT: jaundice, rash, urticaria Results Laboratory Results: 12/08/17 03:42 12/08/17 03:42 12/07/17 12/08/17 12/08/17 21:00 03:42 03:42 WBC 10.3 RBC 4.73 Hgb 14.2 Hct 41.0 MCV 87 MCH 29.9 MCHC 34.5 RDW 13.8 Plt Count 123 L Seg Neutrophils % 86.8 H Lymphocytes % 6.9 L Monocytes % 6.1 Eosinophils % 0.1 Basophils % 0.1 Absolute Neutrophils 8.9 H Absolute Lymphocytes 0.7 Absolute Monocytes 0.6 Absolute Eosinophils 0.0 Absolute Basophils 0.0 Carbonic Acid 1.37 H HCO3/H2CO3 Ratio 20:1 ABG pH 7.42 ABG pCO2 45.6 H ABG pO2 68.9 L ABG HCO3 28.6 H ABG O2 Saturation 93.9 L ABG Base Excess 3.4 FiO2 40% Sodium 143.2 Potassium 4.4 Chloride 109 H Carbon Dioxide 26 Anion Gap 8 BUN 27 H Creatinine 0.75 Est GFR ( Amer) > 60 Est GFR (Non-Af Amer) > 60 Glucose 131 H Calcium 9.0 Phosphorus 3.3 Magnesium 2.5 H 12/08/17 04:20 WBC RBC Hgb Hct MCV MCH MCHC RDW Plt Count Seg Neutrophils % Lymphocytes % Monocytes % Eosinophils % Basophils % Absolute Neutrophils Absolute Lymphocytes Absolute Monocytes Absolute Eosinophils Absolute Basophils Carbonic Acid 1.30 HCO3/H2CO3 Ratio 21:1 ABG pH 7.43 ABG pCO2 43.3 ABG pO2 72.6 L ABG HCO3 28.3 H ABG O2 Saturation 95.0 ABG Base Excess 3.6 FiO2 40% Sodium Potassium Chloride Carbon Dioxide Anion Gap BUN Creatinine Est GFR ( Amer) Est GFR (Non-Af Amer) Glucose Calcium Phosphorus Magnesium Impressions: Abdomen/Pelvis CT 12/06/17 00:00 IMPRESSION: 1. Borderline hepatomegaly. Periportal lucencies. The findings could be seen with congestive failure hepatitis, or cholangitis 2. Abdominal and pelvic ascites. Chest/Abdomen CTA 12/06/17 10:33 IMPRESSION: 1. Ground-glass infiltrate right upper lobe and right 0 which could represent pneumonia. Endobronchial secretions node with in the lower lobes bilaterally. No pulmonary embolus. 2. Ascites. Chest X-Ray 12/08/17 06:00 IMPRESSION: 1. The tip of the endotracheal tube terminates just below the clavicular heads. 2. The tip of the feeding tube projects over the left upper quadrant in the region of the stomach. 3. No acute intrathoracic disease. Assessment & Plan - Diagnosis (1) Status asthmaticus Qualifiers: Asthma severity: severe Asthma persistence: persistent Qualified Code(s) : J45.52 - Severe persistent asthma with status asthmaticus Is this a current diagnosis for this admission?: Yes Plan: Patient will be maintained on ventilatory support via endotracheal intubation, with appropriate sedation/paralytic drugs, until such time as he can be weaned from support at the direction of Dr. Fish, the pulmonary sourcing consultant. He will in the meantime be treated with a very aggressive pulmonary toilet utilizing DuoNeb every 6 hours and budesonide every 12 hours and will additionally be given intravenous steroids with Solu-Medrol 125 mg IV stat followed by 40 mg IV every 8 hours until discontinued. IV fluid support maintenance will be continued until he is able to be awake and alert and eat and drink without respiratory difficulty. Daily chest x-rays, ABGs, CBCs and BMP's will be obtained to follow and manage the patient's care while he is intubated and in the post intubation period. (2) Acute hypercapnic respiratory failure Is this a current diagnosis for this admission?: Yes Plan: Patient has been intubated and is on ventilatory support which will be managed by Dr. Fish, the beer brewer. His hypercapnia and acidosis have essentially resolved at this point with ventillatory support. Ventilatory support will continue until such time as he has significant improvement in his respiratory status but he may be extubated. His respiratory status will continue to be monitored throughout his entire hospital course. On the 2017 evaluation of blood gases the patient was noted to have a PCO2 of 44.7 and a pH of 7.38 with a PO2 of 71.7. His blood gases on 12/08/17 were very similar with normal pH and a normal PCO2 and a modestly depressed PO2. Therefore his hypercapnia has resolved although he remains intubated and on the ventilator with an FiO2 of 40%. His x-ray findings have been consistent showing only the bilateral hyperinflation typical of his COPD exacerbation. His ABGs will be repeated in the morning as well his CBC and chest x-ray. (3) Tachycardia Is this a current diagnosis for this admission?: Yes Plan: Kiet has had a moderate tachycardia on admission, however his tachycardia was significantly reduced when he was placed on a rocuronium infusion. The few episodes of tachycardia that he has had, prior to the discontinuation of his rocuronium infusion today, were resolved with IV fentanyl and were felt to be associated with the patient's discomfort due to intubation and ventilation requiring sedation and paralysis. The etiology of the tachycardia was probably multifactorial including beta agonist drugs, anxiety associated with respiratory distress, hypovolemia and possible substances of abuse. His tachycardia will most likely recur when he is taken off rocuronium and it will be treated with metoprolol 5 mg IV every 4 hours as needed heart rate greater than 110. As of the morning of 12/07/2017 patient's tachycardia has been resolved utilizing 5 mg of metoprolol IV every 4 hours as needed for control of tachycardia or hypertension. 12/08/17: Kiet has remained in normal sinus rhythm without tachycardia with continued as needed use of metoprolol 5 mg every 4 hours. Once he has been extubated this can be further evaluated to determine if the tachycardia is going to persist once he is off ventilatory support or if it will be resolved at that point. Should he continue to have tachycardia and oral beta-2 selective agent would be appropriate to control the tachycardia and any hypertension associated with it. (4) Leukocytosis Qualifiers: Leukocytosis type: unspecified Qualified Code(s): D72.829 - Elevated white blood cell count, unspecified Is this a current diagnosis for this admission?: Yes Plan: Patient has been noted to have a leukocytosis that has increased since admission. This is most likely due to the use of steroid therapy. This will be observed throughout the remainder of his hospital course with daily laboratory evaluations and will most likely need to be followed at his post hospital evaluations with his primary care provider. As of 12/07/2017 patient's white blood count dropped to 10,600 and will be followed on a daily basis. 12/08/17: Patient's leukocytosis remains resolved with a normal white count on his CBC again today. - Time Time Spent with patient: 35 or more minutes Anticipated discharge: Home
[2017-12-09] MEDS: FENTANYL CITRATE INJ/PF 100 MCG/2 ML AMPUL IV PRN ×2 (01:40→06:34)
[2017-12-09] MEDS: MIDAZOLAM HCL 50 MG/100 ML RTUINJ IV PRN ×2 (01:43→05:07)
[2017-12-09] MEDS: IPRATROPIUM/ALBUTEROL 0.5-2.5 MG/3 ML AMPUL NEB SCH ×4 (02:05→19:48)
[2017-12-09] MEDS: VANCOMYCIN HCL 1,250 MG in DEXTROSE 5%-WATER 250 ML IV SCH ×4 (02:25→22:20)
[2017-12-09] MEDS: SUCRALFATE SUSP 1 GM/10 ML UDCUP PO SCH ×4 (02:26→22:20)
[2017-12-09] MEDS: POTASSI CL 20 MEQ/D5-1/2NS 1L 1000 ML IV PRN ×2 (02:26→17:44)
[2017-12-09 04:02] LABS: ABSOLUTE LYMPHOCYTES (AUTO) 0.8 10^3/uL (0.5-4.7); ABSOLUTE MONOCYTES (AUTO) 0.7 10^3/uL (0.1-1.4); ABSOLUTE NEUT (AUTO) 7.5 10^3/uL (1.7-8.2); BASOPHILS % (AUTO) 0.1 % (0-2); HEMOGLOBIN 12.5 g/dL (13.5-17.0); LYMPHOCYTES % (AUTO) 8.5 % (13-45); MEAN CORPUSCULAR HEMOGLOBIN 30.2 pg (27.0-33.4); MEAN CORPUSCULAR HGB CONC 34.7 g/dL (32.0-36.0); MEAN CORPUSCULAR VOLUME 87 fl (80-97); MONOCYTES % (AUTO) 7.6 % (3-13); PLATELET COUNT 141 10^3/uL (150-450); RED BLOOD COUNT 4.13 10^6/uL (4.35-5.55); RED CELL DISTRIBUTION WIDTH 13.6 % (11.5-14.0); SEGMENTED NEUTROPHILS % (AUTO) 83.8 % (42-78); TOTAL CELLS COUNTED % (AUTO) 100 %
[2017-12-09 04:13] LABS: BLOOD UREA NITROGEN 23 mg/dL (7-20); CALCIUM 8.6 mg/dL (8.4-10.2); GLUCOSE 139 mg/dL (75-110); POTASSIUM 4.2 mmol/L (3.6-5.0)
[2017-12-09 04:19] LABS: CARBON DIOXIDE 29 mmol/L (22-30); CHLORIDE 108 mmol/L (98-107)
[2017-12-09 04:21] LABS: ANION GAP 4 (5-19)
[2017-12-09] MEDS: METHYLPREDNISOLONE INJ 40 MG/1 ML SDV IV SCH ×3 (05:09→17:30)
--- NOTE | 2017-12-09 06:22 | RADIOLOGY REPORT (SQ) ---
CLINICAL HISTORY: resp fail COMPARISON: December 08, 2017. TECHNIQUE: XR CHEST 1 VIEW 12/09/2017 6:00 AM CDT FINDINGS: Cardiac silhouette is normal in size. Lungs are clear without consolidation, atelectasis, mass or edema. There is no pleural effusion. There is no pneumothorax. There are no acute osseous findings. Endotracheal tube and nasogastric tube are unchanged. IMPRESSION: No change.
[2017-12-09] MEDS: ACETYLCYSTEINE 20% SOLN 800 MG/4 ML VIAL.NEB NEB SCH ×2 (07:59→19:48)
[2017-12-09] MEDS: BUDESONIDE NEB 0.5 MG/2 ML AMPUL NEB SCH ×2 (08:00→19:48)
[2017-12-09 08:15] LABS: ARTERIAL BLOOD BASE EXCESS 2.5 mmol/L; ARTERIAL BLOOD FIO2 40%; ARTERIAL BLOOD H2CO3 1.08 mmol/L (1.05-1.35); ARTERIAL BLOOD HCO3 25.8 mmol/L (20-24); ARTERIAL BLOOD O2 SATURATION 88.4 % (94-98); ARTERIAL BLOOD PH 7.47 (7.35-7.45); ARTERIAL BLOOD PO2 50.6 mmHg (80-100)
[2017-12-09] MEDS: ENOXAPARIN SODIUM INJ 40 MG/0.4 ML DISP.SYRIN SUBCUT SCH (09:16)
[2017-12-09] MEDS: FAMOTIDINE INJ/PF 20 MG/2 ML SDV IV SCH ×2 (09:17→22:20)
[2017-12-09] MEDS: MONTELUKAST SODIUM 10 MG TABLET GT SCH (09:17)
[2017-12-09] MEDS: DOCUSATE SODIUM 100 MG/10 ML UDC PO SCH (09:20)
[2017-12-09] MEDS: DEXAMETHASONE SOD PHOSPHATE INJ 4 MG/1 ML VIAL ONE ×2 (09:51→15:36)
[2017-12-09] MEDS: CEFEPIME 2 GM/D5W RTU 2 GM/50 ML RTUPB IV SCH (11:18)
[2017-12-09] MEDS ORDERED: DEXAMETHASONE SOD PHOSPHATE INJ 4 MG/1 ML VIAL IV PRN (11:25)
[2017-12-09] MEDS: LEVOFLOXACIN 750 MG/D5W RTU 750 MG/150 ML RTUPB IV SCH (12:36)
--- NOTE | 2017-12-09 14:08 | PDOC PROGRESS REPORT ---
Subjective Progress Note for:: 12/09/17 Subjective:: Intubated and sedated continues to improve Reason For Visit: ACUTE RESPIRATORY DISTRESS Physical Exam Vital Signs: Temp Pulse Resp BP Pulse Ox 99.1 F 72 24 H 127/81 H 94 12/09/17 08:00 12/09/17 08:00 12/09/17 08:00 12/09/17 08:00 12/09/17 08:00 Intake & Output 12/08/17 12/09/17 12/10/17 06:59 06:59 06:59 Intake Total 3878 3800 Output Total 2975 3120 100 Balance 903 680 -100 Weight 90.9 kg 91.2 kg General appearance: PRESENT: no acute distress, cooperative, disheveled, well- developed, well-nourished Head exam: PRESENT: atraumatic, normocephalic Eye exam: PRESENT: conjunctiva pale, EOMI. ABSENT: nystagmus, scleral icterus Mouth exam: PRESENT: dry mucosa, neck supple, tongue midline, other - ET tube in place Neck exam: ABSENT: carotid bruit, JVD, lymphadenopathy, thyromegaly, tracheal deviation, tracheostomy Respiratory exam: PRESENT: decreased breath sounds, prolonged expiratory phas, unlabored, wheezes. ABSENT: rales, retraction, rhonchi, stridor Cardiovascular exam: PRESENT: RRR, +S1, +S2 Pulses: PRESENT: normal carotid pulses, normal radial pulses GI/Abdominal exam: PRESENT: soft. ABSENT: tenderness Gentrourinary exam: PRESENT: indwelling catheter Extremities exam: PRESENT: full ROM, pedal edema. ABSENT: calf tenderness, clubbing, joint swelling Musculoskeletal exam: PRESENT: full ROM. ABSENT: deformity, dislocation Neurological exam: PRESENT: awake Skin exam: PRESENT: dry, warm Results Laboratory Results: 12/09/17 03:48 12/09/17 03:48 12/09/17 12/09/17 12/09/17 03:48 03:48 07:58 WBC 9.0 RBC 4.13 L Hgb 12.5 L Hct 36.0 L MCV 87 MCH 30.2 MCHC 34.7 RDW 13.6 Plt Count 141 L Seg Neutrophils % 83.8 H Lymphocytes % 8.5 L Monocytes % 7.6 Eosinophils % 0.0 Basophils % 0.1 Absolute Neutrophils 7.5 Absolute Lymphocytes 0.8 Absolute Monocytes 0.7 Absolute Eosinophils 0.0 Absolute Basophils 0.0 Carbonic Acid 1.08 HCO3/H2CO3 Ratio 23:1 ABG pH 7.47 H ABG pCO2 36.0 ABG pO2 50.6 L ABG HCO3 25.8 H ABG O2 Saturation 88.4 L ABG Base Excess 2.5 FiO2 40% Sodium 141.0 Potassium 4.2 Chloride 108 H Carbon Dioxide 29 Anion Gap 4 L BUN 23 H Creatinine 0.73 Est GFR ( Amer) > 60 Est GFR (Non-Af Amer) > 60 Glucose 139 H Calcium 8.6 Impressions: Abdomen/Pelvis CT 12/06/17 00:00 IMPRESSION: 1. Borderline hepatomegaly. Periportal lucencies. The findings could be seen with congestive failure hepatitis, or cholangitis 2. Abdominal and pelvic ascites. Chest/Abdomen CTA 12/06/17 10:33 IMPRESSION: 1. Ground-glass infiltrate right upper lobe and right 0 which could represent pneumonia. Endobronchial secretions node with in the lower lobes bilaterally. No pulmonary embolus. 2. Ascites. Chest X-Ray 12/09/17 06:00 IMPRESSION: No change. Assessment & Plan - Diagnosis (1) Status asthmaticus Qualifiers: Asthma severity: severe Asthma persistence: persistent Qualified Code(s) : J45.52 - Severe persistent asthma with status asthmaticus Is this a current diagnosis for this admission?: Yes Plan: Improving FiO2 down airway pressures diminished,: Extubate (2) Acute hypercapnic respiratory failure Is this a current diagnosis for this admission?: Yes Plan: Improved basil rate minute ventilation airway pressures FiO2 all would lead to successful extubation will proceed with extubation to BiPAP - Time Total Critical Time (Minutes): 55
[2017-12-09] MEDS ORDERED: DEXAMETHASONE SOD PHOSPHATE INJ 4 MG/1 ML VIAL IV ONE (15:45)
--- NOTE | 2017-12-09 15:48 | PDOC PROGRESS REPORT ---
Subjective Progress Note for:: 12/09/17 Subjective:: NIGEL RAMOS is a 27 year old male presented to the emergency room secondary to acute distress distress. Patient has a known past medical history of poorly controlled asthma with history of hospitalization and intubation in past. Presented to the emergency department with complaint of worsening shortness of breath and difficulty breathing for the past 2 days that became significantly worsened overnight. Patient himself called EMS. Upon arrival to the emergency department patient was found to be diaphoretic with increased work of breathing. Patient was significantly tachypneic upon arrival to emergency department at which point decision was made by the ED physician to intubate patient. Patient is intubated, sedated. According to ER physician, patient is unable to afford pulmonary care. Patient has been on the ventilator since the fourth. Extubated today tolerated extubation quite well titrated from BiPAP to nasal cannula quickly. Patient sputum is growing gram-positive cocci and H. influenzae. Patient remains on vancomycin and cefepime ID and sensitivity are pending. Reason For Visit: ACUTE RESPIRATORY DISTRESS Physical Exam Vital Signs: Temp Pulse Resp BP Pulse Ox 99.1 F 45 L 14 129/87 H 97 12/09/17 14:32 12/09/17 14:32 12/09/17 14:32 12/09/17 14:32 12/09/17 14:32 Intake & Output 12/08/17 12/09/17 12/10/17 06:59 06:59 06:59 Intake Total 3878 3950 450 Output Total 2975 3120 940 Balance 903 830 -490 Weight 90.9 kg 91.2 kg General appearance: PRESENT: no acute distress, well-developed, well-nourished Neck exam: ABSENT: carotid bruit, JVD, lymphadenopathy, thyromegaly Respiratory exam: PRESENT: clear to auscultation charanjit. ABSENT: rales, rhonchi, wheezes Cardiovascular exam: PRESENT: RRR. ABSENT: diastolic murmur, rubs, systolic murmur Pulses: PRESENT: normal dorsalis pedis pul GI/Abdominal exam: PRESENT: normal bowel sounds, soft. ABSENT: distended, guarding, mass, organolmegaly, rebound, tenderness Extremities exam: PRESENT: full ROM. ABSENT: calf tenderness, clubbing, pedal edema Results Laboratory Results: 12/09/17 03:48 12/09/17 03:48 12/09/17 12/09/17 12/09/17 03:48 03:48 07:58 WBC 9.0 RBC 4.13 L Hgb 12.5 L Hct 36.0 L MCV 87 MCH 30.2 MCHC 34.7 RDW 13.6 Plt Count 141 L Seg Neutrophils % 83.8 H Lymphocytes % 8.5 L Monocytes % 7.6 Eosinophils % 0.0 Basophils % 0.1 Absolute Neutrophils 7.5 Absolute Lymphocytes 0.8 Absolute Monocytes 0.7 Absolute Eosinophils 0.0 Absolute Basophils 0.0 Carbonic Acid 1.08 HCO3/H2CO3 Ratio 23:1 ABG pH 7.47 H ABG pCO2 36.0 ABG pO2 50.6 L ABG HCO3 25.8 H ABG O2 Saturation 88.4 L ABG Base Excess 2.5 FiO2 40% Sodium 141.0 Potassium 4.2 Chloride 108 H Carbon Dioxide 29 Anion Gap 4 L BUN 23 H Creatinine 0.73 Est GFR ( Amer) > 60 Est GFR (Non-Af Amer) > 60 Glucose 139 H Calcium 8.6 Impressions: Abdomen/Pelvis CT 12/06/17 00:00 IMPRESSION: 1. Borderline hepatomegaly. Periportal lucencies. The findings could be seen with congestive failure hepatitis, or cholangitis 2. Abdominal and pelvic ascites. Chest/Abdomen CTA 12/06/17 10:33 IMPRESSION: 1. Ground-glass infiltrate right upper lobe and right 0 which could represent pneumonia. Endobronchial secretions node with in the lower lobes bilaterally. No pulmonary embolus. 2. Ascites. Chest X-Ray 12/09/17 06:00 IMPRESSION: No change. Assessment & Plan - Diagnosis (1) Acute hypercapnic respiratory failure Is this a current diagnosis for this admission?: Yes Plan: Extubated from ventilator today continue to monitor in ICU overnight. Continue nebulizing treatments as ordered. Continue Solu-Medrol (2) Status asthmaticus Qualifiers: Asthma severity: severe Asthma persistence: persistent Qualified Code(s) : J45.52 - Severe persistent asthma with status asthmaticus Is this a current diagnosis for this admission?: Yes Plan: Extubated. Continue steroids and nebulizing treatments. (3) Tachycardia Is this a current diagnosis for this admission?: Yes Plan: Secondary to above (4) Acute bronchitis Is this a current diagnosis for this admission?: Yes Plan: Gram-positive cocci and H. influenzae will transition to p.o. antibiotics and morning if patient remains stable and white count remains down. (5) Tobacco abuse Is this a current diagnosis for this admission?: Yes Plan: Never a good idea in an asthmatic cessation discussed - Time Time Spent with patient: 25-34 minutes
[2017-12-09 17:08] LABS: URINE AMPHETAMINES SCREEN NEGATIVE; URINE BARBITURATES SCREEN NEGATIVE; URINE COCAINE SCREEN NEGATIVE; URINE METHADONE SCREEN NEGATIVE; URINE PHENCYCLIDINE SCREEN NEGATIVE
[2017-12-09 17:12] LABS: URINE BENZODIAZEPINES SCREEN UNCONFIRMED POSITIVE
[2017-12-09 17:13] LABS: URINE MARIJUANA (THC) SCREEN UNCONFIRMED POSITIVE
[2017-12-09] MEDS: NICOTINE 7 MG/24 HR PATCH.TD24 TD SCH (22:20)
[2017-12-10] MEDS: METHYLPREDNISOLONE INJ 40 MG/1 ML SDV IV SCH ×4 (00:23→18:41)
[2017-12-10] MEDS: CEFEPIME 2 GM/D5W RTU 2 GM/50 ML RTUPB IV SCH (00:25)
[2017-12-10] MEDS: IPRATROPIUM/ALBUTEROL 0.5-2.5 MG/3 ML AMPUL NEB SCH ×4 (02:07→20:47)
[2017-12-10] MEDS: SUCRALFATE SUSP 1 GM/10 ML UDCUP PO SCH ×4 (03:04→21:04)
[2017-12-10] MEDS: POTASSI CL 20 MEQ/D5-1/2NS 1L 1000 ML IV PRN ×3 (03:04→22:45)
[2017-12-10] MEDS: VANCOMYCIN HCL 1,250 MG in DEXTROSE 5%-WATER 250 ML IV SCH (03:04)
[2017-12-10 04:17] LABS: ABSOLUTE LYMPHOCYTES (AUTO) 0.8 10^3/uL (0.5-4.7); ABSOLUTE MONOCYTES (AUTO) 0.7 10^3/uL (0.1-1.4); ABSOLUTE NEUT (AUTO) 8.3 10^3/uL (1.7-8.2); BASOPHILS % (AUTO) 0.4 % (0-2); HEMATOCRIT 38.5 % (37.9-51.0); HEMOGLOBIN 13.7 g/dL (13.5-17.0); LYMPHOCYTES % (AUTO) 8.6 % (13-45); MEAN CORPUSCULAR HEMOGLOBIN 29.9 pg (27.0-33.4); MEAN CORPUSCULAR HGB CONC 35.5 g/dL (32.0-36.0); MEAN CORPUSCULAR VOLUME 84 fl (80-97); MONOCYTES % (AUTO) 6.7 % (3-13); PLATELET COUNT 150 10^3/uL (150-450); RED BLOOD COUNT 4.58 10^6/uL (4.35-5.55); RED CELL DISTRIBUTION WIDTH 13.6 % (11.5-14.0); SEGMENTED NEUTROPHILS % (AUTO) 84.3 % (42-78); TOTAL CELLS COUNTED % (AUTO) 100 %; WHITE BLOOD COUNT 9.8 10^3/uL (4.0-10.5)
[2017-12-10 04:27] LABS: ALANINE AMINOTRANSFERASE 90 U/L (21-72); ALBUMIN 3.4 g/dL (3.5-5.0); ALKALINE PHOSPHATASE 63 U/L (38-126); ANION GAP 6 (5-19); ASPARTATE AMINO TRANSFERASE 69 U/L (17-59); BILIRUBIN,DIRECT 0.3 mg/dL (0.0-0.4); BILIRUBIN,TOTAL 1.1 mg/dL (0.2-1.3); BLOOD UREA NITROGEN 20 mg/dL (7-20); CALCIUM 8.9 mg/dL (8.4-10.2); CARBON DIOXIDE 28 mmol/L (22-30); CHLORIDE 106 mmol/L (98-107); GLUCOSE 122 mg/dL (75-110); POTASSIUM 4.1 mmol/L (3.6-5.0); SODIUM 140.4 mmol/L (137-145); TOTAL PROTEIN 5.8 g/dL (6.3-8.2)
--- NOTE | 2017-12-10 06:33 | RADIOLOGY REPORT (SQ) ---
EXAM DESCRIPTION: XR CHEST 1 VIEW COMPLETED DATE/TME: 12/10/2017 06:00 CLINICAL HISTORY: 27 years Male, resp failure COMPARISON: One day prior. NUMBER OF VIEWS/TECHNIQUE: 1/AP FINDINGS: Pulmonary vascular congestion, normal cardiac silhouette, increased lung volume. No pneumothorax. Stable bony thorax. IMPRESSION: Interval extubation.
[2017-12-10] MEDS: BUDESONIDE NEB 0.5 MG/2 ML AMPUL NEB SCH ×2 (08:16→20:47)
[2017-12-10] MEDS: ACETYLCYSTEINE 20% SOLN 800 MG/4 ML VIAL.NEB NEB SCH ×2 (08:16→20:47)
[2017-12-10 08:33] LABS: ARTERIAL BLOOD BASE EXCESS 3.7 mmol/L; ARTERIAL BLOOD H2CO3 1.14 mmol/L (1.05-1.35); ARTERIAL BLOOD HCO3 27.3 mmol/L (20-24); ARTERIAL BLOOD O2 SATURATION 97.5 % (94-98); ARTERIAL BLOOD PCO2 37.8 mmHg (35-45); ARTERIAL BLOOD PH 7.48 (7.35-7.45); ARTERIAL BLOOD PO2 91.5 mmHg (80-100); ARTERIAL BLOOD TOTAL CO2 28.4 mmol/L (23-27)
[2017-12-10 08:34] LABS: ARTERIAL BLOOD FIO2 4L
[2017-12-10] MEDS: FAMOTIDINE INJ/PF 20 MG/2 ML SDV IV SCH ×2 (09:32→21:04)
[2017-12-10] MEDS: DOCUSATE SODIUM 100 MG/10 ML UDC PO SCH (09:32)
[2017-12-10] MEDS: NICOTINE 7 MG/24 HR PATCH.TD24 TD SCH (09:33)
[2017-12-10] MEDS: MONTELUKAST SODIUM 10 MG TABLET GT SCH (09:34)
[2017-12-10] MEDS: ENOXAPARIN SODIUM INJ 40 MG/0.4 ML DISP.SYRIN SUBCUT SCH (09:37)
[2017-12-10] MEDS ORDERED: CEFTRIAXONE 1 GM/D5W RTU 1 GM/50 ML RTUPB IV SCH (10:00)
--- NOTE | 2017-12-10 10:28 | PDOC PROGRESS REPORT ---
Subjective Progress Note for:: 12/10/17 Subjective:: NIGEL RAMOS is a 27 year old male presented to the emergency room secondary to acute distress distress. Patient has a known past medical history of poorly controlled asthma with history of hospitalization and intubation in past. Presented to the emergency department with complaint of worsening shortness of breath and difficulty breathing for the past 2 days that became significantly worsened overnight. Patient himself called EMS. Upon arrival to the emergency department patient was found to be diaphoretic with increased work of breathing. Patient was significantly tachypneic upon arrival to emergency department at which point decision was made by the ED physician to intubate patient. Patient is intubated, sedated. According to ER physician, patient is unable to afford pulmonary care. Patient has been on the ventilator since the fourth. Extubated today tolerated extubation quite well titrated from BiPAP to nasal cannula quickly. Patient sputum is growing gram-positive cocci and H. influenzae. Patient remains on vancomycin and cefepime ID and sensitivity are pending. Patient awake and alert still has some audible wheezing no use of accessory muscles no conversational dyspnea. Reason For Visit: ACUTE RESPIRATORY DISTRESS Physical Exam Vital Signs: Temp Pulse Resp BP Pulse Ox 98.1 F 75 14 131/82 H 100 12/10/17 08:00 12/10/17 08:00 12/10/17 08:00 12/10/17 08:00 12/10/17 08:00 Intake & Output 12/09/17 12/10/17 12/11/17 06:59 06:59 06:59 Intake Total 3950 3100 Output Total 3120 4648 725 Balance 830 -1625 -725 Weight 91.2 kg 88.4 kg General appearance: PRESENT: no acute distress, well-developed, well-nourished Neck exam: ABSENT: carotid bruit, JVD, lymphadenopathy, thyromegaly Respiratory exam: PRESENT: wheezes. ABSENT: accessory muscle use, rales, rhonchi Cardiovascular exam: PRESENT: RRR. ABSENT: diastolic murmur, rubs, systolic murmur GI/Abdominal exam: PRESENT: normal bowel sounds, soft. ABSENT: distended, guarding, mass, organolmegaly, rebound, tenderness Extremities exam: PRESENT: full ROM. ABSENT: calf tenderness, clubbing, pedal edema Results Laboratory Results: 12/10/17 04:01 12/10/17 04:01 12/10/17 12/10/17 12/10/17 04:01 04:01 08:00 WBC 9.8 RBC 4.58 Hgb 13.7 Hct 38.5 MCV 84 MCH 29.9 MCHC 35.5 RDW 13.6 Plt Count 150 Seg Neutrophils % 84.3 H Lymphocytes % 8.6 L Monocytes % 6.7 Eosinophils % 0.0 Basophils % 0.4 Absolute Neutrophils 8.3 H Absolute Lymphocytes 0.8 Absolute Monocytes 0.7 Absolute Eosinophils 0.0 Absolute Basophils 0.0 Carbonic Acid 1.14 HCO3/H2CO3 Ratio 23:1 ABG pH 7.48 H ABG pCO2 37.8 ABG pO2 91.5 ABG HCO3 27.3 H ABG O2 Saturation 97.5 ABG Base Excess 3.7 FiO2 4L Sodium 140.4 Potassium 4.1 Chloride 106 Carbon Dioxide 28 Anion Gap 6 BUN 20 Creatinine 0.66 Est GFR ( Amer) > 60 Est GFR (Non-Af Amer) > 60 Glucose 122 H Calcium 8.9 Magnesium 2.2 Total Bilirubin 1.1 AST 69 H ALT 90 H Alkaline Phosphatase 63 Total Protein 5.8 L Albumin 3.4 L 12/06/17 10:45 Tracheal Aspirate Gram Stain - Final 12/06/17 10:45 Tracheal Aspirate Sputum Culture - Final Staphylococcus Aureus Haemophilus Influenzae Normal Marielena Absent Impressions: Abdomen/Pelvis CT 12/06/17 00:00 IMPRESSION: 1. Borderline hepatomegaly. Periportal lucencies. The findings could be seen with congestive failure hepatitis, or cholangitis 2. Abdominal and pelvic ascites. Chest/Abdomen CTA 12/06/17 10:33 IMPRESSION: 1. Ground-glass infiltrate right upper lobe and right 0 which could represent pneumonia. Endobronchial secretions node with in the lower lobes bilaterally. No pulmonary embolus. 2. Ascites. Chest X-Ray 12/10/17 06:00 IMPRESSION: Interval extubation. Assessment & Plan - Diagnosis (1) Acute hypercapnic respiratory failure Is this a current diagnosis for this admission?: Yes Plan: Extubated from ventilator yesterday transfer to medical floor increase ambulation discontinue Pedro catheter. Continue nebulizing treatments as ordered. Continue Solu-Medrol (2) Status asthmaticus Qualifiers: Asthma severity: severe Asthma persistence: persistent Qualified Code(s) : J45.52 - Severe persistent asthma with status asthmaticus Is this a current diagnosis for this admission?: Yes Plan: Extubated. Continue steroids and nebulizing treatments. (3) Tachycardia Is this a current diagnosis for this admission?: Yes (4) Acute bronchitis Is this a current diagnosis for this admission?: Yes Plan: Staph aureus pansensitive and H. influenzae will transition Rocephin 1 g daily. (5) Tobacco abuse Is this a current diagnosis for this admission?: Yes Plan: Never a good idea in an asthmatic cessation discussed - Time Time Spent with patient: 25-34 minutes Anticipated discharge: Home Within: within 24 hours
[2017-12-10] MEDS: CEFTRIAXONE SODIUM 1,000 MG in DEXTROSE 5%-WATER 50 ML IV SCH (11:50)
--- NOTE | 2017-12-10 18:11 | PDOC PROGRESS REPORT ---
Subjective Progress Note for:: 12/10/17 Subjective:: continues to improve Reason For Visit: ACUTE RESPIRATORY DISTRESS Physical Exam Vital Signs: Temp Pulse Resp BP Pulse Ox 98.1 F 45 L 14 131/82 H 100 12/10/17 08:00 12/10/17 08:00 12/10/17 08:00 12/10/17 08:00 12/10/17 08:00 Intake & Output 12/09/17 12/10/17 12/11/17 06:59 06:59 06:59 Intake Total 3950 3100 Output Total 3120 4725 725 Balance 830 -1625 -725 Weight 91.2 kg 88.4 kg General appearance: PRESENT: no acute distress, cooperative, disheveled, well- developed Head exam: PRESENT: atraumatic, normocephalic Eye exam: PRESENT: conjunctiva pale, EOMI. ABSENT: nystagmus, scleral icterus Mouth exam: PRESENT: moist, neck supple, tongue midline Neck exam: ABSENT: carotid bruit, JVD, lymphadenopathy, thyromegaly, tracheal deviation, tracheostomy Respiratory exam: PRESENT: decreased breath sounds, prolonged expiratory phas, rales, rhonchi, unlabored. ABSENT: retraction, stridor Cardiovascular exam: PRESENT: RRR, +S1, +S2 Pulses: PRESENT: normal radial pulses GI/Abdominal exam: PRESENT: soft. ABSENT: tenderness Gentrourinary exam: PRESENT: indwelling catheter Extremities exam: ABSENT: calf tenderness, clubbing, joint swelling Musculoskeletal exam: ABSENT: deformity, dislocation Neurological exam: PRESENT: alert, awake Psychiatric exam: PRESENT: normal mood Skin exam: PRESENT: dry, warm Results Laboratory Results: 12/10/17 04:01 12/10/17 04:01 12/10/17 12/10/17 12/10/17 04:01 04:01 08:00 WBC 9.8 RBC 4.58 Hgb 13.7 Hct 38.5 MCV 84 MCH 29.9 MCHC 35.5 RDW 13.6 Plt Count 150 Seg Neutrophils % 84.3 H Lymphocytes % 8.6 L Monocytes % 6.7 Eosinophils % 0.0 Basophils % 0.4 Absolute Neutrophils 8.3 H Absolute Lymphocytes 0.8 Absolute Monocytes 0.7 Absolute Eosinophils 0.0 Absolute Basophils 0.0 Carbonic Acid 1.14 HCO3/H2CO3 Ratio 23:1 ABG pH 7.48 H ABG pCO2 37.8 ABG pO2 91.5 ABG HCO3 27.3 H ABG O2 Saturation 97.5 ABG Base Excess 3.7 FiO2 4L Sodium 140.4 Potassium 4.1 Chloride 106 Carbon Dioxide 28 Anion Gap 6 BUN 20 Creatinine 0.66 Est GFR ( Amer) > 60 Est GFR (Non-Af Amer) > 60 Glucose 122 H Calcium 8.9 Magnesium 2.2 Total Bilirubin 1.1 AST 69 H ALT 90 H Alkaline Phosphatase 63 Total Protein 5.8 L Albumin 3.4 L 12/06/17 10:45 Tracheal Aspirate Gram Stain - Final 12/06/17 10:45 Tracheal Aspirate Sputum Culture - Final Staphylococcus Aureus Haemophilus Influenzae Normal Marielena Absent Impressions: Abdomen/Pelvis CT 12/06/17 00:00 IMPRESSION: 1. Borderline hepatomegaly. Periportal lucencies. The findings could be seen with congestive failure hepatitis, or cholangitis 2. Abdominal and pelvic ascites. Chest/Abdomen CTA 12/06/17 10:33 IMPRESSION: 1. Ground-glass infiltrate right upper lobe and right 0 which could represent pneumonia. Endobronchial secretions node with in the lower lobes bilaterally. No pulmonary embolus. 2. Ascites. Chest X-Ray 12/10/17 06:00 IMPRESSION: Interval extubation. Assessment & Plan - Diagnosis (1) Status asthmaticus Qualifiers: Asthma severity: severe Asthma persistence: persistent Qualified Code(s) : J45.52 - Severe persistent asthma with status asthmaticus Is this a current diagnosis for this admission?: Yes Plan: 24 hours status post extubation doing well (2) Acute hypercapnic respiratory failure Is this a current diagnosis for this admission?: Yes Plan: Improved - Time Total Critical Time (Minutes): 40
[2017-12-11] MEDS: METHYLPREDNISOLONE INJ 40 MG/1 ML SDV IV SCH ×4 (00:26→17:40)
[2017-12-11] MEDS: IPRATROPIUM/ALBUTEROL 0.5-2.5 MG/3 ML AMPUL NEB SCH ×4 (02:47→19:50)
[2017-12-11] MEDS: SUCRALFATE SUSP 1 GM/10 ML UDCUP PO SCH ×4 (04:02→21:46)
[2017-12-11 05:15] LABS: ABSOLUTE BASOPHILS # (AUTO) 0.1 10^3/uL (0.0-0.2); ABSOLUTE LYMPHOCYTES (AUTO) 0.9 10^3/uL (0.5-4.7); ABSOLUTE MONOCYTES (AUTO) 0.7 10^3/uL (0.1-1.4); BASOPHILS % (AUTO) 0.5 % (0-2); HEMATOCRIT 38.5 % (37.9-51.0); HEMOGLOBIN 13.6 g/dL (13.5-17.0); LYMPHOCYTES % (AUTO) 8.1 % (13-45); MEAN CORPUSCULAR HGB CONC 35.2 g/dL (32.0-36.0); MEAN CORPUSCULAR VOLUME 85 fl (80-97); MONOCYTES % (AUTO) 6.8 % (3-13); PLATELET COUNT 147 10^3/uL (150-450); RED BLOOD COUNT 4.52 10^6/uL (4.35-5.55); RED CELL DISTRIBUTION WIDTH 13.3 % (11.5-14.0); SEGMENTED NEUTROPHILS % (AUTO) 84.6 % (42-78); TOTAL CELLS COUNTED % (AUTO) 100 %; WHITE BLOOD COUNT 10.7 10^3/uL (4.0-10.5)
[2017-12-11 05:34] LABS: ANION GAP 10 (5-19); BLOOD UREA NITROGEN 19 mg/dL (7-20); CALCIUM 8.8 mg/dL (8.4-10.2); CARBON DIOXIDE 25 mmol/L (22-30); CHLORIDE 105 mmol/L (98-107); GLUCOSE 101 mg/dL (75-110); POTASSIUM 4.1 mmol/L (3.6-5.0); SODIUM 139.8 mmol/L (137-145)
[2017-12-11 06:47] LABS: ARTERIAL BLOOD BASE EXCESS 2.4 mmol/L; ARTERIAL BLOOD H2CO3 1.26 mmol/L (1.05-1.35); ARTERIAL BLOOD HCO3 27.1 mmol/L (20-24); ARTERIAL BLOOD O2 SATURATION 78.9 % (94-98); ARTERIAL BLOOD PCO2 41.9 mmHg (35-45); ARTERIAL BLOOD PH 7.43 (7.35-7.45); ARTERIAL BLOOD TOTAL CO2 28.3 mmol/L (23-27)
[2017-12-11 06:48] LABS: ARTERIAL BLOOD FIO2 4L
[2017-12-11] MEDS: BUDESONIDE NEB 0.5 MG/2 ML AMPUL NEB SCH ×2 (07:56→19:50)
[2017-12-11] MEDS: ACETYLCYSTEINE 20% SOLN 800 MG/4 ML VIAL.NEB NEB SCH ×2 (07:56→19:50)
[2017-12-11] MEDS: NICOTINE 7 MG/24 HR PATCH.TD24 TD SCH (10:07)
[2017-12-11] MEDS: MONTELUKAST SODIUM 10 MG TABLET GT SCH (10:07)
[2017-12-11] MEDS: ENOXAPARIN SODIUM INJ 40 MG/0.4 ML DISP.SYRIN SUBCUT SCH (10:08)
[2017-12-11] MEDS: DOCUSATE SODIUM 100 MG/10 ML UDC PO SCH (10:08)
[2017-12-11] MEDS: FAMOTIDINE INJ/PF 20 MG/2 ML SDV IV SCH ×2 (10:09→21:46)
[2017-12-11] MEDS: POTASSI CL 20 MEQ/D5-1/2NS 1L 1000 ML IV PRN ×2 (10:10→21:47)
[2017-12-11] MEDS: CEFTRIAXONE SODIUM 1,000 MG in DEXTROSE 5%-WATER 50 ML IV SCH (10:13)
--- NOTE | 2017-12-11 12:19 | PDOC PROGRESS REPORT ---
Subjective Progress Note for:: 12/11/17 Subjective:: NIGEL RAMOS is a 27 year old male presented to the emergency room secondary to acute distress distress. Patient has a known past medical history of poorly controlled asthma with history of hospitalization and intubation in past. Presented to the emergency department with complaint of worsening shortness of breath and difficulty breathing for the past 2 days that became significantly worsened overnight. Patient himself called EMS. Upon arrival to the emergency department patient was found to be diaphoretic with increased work of breathing. Patient was significantly tachypneic upon arrival to emergency department at which point decision was made by the ED physician to intubate patient. Patient is intubated, sedated. According to ER physician, patient is unable to afford pulmonary care. Patient has been on the ventilator since the fourth. Extubated yesterday and transferred to the floor. Patient significantly improved. Still has audible wheezing and rhonchi requiring oxygen to maintain saturations. Tolerating meals no new complaints Reason For Visit: ACUTE RESPIRATORY DISTRESS Physical Exam Vital Signs: Temp Pulse Resp BP Pulse Ox 97.8 F 50 L 16 115/56 L 94 12/11/17 08:00 12/11/17 08:00 12/11/17 08:00 12/11/17 08:00 12/11/17 08:00 Intake & Output 12/10/17 12/11/17 12/12/17 06:59 06:59 06:59 Intake Total 3100 4629 Output Total 4766 3225 Balance -1625 1404 Weight 88.4 kg 88.5 kg General appearance: PRESENT: no acute distress, well-developed, well-nourished Head exam: PRESENT: atraumatic, normocephalic Neck exam: ABSENT: carotid bruit, JVD, lymphadenopathy, thyromegaly Respiratory exam: PRESENT: rhonchi, wheezes. ABSENT: accessory muscle use Cardiovascular exam: PRESENT: RRR. ABSENT: diastolic murmur, rubs, systolic murmur Pulses: PRESENT: normal dorsalis pedis pul GI/Abdominal exam: PRESENT: normal bowel sounds, soft. ABSENT: distended, guarding, mass, organolmegaly, rebound, tenderness Extremities exam: PRESENT: full ROM. ABSENT: calf tenderness, clubbing, pedal edema Results Laboratory Results: 12/11/17 04:49 12/11/17 04:49 12/11/17 12/11/17 12/11/17 04:49 04:49 06:30 WBC 10.7 H RBC 4.52 Hgb 13.6 Hct 38.5 MCV 85 MCH 30.0 MCHC 35.2 RDW 13.3 Plt Count 147 L Seg Neutrophils % 84.6 H Lymphocytes % 8.1 L Monocytes % 6.8 Eosinophils % 0.0 Basophils % 0.5 Absolute Neutrophils 9.0 H Absolute Lymphocytes 0.9 Absolute Monocytes 0.7 Absolute Eosinophils 0.0 Absolute Basophils 0.1 Carbonic Acid 1.26 HCO3/H2CO3 Ratio 21:1 ABG pH 7.43 ABG pCO2 41.9 ABG pO2 42.0 L ABG HCO3 27.1 H ABG O2 Saturation 78.9 L ABG Base Excess 2.4 FiO2 4L Sodium 139.8 Potassium 4.1 Chloride 105 Carbon Dioxide 25 Anion Gap 10 BUN 19 Creatinine 0.69 Est GFR ( Amer) > 60 Est GFR (Non-Af Amer) > 60 Glucose 101 Calcium 8.8 Impressions: Abdomen/Pelvis CT 12/06/17 00:00 IMPRESSION: 1. Borderline hepatomegaly. Periportal lucencies. The findings could be seen with congestive failure hepatitis, or cholangitis 2. Abdominal and pelvic ascites. Chest/Abdomen CTA 12/06/17 10:33 IMPRESSION: 1. Ground-glass infiltrate right upper lobe and right 0 which could represent pneumonia. Endobronchial secretions node with in the lower lobes bilaterally. No pulmonary embolus. 2. Ascites. Chest X-Ray 12/10/17 06:00 IMPRESSION: Interval extubation. Assessment & Plan - Diagnosis (1) Acute hypercapnic respiratory failure Is this a current diagnosis for this admission?: Yes Plan: Extubated from ventilator yesterday transfer to medical floor increase ambulation wean oxygen as appropriate. Continue nebulizing treatments as ordered. Continue Solu-Medrol (2) Status asthmaticus Qualifiers: Asthma severity: severe Asthma persistence: persistent Qualified Code(s) : J45.52 - Severe persistent asthma with status asthmaticus Is this a current diagnosis for this admission?: Yes Plan: Resolved (3) Tachycardia Is this a current diagnosis for this admission?: Yes Plan: Resolved (4) Acute bronchitis Is this a current diagnosis for this admission?: Yes Plan: Staph aureus pansensitive and H. influenzae will transition Rocephin 1 g daily. (5) Tobacco abuse Is this a current diagnosis for this admission?: Yes Plan: Never a good idea in an asthmatic cessation discussed - Time Time Spent with patient: 15-24 minutes Within: within 48 hours
--- NOTE | 2017-12-11 14:17 | PDOC PROGRESS REPORT ---
Subjective Progress Note for:: 12/11/17 Subjective:: continues to improve Reason For Visit: ACUTE RESPIRATORY DISTRESS Physical Exam Vital Signs: Temp Pulse Resp BP Pulse Ox 97.8 F 50 L 16 115/56 L 94 12/11/17 08:00 12/11/17 08:00 12/11/17 08:00 12/11/17 08:00 12/11/17 08:00 Intake & Output 12/10/17 12/11/17 12/12/17 06:59 06:59 06:59 Intake Total 3100 4629 526 Output Total 4725 3225 Balance -1625 1404 526 Weight 88.4 kg 88.5 kg General appearance: PRESENT: no acute distress, cooperative, disheveled, well- developed, well-nourished Head exam: PRESENT: atraumatic, normocephalic Eye exam: PRESENT: conjunctiva pink, EOMI. ABSENT: nystagmus, scleral icterus Mouth exam: PRESENT: moist, neck supple, tongue midline Neck exam: ABSENT: carotid bruit, JVD, lymphadenopathy, thyromegaly, tracheal deviation, tracheostomy Respiratory exam: PRESENT: clear to auscultation charanjit, prolonged expiratory phas , unlabored. ABSENT: rales, retraction, rhonchi, tachypnea, wheezes Cardiovascular exam: PRESENT: RRR, +S1, +S2 Pulses: PRESENT: normal radial pulses GI/Abdominal exam: PRESENT: soft. ABSENT: tenderness Extremities exam: ABSENT: calf tenderness, clubbing, joint swelling Musculoskeletal exam: ABSENT: deformity, dislocation Neurological exam: PRESENT: alert, awake Psychiatric exam: PRESENT: normal mood Skin exam: PRESENT: dry, warm Results Laboratory Results: 12/11/17 04:49 12/11/17 04:49 12/11/17 12/11/17 12/11/17 04:49 04:49 06:30 WBC 10.7 H RBC 4.52 Hgb 13.6 Hct 38.5 MCV 85 MCH 30.0 MCHC 35.2 RDW 13.3 Plt Count 147 L Seg Neutrophils % 84.6 H Lymphocytes % 8.1 L Monocytes % 6.8 Eosinophils % 0.0 Basophils % 0.5 Absolute Neutrophils 9.0 H Absolute Lymphocytes 0.9 Absolute Monocytes 0.7 Absolute Eosinophils 0.0 Absolute Basophils 0.1 Carbonic Acid 1.26 HCO3/H2CO3 Ratio 21:1 ABG pH 7.43 ABG pCO2 41.9 ABG pO2 42.0 L ABG HCO3 27.1 H ABG O2 Saturation 78.9 L ABG Base Excess 2.4 FiO2 4L Sodium 139.8 Potassium 4.1 Chloride 105 Carbon Dioxide 25 Anion Gap 10 BUN 19 Creatinine 0.69 Est GFR ( Amer) > 60 Est GFR (Non-Af Amer) > 60 Glucose 101 Calcium 8.8 Impressions: Abdomen/Pelvis CT 12/06/17 00:00 IMPRESSION: 1. Borderline hepatomegaly. Periportal lucencies. The findings could be seen with congestive failure hepatitis, or cholangitis 2. Abdominal and pelvic ascites. Chest/Abdomen CTA 12/06/17 10:33 IMPRESSION: 1. Ground-glass infiltrate right upper lobe and right 0 which could represent pneumonia. Endobronchial secretions node with in the lower lobes bilaterally. No pulmonary embolus. 2. Ascites. Chest X-Ray 12/10/17 06:00 IMPRESSION: Interval extubation. Assessment & Plan - Diagnosis (1) Status asthmaticus Qualifiers: Asthma severity: severe Asthma persistence: persistent Qualified Code(s) : J45.52 - Severe persistent asthma with status asthmaticus Is this a current diagnosis for this admission?: Yes Plan: doing well (2) Acute hypercapnic respiratory failure Is this a current diagnosis for this admission?: Yes Plan: Resolved
[2017-12-12] MEDS: METHYLPREDNISOLONE INJ 40 MG/1 ML SDV IV SCH ×3 (00:24→11:39)
[2017-12-12] MEDS: IPRATROPIUM/ALBUTEROL 0.5-2.5 MG/3 ML AMPUL NEB SCH ×2 (02:07→07:55)
[2017-12-12] MEDS: SUCRALFATE SUSP 1 GM/10 ML UDCUP PO SCH ×2 (04:38→09:36)
[2017-12-12] MEDS: POTASSI CL 20 MEQ/D5-1/2NS 1L 1000 ML IV PRN (06:25)
[2017-12-12] MEDS: ACETYLCYSTEINE 20% SOLN 800 MG/4 ML VIAL.NEB NEB SCH (07:55)
[2017-12-12] MEDS: BUDESONIDE NEB 0.5 MG/2 ML AMPUL NEB SCH (07:55)
[2017-12-12 09:10] VITALS: BP 131/79
[2017-12-12] MEDS: DOCUSATE SODIUM 100 MG/10 ML UDC PO SCH (09:33)
[2017-12-12] MEDS: FAMOTIDINE INJ/PF 20 MG/2 ML SDV IV SCH (09:36)
[2017-12-12] MEDS: CEFTRIAXONE SODIUM 1,000 MG in DEXTROSE 5%-WATER 50 ML IV SCH (09:36)
[2017-12-12] MEDS: NICOTINE 7 MG/24 HR PATCH.TD24 TD SCH ×2 (09:36→09:39)
[2017-12-12] MEDS: ENOXAPARIN SODIUM INJ 40 MG/0.4 ML DISP.SYRIN SUBCUT SCH (09:37)
[2017-12-12] MEDS: MONTELUKAST SODIUM 10 MG TABLET GT SCH (09:37)
--- NOTE | 2017-12-12 10:24 | PDOC DISCHARGE SUMMARY ---
General - Admit/Disc Date/PCP Admission Date/Primary Care Provider: 12/04/17 01:21 Discharge Date: 12/12/17 - Discharge Diagnosis (1) Acute hypercapnic respiratory failure Is this a current diagnosis for this admission?: Yes (2) Status asthmaticus Is this a current diagnosis for this admission?: Yes (3) Tachycardia Is this a current diagnosis for this admission?: Yes (4) Acute bronchitis Is this a current diagnosis for this admission?: Yes (5) Tobacco abuse Is this a current diagnosis for this admission?: Yes - Additional Information Resuscitation Status: Full Code Prescriptions: Albuterol Sulfate [Proair Respiclick] 180 mcg IH Q4 PRN #1 aer.[email or web address] PRN Reason: For Wheezing Fluticasone/Salmeterol [Advair 250-50 Diskus 28 dose] 1 inh IH DAILY #1 inhaler Ipratropium/Albuterol Sulfate [Duoneb 3 ml Ampul] 3 ml NEB RTQ6 #120 vial.neb Methylprednisolone [Medrol Dosepack (4 mg/Tab) 21 Tab/Dosepak] 4 mg PO ASDIR PRN #21 tab.ds.pk PRN Reason: Montelukast Sodium [Singulair 10 mg Tablet] 10 mg GT DAILY 30 Days tablet Home Medications: Albuterol Sulfate [Proair HFA Inhalation Aerosol 8.5 gm MDI] 2 puff IH Q4HP PRN 12/04/17 Cetirizine HCl [Zyrtec 10 mg Tablet] 10 mg PO DAILY 12/04/17 Fluticasone Propionate [Flonase Nasal [place] 50 Mcg/[place] 16 gm] 2 spray NASL DAILY 12/04/17 Albuterol Sulfate [Proair Respiclick] 180 mcg IH Q4 PRN #1 aer.pow.ba 12/12/17 Fluticasone/Salmeterol [Advair 250-50 Diskus 28 dose] 1 inh IH DAILY #1 inhaler 12/12/17 Ipratropium/Albuterol Sulfate [Duoneb 3 ml Ampul] 3 ml NEB RTQ6 #120 vial.neb Methylprednisolone [Medrol Dosepack (4 mg/Tab) 21 Tab/Dosepak] 4 mg PO ASDIR PRN #21 tab.ds.pk 12/12/17 Montelukast Sodium [Singulair 10 mg Tablet] 10 mg GT DAILY 30 Days tablet 12/12 Nicotine [Nicoderm 7 mg/24 Hr Transdermal Patch] 1 each TD DAILY patch.td24 02/17 History of Present Illness Patient complains of: Shortness of breath History of Present Illness: NIGEL RAMOS is a 27 year old male presented to the emergency room secondary to acute distress distress. Patient has a known past medical history of poorly controlled asthma with history of hospitalization and intubation in past. Presented to the emergency department with complaint of worsening shortness of breath and difficulty breathing for the past 2 days that became significantly worsened overnight. Patient himself called EMS. Upon arrival to the emergency department patient was found to be diaphoretic with increased work of breathing. Patient was significantly tachypneic upon arrival to emergency department at which point decision was made by the ED physician to intubate patient. Hospital Course Hospital Course: Patient was intubated in the emergency room and admitted to the medical intensive care unit. A pulmonary consultation with Dr. Fish was obtained and the patient was placed on nebulizing treatments empiric antibiotics and IV steroids. His chest x-ray showed no discrete infiltrate he was eventually weaned from the ventilator. Patient showed stability of his respiratory status and was transferred to the floor. He still required 4 L of oxygen initially he continued to improve rapidly over the next few days to where his saturations of the time of discharge were 95-98% on room air. He had no wheezing he had no dyspnea. Discussing with the patient he has a nebulizer at home but did not have solutions he cannot afford the Advair that he was prescribed in the past and he was getting by on albuterol rescue inhaler alone. A consultation with discharge planning was obtained to see what assistance could be offered the patient was recommended that he seek the lowest dai for his medications but he would have to have the medications prescribed or he will be at high risk for another life-threatening bronchospasm. Also smoking cessation was strongly urged and he was provided nicotine patch while in the hospital and instructed to continue it on the outpatient setting. Physical Exam Vital Signs: Temp Pulse Resp BP Pulse Ox 98.4 F 95 18 131/79 H 99 12/12/17 08:00 12/12/17 08:00 12/12/17 08:00 12/12/17 08:00 12/12/17 08:00 Intake & Output 12/11/17 12/12/17 12/13/17 06:59 06:59 06:59 Intake Total 4629 4962 Output Total 3225 1750 Balance 1404 3212 Weight 88.5 kg 88.7 kg General appearance: PRESENT: no acute distress, well-developed, well-nourished Neck exam: ABSENT: carotid bruit, JVD, lymphadenopathy, thyromegaly Respiratory exam: PRESENT: accessory muscle use Cardiovascular exam: PRESENT: RRR. ABSENT: diastolic murmur, rubs, systolic murmur GI/Abdominal exam: PRESENT: normal bowel sounds, soft. ABSENT: distended, guarding, mass, organolmegaly, rebound, tenderness Extremities exam: PRESENT: full ROM. ABSENT: calf tenderness, clubbing, pedal edema Results Laboratory Results: 12/11/17 04:49 12/11/17 04:49 Impressions: Abdomen/Pelvis CT 12/06/17 00:00 IMPRESSION: 1. Borderline hepatomegaly. Periportal lucencies. The findings could be seen with congestive failure hepatitis, or cholangitis 2. Abdominal and pelvic ascites. Chest/Abdomen CTA 12/06/17 10:33 IMPRESSION: 1. Ground-glass infiltrate right upper lobe and right 0 which could represent pneumonia. Endobronchial secretions node with in the lower lobes bilaterally. No pulmonary embolus. 2. Ascites. Chest X-Ray 12/10/17 06:00 IMPRESSION: Interval extubation. Qualifiers - * PATIENT BEING DISCHARGED WITH ANY OF THE FOLLOWING DIAGNOSIS: No Plan Time Spent: Greater than 30 Minutes
== END 2017-12-12 13:33 | disposition home or self-care (01) | DRG 207 ==
LOC: ER 22:59 → EH 12-04 01:21 → ICU 12-04 04:38 → 5 12-10 22:39
PROVIDERS: ADMIT Family Medicine; ATTEND Family Medicine
PROC: 5A1955Z Respiratory Ventilation, Greater than 96 Consecutive Hours (ICD-10-PCS; principal; 2017-12-03)
PROC: 0BH17EZ Insertion of Endotracheal Airway into Trachea, Via Natural or Artificial Opening (ICD-10-PCS; 2017-12-03)
PROC: 3E0F73Z Introduction of Anti-inflammatory into Respiratory Tract, Via Natural or Artificial Opening (ICD-10-PCS; 2017-12-04)
PROC: 5A09457 Assistance with Respiratory Ventilation, 24-96 Consecutive Hours, Continuous Positive Airway Pressure (ICD-10-PCS; 2017-12-04)
PROC: 3E02340 Introduction of Influenza Vaccine into Muscle, Percutaneous Approach (ICD-10-PCS; 2017-12-12)
DX: J96.22 Acute and chronic respiratory failure with hypercapnia (principal); J45.52 Severe persistent asthma with status asthmaticus; R18.8 Other ascites; J20.9 Acute bronchitis, unspecified; K21.9 Gastro-esophageal reflux disease without esophagitis; Z78.1 Physical restraint status; L30.9 Dermatitis, unspecified; F32.9 Major depressive disorder, single episode, unspecified; B95.7 Other staphylococcus as the cause of diseases classified elsewhere; B96.3 Hemophilus influenzae [H. influenzae] as the cause of diseases classified elsewhere; R73.9 Hyperglycemia, unspecified; T38.0X5A Adverse effect of glucocorticoids and synthetic analogues, initial encounter; Z87.891 Personal history of nicotine dependence; Z23 Encounter for immunization; Z91.010 Allergy to peanuts; Z83.6 Family history of other diseases of the respiratory system
CPT/HCPCS: 31500; 36415; 51702; 71045; 71275; 74177; 80048; 80053; 80202; 80307; 81001; 82271; 82803; 82962; 83605; 83735; 84100; 85025; 85610; 86701; 86702; 87040; 87070; 87077; 87086; 87186; 87205; 90471; 90686; 93005; 93010; 93306; 94002; 94003; 94660; 94667; 94668; 96365; 96372; 99291; G0008; J0171; J0330; J0692; J0696; J1100; J1650; J1956; J2250; J2704; J2920; J2930; J3010; J3370; J3475; J3480; J3490; J7030; J7040; J7060; J7620; S0028